=== PATIENT | male | born 1945 | race Caucasian/White ===

== ENCOUNTER 2023-06-13 19:51 | Inpatient (IN) | payer MEDICARE, MEDICAID, SELFPAY ==
[2023-06-13] VITALS (16 sets, daily range): BP systolic 100–150; BP diastolic 52–82; PULSE 95–118; RESP 20–30; TEMP 39.3–40.9; O2SAT 88–99; BMI 29.9
--- NOTE | ~2023-06-13 | XR_ITS ---
EXAMINATION: XR CHEST CLINICAL INFORMATION: SOB COMPARISON: Chest x-ray 06/13/2023 TECHNIQUE: Frontal view of the chest was obtained. FINDINGS: The lungs are somewhat expanded with patchy opacity seen in left lung base retrocardiac region. Heart size and pulmonary vascularity is normal. No gross bony abnormality seen. XR/XR chest 1V IMPRESSION: Patchy opacity left lung base retrocardiac region likely infiltrate.
--- NOTE | ~2023-06-13 | CT_ITS ---
EXAMINATION: CT head/brain wo IV con CLINICAL INFORMATION: Reason for Exam Fall, head injury, rule out fracture, bleed COMPARISON: None. TECHNIQUE: Contiguous axial imaging was performed from the skull base to vertex without intravenous contrast. Sagittal and coronal reformatted images were obtained. This CT examination was performed using dose optimization techniques as appropriate, variously including the following: * Automated exposure control * Adjustment of mA and/or kV according to patient size (this includes techniques or standardized protocols for targeted exams where dose is matched to indication/reason for exam; i.e. extremities or head) Use of iterative reconstruction technique DLP: 709 mGy-cm FINDINGS: Motion degraded examination somewhat compromising diagnostic assessment. Mild global cerebral volume loss. 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 No territorial loss of hardwick-white differentiation. No acute intracranial hemorrhage or extra-axial fluid collection. No mass lesion, significant mass effect, or herniation pattern. The orbits are grossly normal. Air-fluid level in the left sphenoid sinus, which is significantly opacified with some patchy hyperdense and partially mineralized contents, likely reflecting a combination of chronic inspissated secretions with possible fungal elements. Sclerotic wall thickening of the left sphenoid sinus gonzalez related to chronic sinusitis. Motion artifact limits assessment for subtle fractures, however no gross displaced fracture is seen. CT/CT head/brain wo IV con IMPRESSION: 1. No CT evidence of acute intracranial injury within limitations of motion artifact. 2. Significant opacification and air-fluid level in the left sphenoid sinus with sclerotic wall thickening that can be correlated clinically for acute on chronic sinusitis. Some patchy hyperdense and partially mineralized contents, likely reflecting a combination of chronic inspissated secretions with possible fungal elements.
--- NOTE | ~2023-06-13 | XR_ITS ---
EXAMINATION: XR CHEST CLINICAL INFORMATION: Fever. Cough. Rule out pneumonia. COMPARISON: None available. TECHNIQUE: Frontal view of the chest was obtained. FINDINGS: Multiple external artifacts overlie the thorax. Normal appearance of the cardiomediastinal structures. Left base airspace opacities are present with partial obscuration of the left hemidiaphragmatic and descending aortic margin's. Mild scattered reticular opacities are present in the right lung base. Low lung volumes are present with the fourth anterior rib segments terminating projection with the lung bases. No effusions or pneumothoraces identified. XR/XR chest 1V IMPRESSION: *Findings suspicious for mild left lower lobe consolidation and/or atelectasis. *Findings suspicious for minimal right base inflammatory changes.
--- NOTE | ~2023-06-13 | XR_ITS ---
EXAMINATION: XR CHEST 2 VIEWS CLINICAL INFORMATION: Dyspnea. COMPARISON: Prior chest radiographs, most recently 06/15/2023 and 06/13/2023. TECHNIQUE: Frontal and lateral views of the chest were obtained. FINDINGS: The heart size is least top normal. A left pericardial fat pad is unchanged. There is persistent patchy retrocardiac airspace disease. The right lung is relatively clear. No pleural effusion or pneumothorax is seen. There is no acute osseous abnormality. XR/XR chest 2V IMPRESSION: There is persistent retrocardiac airspace disease. The right lung presently appears clear. Recommend radiographic follow-up to full clearance.
--- NOTE | 2023-06-13 20:11 | ECG_ITS ---
Test Reason : SOB Blood Pressure : / mmHG Vent. Rate : 112 BPM Atrial Rate : 112 BPM P-R Int : 148 ms QRS Dur : 092 ms QT Int : 340 ms P-R-T Axes : 060 068 037 degrees QTc Int : 464 ms Sinus tachycardia with occasional Premature ventricular complexes Low voltage QRS Nonspecific ST abnormality Abnormal ECG No previous ECGs available Referred By: Generic ED Physician Electronically Signed By:SERENE PHAM MD
[2023-06-13] MEDS: Acetaminophen 325 MG TABLET 975 MG PO (20:27)
--- NOTE | 2023-06-13 20:31 | ED_ITS ---
HPI - Fall General Chief Complaint: Fever Stated Complaint: UNWIT FALL +HEADSTRIKE,?LOC Time Seen by Provider: 06/13/23 20:15 Source: patient Mode of arrival: EMS Limitations: no limitations History of Present Illness HPI Narrative: 77-year-old male resident of [facility] who presents emergency department for evaluation of multiple falls. Patient is not a reliable informant and told me that he fell out of bed. EMS report to nurses state that the patient fell 3 times at his facility. He felt earlier today but refused transport. After his 3rd fall which was unwitnessed, he was sent to emergency department by ambulance for evaluation. Patient is not on any blood thinners. According to EMS, multiple residents at the patient's rest home are positive for influenza. Patient states that he has had a cough which is productive of phlegm he does feel short of breath otherwise he has no complaints. He denied fever or chills despite having a temperature of 105.6 degrees rectally here in the emergency department. Related Data Allergies Allergy/AdvReac Type Severity Reaction Status Date / Time atorvastatin Allergy Unknown itching Verified 11/20/19 00:00 Review of Systems 2 Review of Systems: Yes Other (Patient is unreliable informant.) REPLACED BY [facility] Social History Social History Smoked in Last 30 Days: No Use of substances other than those prescribed or required for medical reasons: No Advance Directives: Yes Advance Directives Information Provided: No Advance Directives on File: No Physical Exam 2 Vital Signs: Vital Signs: Last Vital Signs Temp 103.1 F H 06/13/23 22:58 Pulse 104 H 06/13/23 22:58 Resp 28 H 06/13/23 22:58 BP 112/52 L 06/13/23 22:58 Pulse Ox 94 06/13/23 22:58 O2 Del Method Nasal Cannula 06/13/23 22:58 O2 Flow Rate 2 06/13/23 22:58 BMI result Body Mass Index 29.9 Vital signs did consistent with an high fever of 105.6 degrees F, elevated pulse of 102 elevated respiratory rate of 22. Exam: General: Awake, alert in no distress Head: Normocephalic, atraumatic EENT: PERRL, Lids normal, sclera normal, conjunctiva normal, nose normal , ears normal, throat without erythema or exudates, very dry mucous membranes Neck: Supple, no adenopathy Lung: Diffuse rhonchi with no wheezing or rales, breath sounds symmetric bilaterally Chest: symmetric movement, nontender Heart: regular rate and rhythm, normal S1, S2 no murmurs or rubs Abdomen: soft, non-tender, nondistended, normal bowel sounds Back: no vertebral tenderness, no CVAT Extremities: no deformities, moves all extremities symmetrically Neuro: Awake, alert, oriented to person lacks insight as to why he is here, normal speech, cranial nerves intact, moves all extremities symmetrically Psych: Pleasant, cooperative Medications Administered Discontinued Medications Generic Name Dose Route Start Last Admin Trade Name Татьяна PRN Reason Stop Dose Admin Acetaminophen 975 mg 06/13/23 20:22 06/13/23 20:27 Acetaminophen 325 Mg Tablet PO 06/13/23 20:23 975 mg ONCE ONE Administration Ceftriaxone Sodium 1 gm/ 50 mls @ 100 mls/hr 06/13/23 20:37 06/13/23 21:14 Sodium Chloride IV 06/13/23 21:06 Infused ONCE ONE Infusion Azithromycin 500 mg/ Sodium 250 mls @ 125 mls/hr 06/13/23 20:37 06/13/23 20:54 Chloride IV 06/13/23 22:36 125 mls/hr ONCE ONE Administration Sodium Chloride 2,601 mls @ 2,601 mls/hr 06/13/23 20:38 06/13/23 22:30 Ns 30 ml/kg infuse over 1 hr (2601 ml) 06/13/23 21:37 Infused IV Infusion .Q1H STA Medical Decision Making Medical Decision Making [facility] Narrative: 77-year-old male resident of [facility] who presents emergency department for evaluation 3 fall at his [facility] with the last fall being unwitnessed. Patient states that he has had a cough which is productive of phlegm he does feel short of breath otherwise he has no complaints. In the emergency department the patient had acute fever, elevated pulse and elevated respiratory rate. Following evaluation was ordered:CBC, CMP, troponin, lipase, BNP, lactic acid, magnesium, COVID-19, influenza blood cultures x2, chest x-ray, CT scan of the brain without IV contrast Patient was treated with the following: Acetaminophen 975 mg orally, Zithromax 500 mg IV ceftriaxone 1 g IV, normal saline 30 cc/kilogram bolus. 22:41 Differential diagnosis: Pneumonia, bronchitis, influenza, COVID-19, dehydration, volume depletion, electrolyte abnormalities, anemia My interpretation patient's laboratory evaluation is as follows: WBC was normal 5700. BUN elevated 53, creatinine elevated 2.06-this is most likely secondary to volume depletion and dehydration not caused by sepsis. Lactic acid was elevated 2.5 this is secondary to starvation ketosis. AST and ALT elevated 109 and 47 with a normal bilirubin of 0.6. Troponin was elevated at 42.6. 3 hour troponin is due at 23:30 hours. BNP was normal. Lipase was normal. COVID-19 was negative. Influenza was positive. Patient's was ordered to get Tamiflu 75 mg orally. Chest x-ray did reveal left lower lobe infiltrate, most consistent with viral pneumonia. Patient was treated with ceftriaxone and azithromycin for possible bacterial etiology Twelve EKG revealed no significant ST segment elevation or depression however baseline with significant artifact secondary to tremors. Admission/Observation Consideration of admission/observation: Escalation of care including admission/observation considered Consult Healthcare Provider Management of the patient was discussed with: Hospitalist Lab Data [facility] [place] Lab Attestation statement: I reviewed the patient's lab results. 06/13/23 20:26 06/13/23 20:26 Labs: Lab Results 06/13/23 06/13/23 Range/Units 20:26 22:40 WBC 5.7 (4.8-10.8) X10*3/uL RBC 4.72 (4.60-5.80) X10*6/uL Hgb 13.7 L (14.0-18.0) g/dl Hct 40.0 L (42.0-52.0) % MCV 84.7 (80.0-98.0) fL MCH 29.0 (27.0-33.0) pg MCHC 34.3 (31.0-36.0) g/dl RDW 14.5 (11.0-16.0) % Plt Count 169 (160-400) X10*3/uL MPV 9.7 (9.4-12.4) fL Immature Gran % (Auto) 0.4 (0.0-0.4) % Neut % (Auto) 82.9 H (45-73) % Lymph % (Auto) 7.2 L (20-40) % Hand % (Auto) 9.3 (2-11) % Eos % (Auto) 0.0 (0-4) % Baso % (Auto) 0.2 (0-2) % Lymph # (Auto) 0.4 L (1.2-4.9) X10*3/uL Hand # (Auto) 0.5 (0.1-1.2) X10*3/uL Eos # (Auto) 0.0 (0.0-0.4) X10*3/uL Baso # (Auto) 0.0 (0.0-0.2) X10*3/uL Abs Immat Gran (auto) 0.02 (0.00-0.03) X10*3/uL Absolute Neuts (auto) 4.7 (2.0-8.3) x10*3/uL Absolute Nucleated RBC 0.000 (0.0-0.012) X10*3/uL Nucleated RBC % (auto) 0.0 (0.0-0.2) /100WBC Hold Blue Top SEE NOTE Sodium 140 (135-145) mmol/L Potassium 3.9 (3.3-5.1) mmol/L Chloride 106 (96-108) mmol/L Carbon Dioxide 22 (22-29) mmol/L Anion Gap 16 (12-20) BUN 53 H (9-16) mg/dL Creatinine 2.06 H (0.5-1.4) mg/dL Estim Creat Clear Calc 31.5 Estimated GFR 31 Random Glucose 124 H (60-115) mg/dL Lactic Acid 2.5 H* (0.5-2.0) mmol/L Lactic Acid F/U @ 2Hr 1.2 (0.5-2.0) mmol/L Calcium 8.7 (8.4-10.2) mg/dL Magnesium 1.7 (1.6-2.6) mg/dL Total Bilirubin 0.6 (0.0-1.0) mg/dL AST 109 H (5-37) U/L ALT 47 H (0-40) U/L Alkaline Phosphatase 61 (39-117) U/L Troponin I High Sens 42.6 H (<3.5-35.0) ng/L B-Natriuretic Peptide 14 (<100) pg/mL Total Protein 8.0 (6.5-8.0) g/dL Albumin 4.4 (3.5-5.0) g/dL Lipase 32 (8-78) U/L COVID-19 (CAT) Negative (Negative) COVID-19 Clin Com See Note Influenza Type A (VALE) Positive A (Negative) Influenza Type B (VALE) Negative (Negative) Influenza A & B Note See Note Independent Interpretation I performed an independent interpretation of an: EKG and Plain X-Ray Interpretation: My independent interpretation patient's one-view chest x-ray is as follows: Left lower lobe infiltrate My independent interpretation done at 20:30 hours is as follows: Sinus tachycardia with a rate of 112, normal ND interval, QRS duration QTC interval, no ST segment elevation, no ST segment depression, baseline with significant artifact secondary to tremors but no obvious T-wave abnormalities. Radiology Impression Discussion of test interpretation with radiology: I have reviewed the radiologist's reading. Radiologist Impression: XR chest 1V IMPRESSION: *Findings suspicious for mild left lower lobe consolidation and/or atelectasis. *Findings suspicious for minimal right base inflammatory changes. Dictated By: Raphael Sargent MD CT head/brain wo IV con IMPRESSION: 1. No CT evidence of acute intracranial injury within limitations of motion artifact. 2. Significant opacification and air-fluid level in the left sphenoid sinus with sclerotic wall thickening that can be correlated clinically for acute on chronic sinusitis. Some patchy hyperdense and partially mineralized contents, likely reflecting a combination of chronic inspissated secretions with possible fungal elements. Dictated By: Shira Small Critical Care Time Critical Care Time Critical Care Time: Yes Total Critical Care Time: 45 Attestation: Critical Care: The patient was critically ill with a high probability of imminent or life threatening deterioration. I spent greater than 30 minutes of discontinuous time evaluating the patient,delivering critical care at the bedside, discussing and evaluating pertinent data with consultants. Critical care time does not include time spent performing separately billable procedures or teaching. Total time spent performing critical care was 45 minutes.
[2023-06-13 20:35] LABS: MANUAL DIFF FLAG NO
--- NOTE | 2023-06-13 20:35 | MHC.EDTECH ---
Patient came in by ambulance,changed into hospital attire,vitals taken and placed on the phototypesetting equipment monitor,Patient's initial temp rectally is 104.5, RN at bedside and was made aware. Rectal sensing probe was placed and temp is 105.3,BP 115/54 at this time.Blood Cultures,labs,covid,and flu obtained and sent to lab. EKG taken per order and signed by provider. Ice applied to underarms,and groin per request of provider. call castellanos in reach
[2023-06-13 20:37] LABS: Basophils Percent Auto 0.2 % (0-2); Hemoglobin 13.7 g/dl (14.0-18.0); Imm Gran Abs Auto 0.02 X10*3/uL (0.00-0.03); Imm Gran Pct Auto 0.4 % (0.0-0.4); Lymphocytes Absolute Auto 0.4 X10*3/uL (1.2-4.9); Lymphocytes Percent Auto 7.2 % (20-40); Mean Corpuscular HGB Conc 34.3 g/dl (31.0-36.0); Mean Corpuscular Volume 84.7 fL (80.0-98.0); Mean Platelet Volume 9.7 fL (9.4-12.4); Monocytes Absolute Auto 0.5 X10*3/uL (0.1-1.2); Monocytes Percent Auto 9.3 % (2-11); Neutrophils Absolute Auto 4.7 x10*3/uL (2.0-8.3); Neutrophils Percent Auto 82.9 % (45-73); Platelet Count 169 X10*3/uL (160-400); Red Blood Count 4.72 X10*6/uL (4.60-5.80); Red Cell Distribution Width 14.5 % (11.0-16.0); White Blood Count 5.7 X10*3/uL (4.8-10.8)
[2023-06-13] MEDS: cefTRIAXone sodium 1 GM in 0.9 % Sodium Chloride 50 ML IV (20:42)
[2023-06-13 20:50] LABS: Lactic Acid 2.5 mmol/L (0.5-2.0)
[2023-06-13 20:52] LABS: Alanine Aminotransferase 47 U/L (0-40); Albumin Level 4.4 g/dL (3.5-5.0); Alkaline Phosphatase 61 U/L (39-117); Anion Gap 16 (12-20); Aspartate Amino Transferase 109 U/L (5-37); Bilirubin Total 0.6 mg/dL (0.0-1.0); Blood Urea Nitrogen 53 mg/dL (9-16); Calcium 8.7 mg/dL (8.4-10.2); Carbon Dioxide 22 mmol/L (22-29); Chloride 106 mmol/L (96-108); Creatinine Clr Calc Pharmacy 31.5; Estimated Glomerular Filt Rate 31; Glucose Random 124 mg/dL (60-115); Magnesium 1.7 mg/dL (1.6-2.6); Potassium 3.9 mmol/L (3.3-5.1); Sodium 140 mmol/L (135-145)
[2023-06-13] MEDS: Azithromycin 500 MG in 0.9 % Sodium Chloride 250 ML 125 MG IV (20:54)
[2023-06-13 20:58] LABS: B Type Natriuretic Peptide 14 pg/mL (<100)
[2023-06-13 20:59] LABS: Troponin-I High Sensitivity 42.6 ng/L (<3.5-35.0)
[2023-06-13 21:01] LABS: IDNOW Serial# 08D9AD1C; IDNOW Serial# 152EDE1D; Influenza A Positive (Negative); Influenza B2 Negative (Negative)
[2023-06-13 21:02] LABS: COVID-19 Test Negative (Negative)
--- NOTE | 2023-06-13 21:06 | PC.NURSE ---
Patient admitted from [facility] S/P fall. Patient's intial rectal temp 104.5, ST on monitor, sepsis protocol initiated per Dr. Lamas. Patient presently getting IV fluid bolus per protocol, abx running, on tele with continual rectal temp monitoring.
[2023-06-13 21:11] LABS: Lipase 32 U/L (8-78)
--- NOTE | 2023-06-13 21:22 | MHC.EDTECH ---
Patient temp at this time is 104.5,BP is 138/52 RN ia aware,patient was incont of stool and placed on the bedpan at this time,
--- NOTE | 2023-06-13 21:28 | MHC.EDTECH ---
Patient was incot. of a small amount of liquid/soft brown stool,brayden-care giving and patient was respoitioned.
--- NOTE | 2023-06-13 21:36 | MHC.EDTECH ---
Placed a [place] Cath due to patient being incot. to keep patient clean and dry, patient tolerated well. RN aware, Vitals at this time 104.0, BP 112/54 RN aware
--- NOTE | 2023-06-13 22:03 | MHC.EDTECH ---
Patient just got back from CT-Scan,Temp is 103.1, BP 117/55 RN aware at bedside.
[2023-06-13 22:34] LABS: Reflex Lactate? Lactic Acid Added
--- NOTE | 2023-06-13 22:42 | PC.NURSE ---
IV Fluids infused, abx infused, patient resting quietly in bed, whifty at times responding well to redirection, Juani Greene presently in room drawing second lactic.
--- NOTE | 2023-06-13 22:46 | MHC.EDTECH ---
Repeat lactic obtained and sent to lab,vitals taken,temp is 102.9,BP is 111/59 RN aware
[2023-06-13 22:57] LABS: ~Lactic Acid-LAB USE ONLY 1.2 mmol/L (0.5-2.0)
--- NOTE | 2023-06-13 23:00 | PC.NURSE ---
This abstract writer assumed care of this Pt at 2300. Pt awake, denies any pain. Febrile via rectal probe. Pt has productive cough with audible wheezing, SpO2 94% on 2L via NC, RR 26. Plan of care on going.
--- NOTE | 2023-06-13 23:00 | MHC.EDTECH ---
Patient's temp is 103.1 BP 112/52 and RN were made aware.
[2023-06-13] MEDS: Ibuprofen 400 MG TABLET PO (23:39)
[2023-06-13] MEDS: Oseltamivir Phosphate 75 MG CAPSULE PO (23:39)
--- NOTE | 2023-06-13 23:40 | MHC.EDTECH ---
Hourly rounds and vitals completed,temp is 103.5 ,BP is 100/58 RN Roslyn made aware,Patient was repositioned to comfort,patient given a cup of ice water and drank all of it. Repeat trop obtained and sent to lab.Belonging list completed and copy placed in chart.
[2023-06-14] VITALS (25 sets, daily range): BP systolic 80–164; BP diastolic 43–88; PULSE 65–111; RESP 16–30; TEMP 35.8–40.2; O2SAT 93–98; BMI 30.4
[2023-06-14 00:11] LABS: Troponin-I High Sensitivity 55.5 ng/L (<3.5-35.0)
--- NOTE | 2023-06-14 00:19 | PC.NURSE ---
Pt has not voided, bladder scan [address] Juan Downs made aware.
[2023-06-14] MEDS: 0.9 % Sodium Chloride 1,000 ML 100 ML IVCONT (00:44)
[2023-06-14] MEDS: Albuterol/Iprat 2.5/0.5MG 3 ML AMPUL.NEB INHALE ×3 (00:45→19:06)
[2023-06-14] MEDS: methylPREDNISolone Sod Succ 125 MG/2 ML VIAL 80 MG IVPUSH (00:49)
[2023-06-14] MEDS: 0.9 % Sodium Chloride Flush 3 ML SYRINGE IVFLUSH ×2 (00:50→19:50)
--- NOTE | 2023-06-14 00:50 | MHC.EDTECH ---
This tech bladder scanned patient due to not voiding since patient arrived,amount 433,RN Roslyn made aware,temp sensing Perez is being placed by RN at this time.
--- NOTE | 2023-06-14 00:59 | MHC.EDTECH ---
Emptied 600MLS of yellow urine from Perez,urine sample obtained and sent to lab, patient's temp is 104.4.BP is 122/65 RN Roslyn made aware
--- NOTE | 2023-06-14 01:00 | PC.NURSE ---
Temp sensing 16F f/c placed, Pt tolerated well. 600 mL of clear yellow urine draining.
[2023-06-14 01:21] LABS: Appearance Urine Cloudy; Color Urine Yellow; Glucose Urine UA Negative (Negative); Leukocyte Esterase Urine Negative (Negative); Nitrite Urine Negative (Negative); PH 5.5 (5.0-9.0); UMIC TRIGGER UACC YES; Urine Blood Large (3+) (Negative); Urine Ketones Trace mg/dL (Negative); Urine Protein 100 (2+) mg/dL (Neg-Trace)
[2023-06-14 01:32] LABS: Bacteria Urine None Seen (None Seen); Granular Casts Urine Present; Hyaline Casts Urine 0-2 /LPF (0-2); RBC Urine 0-2 /HPF (0-2); Squamous Epithelial Cell Urine 0-2 /HPF (0-2); WBC Urine 0-5 /HPF (0-5)
--- NOTE | 2023-06-14 01:41 | PM.IMHP ---
History of Present Illness Date of Service: 06/13/23 Attending physician on admission: Luz Downs Chief Complaint: I have the flu Thierno Maki is a 77 years old man who was brought to the emergency department from nursing facility due to multiple falls. Patient is a vague historian and seems to be confused. He was only capable of telling me that he has the flu. He even denies having a cough while I was watching him coughing. In the ED, he was found to have fever, tachycardia tachypnea. Blood workup showed no leukocytosis or band. Lactic acid initially was 2.5 but normalized. Creatinine is 2.06. Troponin elevated x2. BNP is normal. Viral testing for influenza A. Urinalysis showed no evidence of urinary tract infection. Head CT scan showed no acute intracranial abnormalities, however it showed changes of acute on chronic sinusitis. CXR showed mid left lower lobe consolidated and/or atelectasis. ED tx: Ibuprofen 400 mg p.o., Tamiflu 75 mg p.o., azithromycin 500 mg IV, acetaminophen 972 mg p.o., ceftriaxone 1 g IV, NS 2 L bolus. Review of Systems Review of Systems: Yes Unobtainable due to mental status PMFSH Social History Smoked in Last 30 Days: No Use of substances other than those prescribed or required for medical reasons: No Advance Directives: Yes Advance Directives Information Provided: No Advance Directives on File: No Meds Allergies Allergy/AdvReac Type Severity Reaction Status Date / Time atorvastatin Allergy Unknown itching Verified 11/20/19 00:00 Active Medications: Current Medications Acetaminophen (Acetaminophen 325 Mg Tablet) 975 mg PO Q6H PRN PRN Reason: fever and pain Heparin Sodium (Porcine) (Heparin Sodium,Porcine 5,000 Unit/Ml Vial) 5,000 unit SUBCUT Q12H [facility] Ceftriaxone Sodium 1 gm/ (Sodium Chloride) 50 mls @ 100 mls/hr IV DAILY [facility] Azithromycin 500 mg/ Sodium (Chloride) 250 mls @ 125 mls/hr IV DAILY [facility] Sodium Chloride (Ns) 1,000 mls @ 100 mls/hr IVCONT .Q10H [facility] Last Admin: 06/14/23 00:44 Dose: 100 mls/hr Oseltamivir Phosphate (Oseltamivir Phosphate 30 Mg Capsule) 30 mg PO BID [facility] Pantoprazole Sodium (Pantoprazole Sodium 40 Mg/10 Ml Vial) 40 mg IVPUSH DAILY [facility] Sodium Chloride (0.9 % Sodium Chloride Flush 3 Ml Syringe) 3 ml IVFLUSH QSHIFT [facility] Last Admin: 06/14/23 00:50 Dose: 3 ml Physical Exam Vital Signs and Narrative: Vital Signs: Last Vital Signs Temp 104.4 F H 06/14/23 00:54 Pulse 109 H 06/14/23 00:54 Resp 24 H 06/14/23 00:54 BP 122/65 06/14/23 00:54 Pulse Ox 94 06/14/23 00:54 O2 Del Method Nasal Cannula 06/14/23 00:54 O2 Flow Rate 2 06/14/23 00:54 BMI result Body Mass Index 29.9 Constitutional - Awake and Alert. Febrile. Acutely ill. HEENT - dry oral mucosa. Heart - Tachycardia. Regular rate Lungs - Normal lung expansion, Normal respiratory effort, No respiratory distress, tachypnea, bilateral rhonchi, end expiratory wheezing. Abdomen - NT / ND; +BS; No rebound or guarding Extremities - no calf tenderness bilaterally, no swelling Musculoskeletal - Normal inspection, normal ROM Skin - Warm/Dry Neurological - Alert & oriented x1. No focal weakness grossly noted. Psychological - Depressed affect Results Labs 06/13/23 20:26 06/13/23 20:26 Labs: Laboratory Results - last 24 hr 06/13/23 06/13/23 06/13/23 20:26 22:40 23:39 MCV 84.7 MCH 29.0 MCHC 34.3 RDW 14.5 Plt Count 169 MPV 9.7 Immature Gran % (Auto) 0.4 Neut % (Auto) 82.9 H Lymph % (Auto) 7.2 L [place] % (Auto) 9.3 Eos % (Auto) 0.0 Baso % (Auto) 0.2 Lymph # (Auto) 0.4 L [place] # (Auto) 0.5 Eos # (Auto) 0.0 Baso # (Auto) 0.0 Abs Immat Gran (auto) 0.02 Absolute Neuts (auto) 4.7 Absolute Nucleated RBC 0.000 Nucleated RBC % (auto) 0.0 Hold Blue Top SEE NOTE Anion Gap 16 Estim Creat Clear Calc 31.5 Estimated GFR 31 Random Glucose 124 H Lactic Acid 2.5 H* Lactic Acid F/U @ 2Hr 1.2 Calcium 8.7 Magnesium 1.7 Total Bilirubin 0.6 AST 109 H ALT 47 H Alkaline Phosphatase 61 Troponin I High Sens 42.6 H 55.5 H B-Natriuretic Peptide 14 Total Protein 8.0 Albumin 4.4 Lipase 32 Urine Color Urine Appearance Urine pH Ur Specific [place] Urine Protein Urine Glucose (UA) Urine Ketones Urine Blood Urine Nitrite Ur Leukocyte Esterase Urine RBC Urine WBC Ur Squamous Epith Cells Urine Bacteria Hyaline Casts Granular Casts COVID-19 (CAT) Negative COVID-19 Clin Com See Note Influenza Type A (VALE) Positive A Influenza Type B (VALE) Negative Influenza A & B Note See Note 06/14/23 01:13 MCV MCH MCHC RDW Plt Count MPV Immature Gran % (Auto) Neut % (Auto) Lymph % (Auto) [place] % (Auto) Eos % (Auto) Baso % (Auto) Lymph # (Auto) [place] # (Auto) Eos # (Auto) Baso # (Auto) Abs Immat Gran (auto) Absolute Neuts (auto) Absolute Nucleated RBC Nucleated RBC % (auto) Hold Blue Top Anion Gap Estim Creat Clear Calc Estimated GFR Random Glucose Lactic Acid Lactic Acid F/U @ 2Hr Calcium Magnesium Total Bilirubin AST ALT Alkaline Phosphatase Troponin I High Sens B-Natriuretic Peptide Total Protein Albumin Lipase Urine Color Yellow Urine Appearance Cloudy Urine pH 5.5 Ur Specific [place] 1.020 Urine Protein 100 (2+) H Urine Glucose (UA) Negative Urine Ketones Trace Urine Blood Large (3+) H Urine Nitrite Negative Ur Leukocyte Esterase Negative Urine RBC 0-2 Urine WBC 0-5 Ur Squamous Epith Cells 0-2 Urine Bacteria None Seen Hyaline Casts 0-2 Granular Casts Present COVID-19 (CAT) COVID-19 Clin Com Influenza Type A (VALE) Influenza Type B (VALE) Influenza A & B Note Imaging Radiologist's Impressions: Impressions Chest X-Ray 06/13/23 21:05 IMPRESSION: *Findings suspicious for mild left lower lobe consolidation and/or atelectasis. *Findings suspicious for minimal right base inflammatory changes. Head CT 06/13/23 22:01 IMPRESSION: 1. No CT evidence of acute intracranial injury within limitations of motion artifact. 2. Significant opacification and air-fluid level in the left sphenoid sinus with sclerotic wall thickening that can be correlated clinically for acute on chronic sinusitis. Some patchy hyperdense and partially mineralized contents, likely reflecting a combination of chronic inspissated secretions with possible fungal elements. Assessment and Plan (1) Influenza A: Status: Acute (2) Pneumonia: Qualifiers: Laterality: left Lung location: lower lobe of lung Pneumonia type: due to unspecified organism Qualified Code(s): J18.9 - Pneumonia, unspecified organism Status: Acute (3) Acute hypoxic respiratory failure: Status: Acute (4) ENEDELIA (acute kidney injury): Status: Acute (5) Elevated troponin: Status: Acute Plan Thierno Maki is a 77 years old man admitted with: Acute hypoxic respiratory failure secondary to pneumonia due to influenza + likely superimposed bacterial infection. Admit to hospitalist service. Telemetry. Pulse oximetry. Continue supplemental oxygen to keep oxygen saturation > 90%. Continue empiric IV antibiotic therapy with azithromycin and ceftriaxone. Complete a course of Tamiflu X 5 days. Start treatment with bronchodilator therapy. Solu-Medrol 80 mg IV x1 (to help with bronchospasm and also in attempt to control his temp -most recent 104.4 as Tylenol and Motrin has not been helping to control his temperature. Severe sepsis secondary to above. Lactic acidosis resolved. Continue empiric IV antibiotic therapy and IV fluids. NS bolus given in ED. Blood cultures were obtained (will follow results). Renal failure (no previous history of renal failure or baseline creatinine found). Continue IV fluids. Avoid nephrotoxic agents. Continue to monitor renal function. Elevated troponin. Likely demand ischemia due to tachycardia. Continue to monitor troponin. DVT prophylaxis: Heparin subcut Code status: Full Patient will need hospitalization for at least 2 midnights for acute hypoxic respiratory failure therapy secondary to pneumonia (possible superimposed by bacterial) treatment with supplemental oxygen, IV antibiotics, IV fluids and bronchodilator therapy. Quality Stroke Does the patient have a stroke diagnosis?: No VTE Prior VTE?: No VTE Risk Level:: Medical - moderate - high VTE Device Contraindication: Treatment Not Indicated VTE Drug Contraindication: N/A - Med Ordered
--- NOTE | 2023-06-14 02:15 | MHC.EDTECH ---
Patient was incont. of a large amount of liquid brown stool, patient was cleaned and repositioned,rectal sensing probe removed, switched to the temp sensing Perez that RN placed. rounds and vitals completed and temp is 104.4,BP is 109/47 RN Roslyn made aware. Call castellanos in reach
[2023-06-14] MEDS: Acetaminophen 1,000 MG/100 ML PIGGYBACK 400 MG IV (02:36)
--- NOTE | 2023-06-14 02:39 | MHC.EDTECH ---
Vitals taken and BP is 101/57,Temp is 104.0 RN made aware,patient is resting at this time and call castellanos in reach
--- NOTE | 2023-06-14 02:58 | MHC.EDTECH ---
Vitals taken and BP is 92/53,temp 103.6 RN Roslyn aware and is at bedside
[2023-06-14] MEDS: 0.9 % Sodium Chloride 1,000 ML 999 ML IV (03:01)
--- NOTE | 2023-06-14 03:28 | MHC.EDTECH ---
Hourly rounds and vitals completed,BP is low 90/43 Temp is 101.7 RN Roslyn was made aware. Patient is resting comfortably at this time.
--- NOTE | 2023-06-14 03:29 | MHC.EDTECH ---
Report giving to the tech taking over at this time.
[2023-06-14] MEDS: vancomycin/NS 2,000 MG/500 ML PLAST..BAG 250 MG IV (03:48)
--- NOTE | 2023-06-14 03:54 | PC.NURSE ---
BP still hypotensive despite 1L NS bolus administration. Provider Vani Martinez made aware, new order given for additional bolus.
[2023-06-14] MEDS: 0.9 % Sodium Chloride 500 ML 999 ML IV (04:09)
[2023-06-14] MEDS: Albumin Human 25 % 100 ML IV ×2 (04:31→05:51)
--- NOTE | 2023-06-14 04:56 | MHC.EDTECH ---
Patients BP is 87/55,temp 97.5,RN is at bedside and is aware
[2023-06-14 05:19] LABS: Hemoglobin 10.6 g/dl (14.0-18.0); Mean Corpuscular HGB Conc 34.2 g/dl (31.0-36.0); Mean Corpuscular Hemoglobin 29.4 pg (27.0-33.0); Mean Corpuscular Volume 86.1 fL (80.0-98.0); Mean Platelet Volume 9.6 fL (9.4-12.4); Platelet Count 104 X10*3/uL (160-400); Red Cell Distribution Width 14.6 % (11.0-16.0)
[2023-06-14 05:23] LABS: White Blood Count 2.3 X10*3/uL (4.8-10.8)
[2023-06-14 05:42] LABS: Troponin-I High Sensitivity 63.8 ng/L (<3.5-35.0)
--- NOTE | 2023-06-14 05:43 | MHC.EDTECH ---
Hourly rounds and vitals completed,patient's temp is 96.8,BP is 93/58 RN Roslyn made aware
--- NOTE | 2023-06-14 05:53 | MHC.EDTECH ---
Perez emptied 450MLS of yellow urine.
[2023-06-14 05:57] LABS: Alanine Aminotransferase 43 U/L (0-40); Alkaline Phosphatase 40 U/L (39-117); Anion Gap 15 (12-20); Aspartate Amino Transferase 128 U/L (5-37); Bilirubin Total 0.4 mg/dL (0.0-1.0); Blood Urea Nitrogen 40 mg/dL (9-16); Calcium 6.6 mg/dL (8.4-10.2); Carbon Dioxide 15 mmol/L (22-29); Chloride 115 mmol/L (96-108); Creatinine Clr Calc Pharmacy 40.4; Estimated Glomerular Filt Rate 42; Glucose Random 110 mg/dL (60-115); Magnesium 1.5 mg/dL (1.6-2.6); Sodium 142 mmol/L (135-145); Total Protein 5.5 g/dL (6.5-8.0)
[2023-06-14 06:09] LABS: Band Neutrophils Percent 42 % (3-5); Lymphocytes Absolute Manual 0.4 X10*3/uL (1.2-4.9); Lymphocytes Percent Manual 16 % (20-40); Metamyelocytes Percent 2 %; Monocytes Absolute Manual 0.2 X10*3/uL (0.1-1.2); Monocytes Percent Manual 9 % (2-11); Neutrophils Absolute Manual 1.7 X10*3/uL (2.0-8.3); Neutrophils Percent Manual 31 % (45-73)
[2023-06-14 06:11] LABS: Acanthocytes 1+ (0-2) /OIF; Platelet Estimate DECREASED (NORMAL); Platelet Morphology Comment NORMAL; RBC Morphology NOTED; Toxic Vacuolation PRESENT
--- NOTE | 2023-06-14 06:46 | MHC.EDTECH ---
Patients's temp is 96.4 and BP is 118/75 RN is aware and at bedside.
--- NOTE | 2023-06-14 07:18 | PM.EVENT ---
Event Note Date of Service: 06/14/23 Event Note: Patient's blood pressure started to drop significantly. He received 1 L of normal saline (boluses). Vancomycin was added to current treatment. Discussed with ICU provider: Recommend treatment with albumin. After all these interventions patient blood pressure increased to 118/75 and tachycardia resolved. Temperature is 96.4 (will continue to monitor for now) Time Spent With Patient Time: Total time managing care of this patient today ____ minutes.
--- NOTE | 2023-06-14 07:24 | PC.NURSE ---
Temp 96.4 via temp sensing denisse. Provider Vani Downs made aware, no new orders at this time.
[2023-06-14] MEDS: Magnesium Sulfate/H2O 2 GM/50 ML PIGGYBACK IV (07:37)
[2023-06-14] MEDS: KCl 40 mEq in 0.9 % Sodium Chl 40 MEQ/1,000 ML IV.SOLN 100 MEQ IVCONT (07:38)
--- NOTE | 2023-06-14 07:46 | PHA.PROG ---
Admission Date/Time: June 13, 2023 23:49 Indication: Sepsis Weight in k.7 kg Adjusted body weight in K.34 Serum Creatinine - Last 168 Hours 06/13/23 06/14/23 20:26 04:23 Creatinine 2.06 H 1.61 H Estimated CrCl and GFR - Last 168 Hours 06/13/23 06/14/23 20:26 04:23 Estim Creat Clear Calc 31.5 40.4 Estimated GFR 31 42 Vancomycin Loading Dose: 2,000mg Current Vancomycin Dosing Regimen: 1,250mg Q24H Vancomycin Monitoring using AUC goal of 400 - 600 range with trough as surrogate marker: 583 Date and Time for next Vancomycin Level to be drawn: 06/17 at 05:00 Pharmacist Comments on Vancomycin Plan: Vancomycin dosing will take advantage of [employer] as a clinical decision support tool that uses Bayesian modeling to calculate individual patient's pharmacokinetic parameters and forecast the patient's drug concentration time course with the target goal AUC 24 range of 400 - 600 mg/L/hr.
[2023-06-14] MEDS: Albuterol Sulfate 2.5 MG, Albuterol/Iprat 2.5/0.5MG 3 ML 3 ML INHALE (08:07)
--- NOTE | 2023-06-14 08:21 | PC.NURSE ---
Okay to place Bronchodilator protocol per Dr Caceres, pt noted with audible wheezing. RT to bedside and treatment given with effect.
[2023-06-14] MEDS: Potassium Chloride ER 20 MEQ TAB.ER.PRT PO (09:18)
[2023-06-14] MEDS: Sodium Bicarbonate 650 MG TABLET PO ×2 (09:18→19:49)
[2023-06-14] MEDS: Pantoprazole Sodium 40 MG/10 ML VIAL IVPUSH (09:21)
[2023-06-14] MEDS: Heparin Sodium,Porcine 5,000 UNIT/ML VIAL 5000 UNIT SUBCUT ×2 (09:22→19:50)
[2023-06-14] MEDS: cefTRIAXone sodium 1 GM in 0.9 % Sodium Chloride 50 ML IV (09:24)
[2023-06-14] MEDS: Oseltamivir Phosphate 30 MG CAPSULE PO ×2 (09:25→19:49)
--- NOTE | 2023-06-14 09:25 | MHC.CM.PN ---
CM met with Patient in the ED, at bedside and addressed IMM with him, providing Patient with the original and a copy will be placed on the chart. Patient lives in a [facility] and returning there is the goal; CM has initiated and will follow for dc planning. Patient's Daughter/Taya is the HCP and the PCP is Dr. Odell Velasco.
--- NOTE | 2023-06-14 09:29 | PHA.MEDREC ---
Pharmacy Consult ? Medication Reconciliation Pharmacy has completed the medication reconciliation. Spoke to patient and confirmed medication list.
[2023-06-14] MEDS: Azithromycin 500 MG in 0.9 % Sodium Chloride 250 ML 125 MG IV (10:26)
--- NOTE | 2023-06-14 13:16 | PC.NURSE ---
pts daughter (HCP) called, asks for an update once he is admitted to floor. Taya- [phone]
--- NOTE | 2023-06-14 15:00 | PC.NURSE ---
pump malfunction, infusion restarted, 900 mL remaining.
--- NOTE | 2023-06-14 15:14 | P.PNIM_ITS ---
Subjective Subjective Date of Service: 06/14/23 Interval History: Acute hypoxic respiratory failure Review of Systems sob somewhat improving, has cough fevers overnight overnight events noted Physical Exam 2 Vital Signs: Vital Signs: Last Vital Signs Temp 96.8 F 06/14/23 12:45 Pulse 65 06/14/23 12:45 Resp 20 06/14/23 12:45 BP 100/70 06/14/23 12:45 Pulse Ox 97 06/14/23 12:45 O2 Del Method Nasal Cannula 06/14/23 12:45 O2 Flow Rate 2 06/14/23 12:45 BMI result Body Mass Index 29.9 Appearance: Alert.? Oriented .? cvs: rrr, [id number] , no murmur res: air entry diminshed ,few rhonchii b/l, no rales abd: no rebound or guarding ,nt, bs present. ext pulses present , no cyanosis . neuro: nonfocal. Objective Data Active Medications Acetaminophen (Acetaminophen 325 Mg Tablet) 975 mg PO Q6H PRN PRN Reason: fever and pain Guaifenesin (Guaifenesin 100 Mg/5 Ml Liquid) 5 ml PO Q4H PRN PRN Reason: Cough Heparin Sodium (Porcine) (Heparin Sodium,Porcine 5,000 Unit/Ml Vial) 5,000 unit SUBCUT Q12H [facility] Last Admin: 06/14/23 09:22 Dose: 5,000 unit Documented By: CAROLINE Ceftriaxone Sodium 1 gm/ (Sodium Chloride) 50 mls @ 100 mls/hr IV DAILY [facility] Last Infusion: 06/14/23 10:26 Dose: Infused Documented By: CAROLINE Azithromycin 500 mg/ Sodium (Chloride) 250 mls @ 125 mls/hr IV DAILY [facility] Last Infusion: 06/14/23 12:35 Dose: Infused Documented By: RY Potassium Chloride/Sodium Chloride (Kcl 40 Meq In 0.9 % Sodium Chl) 40 meq in 1,000 mls @ 100 mls/hr IVCONT .Q10H [facility] Last Admin: 06/14/23 07:38 Dose: 100 mls/hr Documented By: CAORLINE Vancomycin HCl 1,250 mg/ (Sodium Chloride) 250 mls @ 166.667 mls/hr IV Q24H [facility] Oseltamivir Phosphate (Oseltamivir Phosphate 30 Mg Capsule) 30 mg PO BID [facility] Last Admin: 06/14/23 09:25 Dose: 30 mg Documented By: CAROLINE Pantoprazole Sodium (Pantoprazole Sodium 40 Mg/10 Ml Vial) 40 mg IVPUSH DAILY [facility] Last Admin: 06/14/23 09:21 Dose: 40 mg Documented By: CAROLINE Pharmacy Consult (Consult Rx Vancomycin Dosing) 1 each MISCELLANE DAILY PRN PRN Reason: Consult order Sodium Bicarbonate (Sodium Bicarbonate 650 Mg Tablet) 650 mg PO BID [facility] Last Admin: 06/14/23 09:18 Dose: 650 mg Documented By: CAROLINE Sodium Chloride (0.9 % Sodium Chloride Flush 3 Ml Syringe) 3 ml IVFLUSH QSHIFT [facility] Last Admin: 06/14/23 15:02 Dose: Not Given Documented By: CAROLINE Non-Admin Reason: IV Running Labs 06/14/23 04:23 06/14/23 04:23 Labs: Laboratory Results - last 24 hr 06/13/23 06/13/23 06/13/23 20:26 22:40 23:39 MCV 84.7 MCH 29.0 MCHC 34.3 RDW 14.5 Plt Count 169 MPV 9.7 Immature Gran % (Auto) 0.4 Neut % (Auto) 82.9 H Lymph % (Auto) 7.2 L [place] % (Auto) 9.3 Eos % (Auto) 0.0 Baso % (Auto) 0.2 Lymph # (Auto) 0.4 L [place] # (Auto) 0.5 Eos # (Auto) 0.0 Baso # (Auto) 0.0 Abs Immat Gran (auto) 0.02 Absolute Neuts (auto) 4.7 Absolute Nucleated RBC 0.000 Nucleated RBC % (auto) 0.0 Neutrophils % (Manual) Band Neutrophils % Lymphocytes % (Manual) Monocytes % (Manual) Metamyelocytes % Abs Neuts (Manual) Lymphocytes # (Manual) Monocytes # (Manual) Toxic Vacuolation Platelet Estimate Plt Morphology Comment RBC Morphology Acanthocytes (Spur) Smear Path Review Hold Blue Top SEE NOTE Anion Gap 16 Estim Creat Clear Calc 31.5 Estimated GFR 31 Random Glucose 124 H Lactic Acid 2.5 H* Lactic Acid F/U @ 2Hr 1.2 Calcium 8.7 Magnesium 1.7 Total Bilirubin 0.6 AST 109 H ALT 47 H Alkaline Phosphatase 61 Troponin I High Sens 42.6 H 55.5 H B-Natriuretic Peptide 14 Total Protein 8.0 Albumin 4.4 Lipase 32 Urine Color Urine Appearance Urine pH Ur Specific [place] Urine Protein Urine Glucose (UA) Urine Ketones Urine Blood Urine Nitrite Ur Leukocyte Esterase Urine RBC Urine WBC Ur Squamous Epith Cells Urine Bacteria Hyaline Casts Granular Casts COVID-19 (CAT) Negative COVID-19 Clin Com See Note Influenza Type A (VALE) Positive A Influenza Type B (VALE) Negative Influenza A & B Note See Note 06/14/23 06/14/23 06/14/23 01:13 04:04 04:23 MCV 86.1 MCH 29.4 MCHC 34.2 RDW 14.6 Plt Count 104 L D MPV 9.6 Immature Gran % (Auto) Cancelled Neut % (Auto) Cancelled Lymph % (Auto) Cancelled [place] % (Auto) Cancelled Eos % (Auto) Cancelled Baso % (Auto) Cancelled Lymph # (Auto) Cancelled [place] # (Auto) Cancelled Eos # (Auto) Cancelled Baso # (Auto) Cancelled Abs Immat Gran (auto) Cancelled Absolute Neuts (auto) Cancelled Absolute Nucleated RBC 0.000 Nucleated RBC % (auto) 0.0 Neutrophils % (Manual) 31 L Band Neutrophils % 42 H Lymphocytes % (Manual) 16 L Monocytes % (Manual) 9 Metamyelocytes % 2 Abs Neuts (Manual) 1.7 L Lymphocytes # (Manual) 0.4 L Monocytes # (Manual) 0.2 Toxic Vacuolation PRESENT Platelet Estimate DECREASED Plt Morphology Comment NORMAL RBC Morphology NOTED Acanthocytes (Spur) 1+ (0-2) Smear Path Review SEE NOTE Hold Blue Top Anion Gap 15 Estim Creat Clear Calc 40.4 Estimated GFR 42 Random Glucose 110 Lactic Acid 1.0 Lactic Acid F/U @ 2Hr Calcium 6.6 L D Magnesium 1.5 L Total Bilirubin 0.4 AST 128 H ALT 43 H Alkaline Phosphatase 40 Troponin I High Sens 63.8 H B-Natriuretic Peptide Total Protein 5.5 L Albumin 3.0 L Lipase Urine Color Yellow Urine Appearance Cloudy Urine pH 5.5 Ur Specific [place] 1.020 Urine Protein 100 (2+) H Urine Glucose (UA) Negative Urine Ketones Trace Urine Blood Large (3+) H Urine Nitrite Negative Ur Leukocyte Esterase Negative Urine RBC 0-2 Urine WBC 0-5 Ur Squamous Epith Cells 0-2 Urine Bacteria None Seen Hyaline Casts 0-2 Granular Casts Present COVID-19 (CAT) COVID-19 Clin Com Influenza Type A (VALE) Influenza Type B (VALE) Influenza A & B Note Assessment and Plan (1) ENEDELIA (acute kidney injury): Status: Acute (2) Acute hypoxic respiratory failure: Status: Acute Assessment and Plan: 77 years old man admitted with: Acute hypoxic respiratory failure possible secondary to pneumonia due to influenza + likely superimposed bacterial infection. moniter Pulse oximetry. Continue supplemental oxygen to keep oxygen saturation > 90%. has intermittent fevers ,blood cultures pending continue IV antibiotic therapy with azithromycin and ceftriaxone and vanco intiated on 06/14,Tamiflu X 5 days, bronchodilator therapy,iv solumedrole. moniter vanco trough ,renal function/electrolytes Severe sepsis secondary to above. Lactic acidosis resolved recived ivf. Continue empiric IV antibiotic therapy ,Blood cultures pending. Renal failure (no previous history of renal failure or baseline creatinine found). renal function improving with IV fluids. Avoid nephrotoxic agents. Continue to monitor renal function. hypokalemia/hypomagnesemia /hypocalcemia : on ivf with potassium Hypomagnesemia repletions ordered, as well as hypocalcemia mild(around 7.4)when corrected for albumin: added calcium carbonate. added nephro eval. Elevated troponin. Likely demand ischemia due to tachycardia. Continue to monitor troponin. DVT prophylaxis: Heparin subcut acute hypoxic respiratory failure possible secondary to pneumonia , ENEDELIA, multiple electrolytic abnormalities: Patient need broad-spectrum IV antibiotics, renal function electrolyte monitoring as well as patient is currently oxygen dependent due to acute hypoxemic respiratory failure-in my opinion patient would benefit from 48-72 hours of hospital stay. Quality Stroke Does the patient have a stroke diagnosis?: No VTE Prior VTE?: No VTE Risk Level:: Medical - moderate - high VTE Device Contraindication: Treatment Not Indicated VTE Drug Contraindication: N/A - Med Ordered
[2023-06-14] MEDS: methylPREDNISolone Sod Succ 40 MG/ML VIAL IVPUSH (17:06)
[2023-06-14] MEDS: Atorvastatin Calcium 80 MG TABLET PO (19:49)
--- NOTE | 2023-06-14 20:38 | PM.CNNEP ---
History of Present Illness Reason for Consult Consult date: 06/14/23 Reason for consult: ENEDELIA Chief Complaint Chief complaint: Hypoxic Respiratory Failure History of Present Illness Narrative: Thierno Maki is a 77 years old man who was brought to the emergency department from nursing facility due to multiple falls.In the ED, he was found to have fever, tachycardia tachypnea. Blood workup showed no leukocytosis or band. Lactic acid initially was 2.5 but normalized. Creatinine was 2.06. Troponin elevated x2. BNP isViral testing for influenza A. Urinalysis showed no evidence of urinary tract infection. Head CT scan showed no acute intracranial abnormalities, however it showed changes of acute on chronic sinusitis. CXR showed mid left lower lobe consolidated and/or atelectasis. In the ED tx given included Ibuprofen 400 mg p.o., Tamiflu 75 mg p.o., azithromycin 500 mg IV, acetaminophen 972 mg p.o., ceftriaxone 1 g IV, NS 2 L bolus.Nephrology was consulted to assist in his clinical management of his ENEDELIA Review of Systems Review of Systems Yes Unobtainable due to mental condition [facility]LY [facility] Past Medical History Medical History (Updated 06/14/23 @ 17:44 by Lesley Mondragon RN) GERD (gastroesophageal reflux disease) Hypercholesteremia Hypertension Social History Social History Household Members: None Household Members Other:: Pt from [facility] Housing: Longterm Do you presently have visiting nurse or other home services: No Patient Tobacco Use Status: Never used Tobacco Advance Directives Date on File: 06/14/23 service: No Meds Allergies Allergy/AdvReac Type Severity Reaction Status Date / Time atorvastatin Allergy Unknown itching Verified 11/20/19 00:00 Active Medications: Current Medications Acetaminophen (Acetaminophen 325 Mg Tablet) 975 mg PO Q6H PRN PRN Reason: fever and pain Albuterol/Ipratropium (Albuterol/Iprat 2.5/0.5mg 3 Ml Ampul.Neb) 3 ml INHALE RQ4H WHILE AWAKE [facility] Last Admin: 06/14/23 19:06 Dose: 3 ml Albuterol/Ipratropium (Albuterol/Iprat 2.5/0.5mg 3 Ml Ampul.Neb) 3 ml INHALE Q3H PRN PRN Reason: sob Amlodipine Besylate (Amlodipine Besylate 5 Mg Tablet) 5 mg PO DAILY [facility]; Protocol Atorvastatin Calcium (Atorvastatin Calcium 80 Mg Tablet) 80 mg PO BEDTIME [facility] Last Admin: 06/14/23 19:49 Dose: 80 mg Calcium Carbonate (Calcium Carbonate 500 Mg Tablet) 500 mg PO DAILY [facility] Last Admin: 06/14/23 16:28 Dose: 500 mg Guaifenesin (Guaifenesin 100 Mg/5 Ml Liquid) 5 ml PO Q4H PRN PRN Reason: Cough Heparin Sodium (Porcine) (Heparin Sodium,Porcine 5,000 Unit/Ml Vial) 5,000 unit SUBCUT Q12H [facility] Last Admin: 06/14/23 19:50 Dose: 5,000 unit Ceftriaxone Sodium 1 gm/ (Sodium Chloride) 50 mls @ 100 mls/hr IV DAILY [facility] Last Infusion: 06/14/23 10:26 Dose: Infused Azithromycin 500 mg/ Sodium (Chloride) 250 mls @ 125 mls/hr IV DAILY [facility] Last Infusion: 06/14/23 12:35 Dose: Infused Vancomycin HCl 1,250 mg/ (Sodium Chloride) 250 mls @ 166.667 mls/hr IV Q24H [facility] Methylprednisolone Sodium Succinate (Methylprednisolone Sod Succ 40 Mg/Ml Vial) 40 mg IVPUSH Q12H [facility] Last Admin: 06/14/23 17:06 Dose: 40 mg Omeprazole (Omeprazole 20 Mg Capsule.Dr) 20 mg PO DAILY@0630 [facility] Oseltamivir Phosphate (Oseltamivir Phosphate 30 Mg Capsule) 30 mg PO BID [facility] Last Admin: 06/14/23 19:49 Dose: 30 mg Pantoprazole Sodium (Pantoprazole Sodium 40 Mg/10 Ml Vial) 40 mg IVPUSH DAILY [facility] Last Admin: 06/14/23 09:21 Dose: 40 mg Pharmacy Consult (Consult Rx Vancomycin Dosing) 1 each MISCELLANE DAILY PRN PRN Reason: Consult order Sodium Bicarbonate (Sodium Bicarbonate 650 Mg Tablet) 650 mg PO BID [facility] Last Admin: 06/14/23 19:49 Dose: 650 mg Sodium Chloride (0.9 % Sodium Chloride Flush 3 Ml Syringe) 3 ml IVFLUSH QSHIFT [facility] Last Admin: 06/14/23 19:50 Dose: 3 ml Home Medications Medication Instructions Recorded Confirmed Last Taken Type amlodipine 5 mg tablet 5 mg PO DAILY 06/14/23 06/14/23 06/12/23 History lisinopril 30 mg tablet 30 mg PO DAILY 0206/14/23 06/12/23 History pantoprazole 20 mg tablet,delayed 20 mg PO DAILY 06/14/23 06/14/23 06/12/23 History release rosuvastatin 20 mg tablet 20 mg PO BEDTIME 06/14/23 06/14/23 06/12/23 History tramadol 50 mg tablet 50 mg PO Q6H PRN Pain 06/14/23 06/14/23 Unknown History Physical Exam Vital Signs: Last Vital Signs Temp 99.5 F 06/14/23 19:27 Pulse 89 06/14/23 19:27 Resp 22 H 06/14/23 19:27 BP 156/86 H 06/14/23 19:27 Pulse Ox 96 06/14/23 19:27 O2 Del Method Nasal Cannula 06/14/23 19:27 O2 Flow Rate 2 06/14/23 19:27 BMI result Body Mass Index 30.4 Const General: comfortable and no acute distress HEENT Head: Yes normocephalic Mouth: Normal oral and palatal mucosa present Eyes EOM: EOMs intact bilaterally Neck Neck: Yes supple Resp Auscultation: rhonchi Cardio Jugular venous distension: no JVD Rate: regular rate GI Palpation (GI): Soft to palpation Auscultation: normal bowel sounds General: Yes no CVA tenderness Back/Spine/Pelvis Back: no CVA tenderness Skin General skin exam: no rashes or lesions noted Neuro General: moves all extremities Extrem General: Yes no pedal edema Results Lab Results 06/14/23 04:23 06/14/23 04:23 Lab results: Chemistry 06/13/23 06/14/23 20:26 04:23 Sodium 140 142 Potassium 3.9 3.0 L D Carbon Dioxide 22 15 L BUN 53 H 40 H Creatinine 2.06 H 1.61 H Calcium 8.7 6.6 L D Hematology 06/13/23 06/14/23 20:26 04:23 WBC 5.7 2.3 L Hgb 13.7 L 10.6 L D Plt Count 169 104 L D Urinalysis 06/14/23 01:13 Urine Color Yellow Urine Appearance Cloudy Urine pH 5.5 Ur Specific Marion 1.020 Urine Protein 100 (2+) H Urine Glucose (UA) Negative Urine Ketones Trace Urine Blood Large (3+) H Urine Nitrite Negative Ur Leukocyte Esterase Negative Urine RBC 0-2 Urine WBC 0-5 Ur Squamous Epith Cells 0-2 Hyaline Casts 0-2 Assessment and Plan (1) ENEDELIA (acute kidney injury): Status: Acute Plan ENEDELIA due to compromised renal perfusion with resultant tubular injury Had altered autoregulation of the kidney given he was on ACEI ACEI on hold; No NSAID's. UO good; No reason to suspect obstructive uropathy/GN/AIN C/W current supportive care for now. No indication for HD; Labs AM; Shall closely F/U Procedures Date of Service Date of Service: 06/14/23
[2023-06-15] VITALS (13 sets, daily range): BP systolic 116–179; BP diastolic 64–99; PULSE 74–140; RESP 19–28; TEMP 36.4–37.6; O2SAT 90–95
--- NOTE | 2023-06-15 03:50 | HO.SKINPHOTO ---
Location: Coccyx Category: MASD Stage: Length: Width: Depth: cm
[2023-06-15] MEDS: Omeprazole 20 MG CAPSULE.DR PO (04:29)
[2023-06-15] MEDS: guaiFENesin 100 MG/5 ML LIQUID PO (04:29)
[2023-06-15] MEDS: methylPREDNISolone Sod Succ 40 MG/ML VIAL IVPUSH ×2 (04:30→15:47)
[2023-06-15] MEDS: vancomycin HCL 1,250 MG in 0.9 % Sodium Chloride 250 ML 166.67 MG IV (06:09)
[2023-06-15 06:39] LABS: Creatinine Clr Calc Pharmacy 53.2; Estimated Glomerular Filt Rate 57
[2023-06-15 06:48] LABS: Parathyroid Hormone Intact 107.5 pg/mL (8.7-77.1)
--- NOTE | 2023-06-15 07:00 | CA_ITS ---
Transthoracic Echocardiogram Patient (Last, First, Middle): Thierno Maki J Gender: Male Date of : 1945 Age: 77 Procedure Date: 06/15/2023 Procedure Type: Transthoracic Echocardiogram [place] [facility] [place]: 170.18 cm Weight: 88. kg BSA: 2.00 m2 Heart Rate: bpm BP: 179 / 86 mmHg Dry Pan Feeder: KANDICE Referring MD: Pavel Caceres MD Flight Operations Coordinator: Sky Dennis MD Symptoms: eleavted trop/sob Study Quality: Technically Difficult ECG Rhythm: Sinus tachycardia with extra systoles Conclusions: - 1. Technically limited study despite use of contrast agent 2. Normal LV ejection fraction of 55-60% with impaired relaxation filling pattern 3. Mildly dilated left atrium 4. Poorly visualized cardiac valves with moderate mitral calcification with cardiac valvular Dopplers within normal limits 5. Normal RV systolic pressure Findings Left Ventricle The left ventricle was not well visualized. The visually estimated ejection fraction is between 55-60%. Spectral Doppler is indicative of an impaired relaxation filling pattern. E/E prime ratio is between 8 and 15 consistent with indeterminate filling pressures. Right Ventricle Normal right ventricular cavity size and systolic function. Atria The left atrium is mildly dilated. Interatrial shunt cannot be excluded. The right atrium was not well visualized. Aortic Valve The aortic valve was not well visualized. There is no aortic valve stenosis. There is no aortic valve regurgitation. Mitral Valve The mitral valve was not well visualized. There is moderate mitral annular calcification. There is trace mitral valve regurgitation. There is no mitral valve stenosis. Pulmonic Valve The pulmonic valve was not well visualized. Tricuspid Valve Likely normal tricuspid valve structure and function. There is trace tricuspid valve regurgitation. The right ventricular systolic pressure is normal. The right ventricular systolic pressure is 21 mmHg. Normal right atrial pressure. There is no evidence of pulmonary hypertension. Great Vessels The aorta was not well visualized. The pulmonary artery was not well visualized. Venous The inferior vena cava is mildly dilated and collapses greater than 50% with inspiration. Pericardium/Pleural The pericardium was not well visualized. Prior Study Comparison No prior study available for comparison. Measurements 2D Linear Measurements IVSd: 1.09 0.6-0.9/0.6-1.0 cm LVIDd: 5.23 3.9-5.3/4.2-5.9 cm LVIDd Index: 2.62 2.4-3.2/2.2-3.1 cm/m2 LVIDs: 4.05 2.0-3.6 cm LVPWd: 0.92 0.7-1.1 cm LA Diam: 4.20 2.7-3.8/3.0-4.0 cm LAIDs Index: 2.10 1.5-2.3 cm/m2 LV Mass: 245.58 67-162/88-224 g LV Mass Index: 122.79 43-95/49-115 g/m2 LVOT Diam: 2.10 3.0+(-)1.3 cm 2D Systolic Function EF 4C: 55.30 >55% EF 2C: 55.30 >55% EF BiP: 56.90 >55% Mitral Valve MV Pk E: 1.07 MV PK A: 1.19 MV Decel Time: 150.00 E/A: 0.90 E'Lateral: 10.20 E'Medial: 8.59 E/E' Med: 12.50 E/E' Lat: 10.50 PHT: 44.00 MVA PHT: 5.00 Decel Morrill: 7.16 Aortic Valve AoV Pk Nate: 1.64 AoV Mn Nate: 1.07 AoV VTI: 0.28 AoV Pk Grad: 11.00 Aov Mn Grad: 5.00 LUCIO Cont.VTI: 2.61 LVOT LVOT Pk Nate: 1.26 LVOT Mn Nate: 0.81 LVOT VTI: 0.21 LVOT Pk Grad: 6.00 LVOT Mn Grad: 3.00 LVOT Diam: 2.10 LVOT Area: 3.46 Diastolic Function MV Pk E: 1.07 MV Pk A: 1.19 E/A: 0.90 E'Medial: 8.59 E/E' Med: 12.50 E' Laterial: 10.20 E/E' Lat: 10.50 Right Ventricle TAPSE (mm): 27.50 TVS' Nate: 17.20 Tricuspid Valve TR Pk Nate: 1.83 TR Pk Grad: 13.00 RA Press: 8.00 RVSP: 21.00 Great Vessels Aorta Sinus of Valsalva: 3.59 2.0-3.[address] Ridge: 2.55 1.7-3.4 cm Ao Asc: 3.30 2.1-3.4 cm Updated in Other Vendor System with Status of Final Sky Dennis MD electronically signed on 06/16/2023 11:18:44 AM with status of Final
[2023-06-15] MEDS: Pantoprazole Sodium 40 MG/10 ML VIAL IVPUSH (08:11)
[2023-06-15] MEDS: Sodium Bicarbonate 650 MG TABLET PO ×2 (08:12→20:02)
[2023-06-15] MEDS: amLODIPine Besylate 5 MG TABLET PO (08:12)
[2023-06-15] MEDS: Heparin Sodium,Porcine 5,000 UNIT/ML VIAL 5000 UNIT SUBCUT ×2 (08:12→20:03)
[2023-06-15] MEDS: Oseltamivir Phosphate 30 MG CAPSULE PO ×2 (08:12→20:02)
[2023-06-15] MEDS: cefTRIAXone sodium 1 GM in 0.9 % Sodium Chloride 50 ML IV (08:17)
[2023-06-15] MEDS: 0.9 % Sodium Chloride Flush 3 ML SYRINGE IVFLUSH ×3 (08:23→20:03)
[2023-06-15] MEDS: Azithromycin 500 MG in 0.9 % Sodium Chloride 250 ML 250 MG IV (08:23)
[2023-06-15] MEDS: Albuterol/Iprat 2.5/0.5MG 3 ML AMPUL.NEB INHALE ×3 (08:28→16:04)
[2023-06-15 09:50] LABS: Hematocrit 34.4 % (42.0-52.0); Mean Corpuscular HGB Conc 34.9 g/dl (31.0-36.0); Mean Corpuscular Hemoglobin 29.4 pg (27.0-33.0); Mean Corpuscular Volume 84.3 fL (80.0-98.0); Mean Platelet Volume 10.2 fL (9.4-12.4); Platelet Count 115 X10*3/uL (160-400); Red Blood Count 4.08 X10*6/uL (4.60-5.80); Red Cell Distribution Width 15.2 % (11.0-16.0); White Blood Count 12.6 X10*3/uL (4.8-10.8)
[2023-06-15 10:09] LABS: Anion Gap 15 (12-20); Blood Urea Nitrogen 25 mg/dL (9-16); Calcium 7.7 mg/dL (8.4-10.2); Carbon Dioxide 15 mmol/L (22-29); Chloride 114 mmol/L (96-108); Creatinine Clr Calc Pharmacy 54.6; Estimated Glomerular Filt Rate 59; Glucose Random 174 mg/dL (60-115); Potassium 3.1 mmol/L (3.3-5.1); Sodium 141 mmol/L (135-145)
[2023-06-15] MEDS: Potassium Chloride Packet 20 MEQ PACKET 40 MEQ PO (11:46)
[2023-06-15 12:41] LABS: Anion Gap 15 (12-20)
[2023-06-15 12:45] LABS: Blood Urea Nitrogen 25 mg/dL (9-16); Calcium 7.6 mg/dL (8.4-10.2); Carbon Dioxide 16 mmol/L (22-29); Chloride 113 mmol/L (96-108); Glucose Random 150 mg/dL (60-115); Magnesium 2.1 mg/dL (1.6-2.6); Potassium 3.4 mmol/L (3.3-5.1); Sodium 141 mmol/L (135-145)
--- NOTE | 2023-06-15 14:13 | HO.PM.IMPN ---
Subjective Subjective Date of Service: 06/15/23 Interval History: hypoxia ,sob Review of Systems sob somewhat improving but sob with minimum excersion. has dry cough no fever Physical Exam Vital Signs: Vital Signs: Last Vital Signs Temp 97.8 F 06/15/23 11:13 Pulse 91 06/15/23 12:10 Resp 24 H 06/15/23 12:10 BP 140/72 H 06/15/23 11:13 Pulse Ox 93 06/15/23 11:13 O2 Del Method Nasal Cannula 06/15/23 11:13 O2 Flow Rate 2 06/15/23 11:13 BMI result Body Mass Index 30.4 Appearance: Alert.? Oriented .? cvs: rrr, [id number] . res: air entry diminshed ,few rhonchii b/l, no rales abd: no rebound or guarding ,nt, bs present. ext pulses present , no cyanosis . neuro: nonfocal. Objective Data Active Medications Acetaminophen (Acetaminophen 325 Mg Tablet) 975 mg PO Q6H PRN PRN Reason: fever and pain Albuterol/Ipratropium (Albuterol/Iprat 2.5/0.5mg 3 Ml Ampul.Neb) 3 ml INHALE RQ4H WHILE AWAKE [facility] Last Admin: 06/15/23 12:07 Dose: 3 ml Documented By: [facility] Albuterol/Ipratropium (Albuterol/Iprat 2.5/0.5mg 3 Ml Ampul.Neb) 3 ml INHALE Q3H PRN PRN Reason: sob Amlodipine Besylate (Amlodipine Besylate 5 Mg Tablet) 5 mg PO DAILY [facility]; Protocol Last Admin: 06/15/23 08:12 Dose: 5 mg Documented By: FERNY Atorvastatin Calcium (Atorvastatin Calcium 80 Mg Tablet) 80 mg PO BEDTIME [facility] Last Admin: 06/14/23 19:49 Dose: 80 mg Documented By: BLUE Calcium Carbonate (Calcium Carbonate 500 Mg Tablet) 500 mg PO DAILY [facility] Last Admin: 06/15/23 08:12 Dose: 500 mg Documented By: FERNY Guaifenesin (Guaifenesin 100 Mg/5 Ml Liquid) 5 ml PO Q4H PRN PRN Reason: Cough Last Admin: 06/15/23 04:29 Dose: 5 ml Documented By: BLUE Heparin Sodium (Porcine) (Heparin Sodium,Porcine 5,000 Unit/Ml Vial) 5,000 unit SUBCUT Q12H [facility] Last Admin: 06/15/23 08:12 Dose: 5,000 unit Documented By: FERNY Ceftriaxone Sodium 1 gm/ (Sodium Chloride) 50 mls @ 100 mls/hr IV DAILY [facility] Last Infusion: 06/15/23 09:00 Dose: Infused Documented By: FERNY Azithromycin 500 mg/ Sodium (Chloride) 250 mls @ 125 mls/hr IV DAILY [facility] Last Infusion: 06/15/23 09:30 Dose: Infused Documented By: FERNY Vancomycin HCl 1,250 mg/ (Sodium Chloride) 250 mls @ 166.667 mls/hr IV Q24H [facility] Last Infusion: 06/15/23 07:45 Dose: Infused Documented By: FERNY Methylprednisolone Sodium Succinate (Methylprednisolone Sod Succ 40 Mg/Ml Vial) 40 mg IVPUSH Q12H [facility] Last Admin: 06/15/23 04:30 Dose: 40 mg Documented By: BLUE Omeprazole (Omeprazole 20 Mg Capsule.) 20 mg PO DAILY@0630 [facility] Last Admin: 06/15/23 04:29 Dose: 20 mg Documented By: BLUE Oseltamivir Phosphate (Oseltamivir Phosphate 30 Mg Capsule) 30 mg PO BID [facility] Last Admin: 06/15/23 08:12 Dose: 30 mg Documented By: FERNY Pantoprazole Sodium (Pantoprazole Sodium 40 Mg/10 Ml Vial) 40 mg IVPUSH DAILY [facility] Last Admin: 06/15/23 08:11 Dose: 40 mg Documented By: FERNY Pharmacy Consult (Consult Rx Vancomycin Dosing) 1 each MISCELLANE DAILY PRN PRN Reason: Consult order Sodium Bicarbonate (Sodium Bicarbonate 650 Mg Tablet) 650 mg PO BID [facility] Last Admin: 06/15/23 08:12 Dose: 650 mg Documented By: FERNY Sodium Chloride (0.9 % Sodium Chloride Flush 3 Ml Syringe) 3 ml IVFLUSH QSHIFT [facility] Last Admin: 06/15/23 08:23 Dose: 3 ml Documented By: FERNY Labs 06/15/23 09:35 06/15/23 09:35 Labs: Laboratory Results - last 24 hr 06/15/23 06/15/23 05:41 09:35 MCV 84.3 MCH 29.4 MCHC 34.9 RDW 15.2 Plt Count 115 L MPV 10.2 Absolute Nucleated RBC 0.000 Nucleated RBC % (auto) 0.0 Hold Purple Top SEE NOTE Anion Gap 15 15 Estim Creat Clear Calc 53.2 54.6 Estimated GFR 57 59 Random Glucose 150 H 174 H Calcium 7.6 L D 7.7 L Magnesium 2.1 PTH Intact 107.5 H Microbiology Microbiology Results: Microbiology 06/13/23 20:26 Blood Culture - Preliminary Blood - Venous No growth after 24 hours. 06/13/23 20:26 Blood Culture - Preliminary Blood - Venous No growth after 24 hours. Assessment and Plan (1) ENEDELIA (acute kidney injury): Status: Acute (2) Acute hypoxic respiratory failure: Status: Acute Assessment and Plan: 77 years old man admitted with: Acute hypoxic respiratory failure possible secondary to pneumonia due to influenza + likely superimposed bacterial infection. moniter Pulse oximetry. Continue supplemental oxygen to keep oxygen saturation > 90%. has intermittent fevers ,blood cultures pending bnp normal. continue IV antibiotic therapy with azithromycin and ceftriaxone and vanco intiated on 06/14,Tamiflu X 5 days, bronchodilator therapy,iv solumedrole. moniter vanco trough ,renal function/electrolytes Severe sepsis secondary to above. acute Lactic acidosis resolved with ivf. Continue empiric IV antibiotic therapy ,Blood cultures pending. Renal failure (no previous history of renal failure or baseline creatinine found) and acute lactic acidosis. resolved with IV fluids. Avoid nephrotoxic agents. hypokalemia/hypomagnesemia /hypocalcemia : on ivf with potassium. Hypomagnesemia repletions ordered, as well as hypocalcemia mild(around 7.4)when corrected for albumin: seems improving with replacements ,calcium carbonate. Elevated troponin-flat,thought to be Likely demand ischemia due to tachycardia. added echo. DVT prophylaxis: Heparin subcut acute hypoxic respiratory failure possible secondary to pneumonia , ENEDELIA, multiple electrolytic abnormalities: Patient need broad-spectrum IV antibiotics, renal function electrolyte monitoring as well as patient is currently oxygen dependent due to acute hypoxemic respiratory failure-in my opinion patient would benefit from 48-72 hours of hospital stay. Quality Stroke Does the patient have a stroke diagnosis?: No VTE Prior VTE?: No VTE Risk Level:: Medical - moderate - high VTE Device Contraindication: Treatment Not Indicated VTE Drug Contraindication: N/A - Med Ordered
--- NOTE | 2023-06-15 14:39 | MHC.CM.PN ---
CM called [facility], spoke to nurse there, Tiff, . She would like to be called when pt. is ready for DC, and to have him sent home via ambulance. CM to follow and assist as needed with DC plan.
--- NOTE | 2023-06-15 15:33 | P.CDIM_ITS ---
PROVIDER RESPONSE TEXT: To clarify, the appropriate diagnosis supported by the clinical indicators: Acute QUERY TEXT: PHYSICIAN'S DOCUMENTATION REQUEST Date of Query: 06/15/2023 08:00 AM EST Patient Name: Thierno Maki Admit Date: 06/14/2023 Dear Pavel Caceres, A review of the medical record indicates additional documentation may be needed. Please review below and update the documentation accordingly. Clinical Indicators: H&P: Lactic acidosis resolved with IVF LA 2.5 Clarify which of the following accurately represents the acuity of the lactic acidosis: Possible options might include: Acute Acute on chronic Other (explain) Clinically unable to determine (explain) Thank you, Sheree Mohamud, CCS, CDIS Use of terms such as suspected, likely, concern for, or probable (associated with a specific diagnosi s that is being evaluated, monitored, or treated as if it exists) are acceptable and can be coded in the inpatient se tting, when documented at the time of discharge. Please use your independent medical judgment in providing your response. THIS QUERY IS PART OF THE PERMANENT MEDICAL RECORD
[2023-06-15] MEDS: guaiFEN/Codeine SF 200/20/10ML 10 ML LIQUID 5 ML PO ×2 (15:47→20:03)
[2023-06-15 16:07] LABS: Vitamin D 25-OH Total 20.2 ng/mL (>30)
[2023-06-15 17:11] LABS: VBG Base Excess -7.5 mmol/L; VBG HCO3 15 mmol/L (22-26); VBG pCO2 24 mmHg; VBG pH 7.39 (7.32-7.43); VBG pO2 81 mmHg
[2023-06-15 17:15] LABS: Potassium 3.5 mmol/L (3.3-5.1)
[2023-06-15 17:22] LABS: Venous Blood Gas Refer to POC result
[2023-06-15] MEDS: Albuterol Sulfate 7.5 MG, Albuterol Sulfate (0.083%) 2.5 MG 10 MG INHALE (18:07)
[2023-06-15] MEDS: Potassium Chloride Packet 20 MEQ PACKET PO (18:31)
[2023-06-15] MEDS: Magnesium Sulfate/D5W 1 GM/100 ML PIGGYBACK IV (18:37)
[2023-06-15] MEDS: amLODIPine Besylate 2.5 MG TABLET PO (18:47)
--- NOTE | 2023-06-15 18:50 | PC.NURSE ---
Pt with frequent episodes of PAC's and SVT in afternoon, Dr Morris elliott will continue to monitor. Increased work of breathing and cough remains on 2L oxygen satting mid 90's updrafts via RT. Chest xray completed, po potassium and IV magnesium given per order. Continues with episodes of incontinent watery green stool Dr Caceres aware. Will continue to monitor and report changes
[2023-06-15] MEDS: Atorvastatin Calcium 80 MG TABLET PO (20:02)
[2023-06-16] VITALS (23 sets, daily range): BP systolic 139–185; BP diastolic 78–97; PULSE 82–137; RESP 18–38; TEMP 35.9–37.1; O2SAT 89–97
--- NOTE | 2023-06-16 | ECG_ITS ---
Test Reason : tachycardia Blood Pressure : / mmHG Vent. Rate : 140 BPM Atrial Rate : 000 BPM P-R Int : 000 ms QRS Dur : 088 ms QT Int : 330 ms P-R-T Axes : 000 054 -12 degrees QTc Int : 503 ms Atrial fibrillation with rapid ventricular response with premature ventricular or aberrantly conducted complexes Abnormal QRS-T angle, consider primary T wave abnormality Abnormal ECG When compared with ECG of 13-JUN-2023 20:30, Atrial fibrillation has replaced Sinus rhythm Referred By: Luz Downs Electronically Signed By:SERENE PHAM MD
[2023-06-16] MEDS: Albuterol/Iprat 2.5/0.5MG 3 ML AMPUL.NEB INHALE ×7 (00:54→19:56)
[2023-06-16] MEDS: methylPREDNISolone Sod Succ 125 MG/2 ML VIAL IVPUSH (03:16)
[2023-06-16] MEDS: Morphine Sulfate 2 MG/ML CARTRIDGE IVPUSH (03:24)
[2023-06-16 03:46] LABS: ABG Base Excess -6.8 mmol/L; ABG HCO3 16 mmol/L (22-26); ABG pCO2 28 mmHg (32-45); ABG pH 7.37 (7.35-7.45); ABG pO2 72 mmHg (83-108)
--- NOTE | 2023-06-16 03:59 | P.PNCC_ITS ---
Critical Care Event Note Summary Date of Service: 06/16/23 Code activated: No Narrative: This case had a high probability of a clinically significant, sudden, or life threatening deterioration of this patient's condition which required my full and direct attention, intervention and personal management. Critical Care Time (minutes): 20 Comment: 0330 am I was kindly asked to see the patient for there was an RN concern about the patient Deteriorating quickly due to significant broncho spasticity and wheezing. Patient who was admitted with influenza a and a secondary viral pneumonia, has been receiving Tamiflu, small dose of steroids and nebulizers, who I saw yesterday in a brief manner during admission. Today he appears more perked up, unfortunately nursing did not know his base line, unlike yesterday, he appears much better. his vital signs are all stable with the exception of some tachypnea at 28-30 breaths per minute, he does have very minimal usage of his accessory muscles but otherwise has significant broncho spasticity and expiratory wheezing on exam. There is no crackles or rhonchi. He does not show any cyanosis and no significant signs of distress, if anything the patient ask why are you also worried about me, I feel much better , clinically the patient does look better. To avoid future respiratory distress as he may tire out eventually breathing so quickly, I had kindly asked to give him Dilaudid p.r.n. work of breathing, change his Solu-Medrol to q.6 hours, change his DuoNebs to schedule every 4 hours and albuterol every 2 hours p.r.n. wheezing. ABG was done and this shows some hypoxia but otherwise no respiratory acidosis. as above-mentioned to avoid tiredness and due to the hypoxia, tachypnea I will order high-flow O2. He does not have a history of COPD, emphysema, he has not a chronic asthmatic therefore this is more than adequate as he is satting 90-92% on 2 L nasal cannula and his gas does show some level of hypoxia. There is no hypercarbia. Clinically speaking, I do not believe the patient needs any further escalation of care, he does not need to come to the ICU, he seems stable, nursing personnel was reassured, all of the above was communicated to the internal medicine physician Dr. Martinez; we will be happy to follow along in an as-needed basis. 0435 am Patient was seen again after all the above was done, he looks co mfortable, his rhonchus spasticity has improved and he has not as wheezy anymore. There is no evidence of respiratory distress and no accessory muscle usage. Case discussed with Dr. Olson Critical care time used for critical evaluation of this patient, diagnosis, treatment and coordination of care, review her records and documentation TOTAL CRITICAL CARE TIME 20 MIN . discussion and coordination with consultants, completely separate from any procedures performed.
[2023-06-16] MEDS: HYDROmorphone HCl 0.5 MG/0.5 ML SYRINGE IVPUSH ×2 (04:08→16:48)
[2023-06-16 04:20] LABS: ABG Refer to POC result
[2023-06-16] MEDS: Acetaminophen 325 MG TABLET 975 MG PO (04:49)
[2023-06-16] MEDS: Omeprazole 20 MG CAPSULE.DR PO (05:55)
[2023-06-16] MEDS: methylPREDNISolone Sod Succ 40 MG/ML VIAL IVPUSH ×3 (05:55→16:43)
--- NOTE | 2023-06-16 06:26 | PC.NURSE ---
Assumed care of the patient at 19:00 in the evening. Patient seen on s4 med-tele for AHRF 2/2 pna and +Flu; continues on droplet precautions. Patient was on 2L nc on assuming care with some mild increased work of breathing as per received nursing report though no retractions or distress was noted on writer producer's evening assessment; breathing was even and unlabored, patient denied sob. Pt continued on 2L nc with continuous monitoring to maintain spo2 >90% per MD order. Early this morning however the pt developed further increased work of breathing as evidenced by abdominal breathing, new accessory muscle use and intercostal retractions with RR reaching upper 30's and worsened audible forced wheezing. This was despite pt having received a recent duoneb given by respiratory. Pt denied sob but was resistive to boosting and repositioning in the bed (pt was in a low, hunched position); education was provided, patient was eventually agreeable with assistance from nursing cost control supervisor at bedside for RN concerns. Mentation maintained. Full set of vitals was obtained and covering Dr. Juan Downs who was covering and familiar with the patient was notified of these assessment changes and requested and presented to bedside. Nursing cost control supervisor and respiratory already present at bedside. MD orders for solumedrol 125mg IVP and 2mg IVP morphine for work of breathing. ICU Dr. Vanessa De La O who this patient is also known to presented to pt's bedside. As pt remained tachypneic after morphine, 0.5mg IVP dilaudid with also given per Dr. De La O; cxr was deferred, ABG was obtained, solumedrol frequency was increased from q12h to q6h, and duoneb frequency both scheduled and prn were increased. In addition, patient was placed on HFNC to prevent tiring, per Dr. De La O. +Effect with these interventions, RR improved to low 20's, still with audible wheeze though reduction in retraction and abdominal breathing. Pt continues to deny sob. Please see shift assessments, vitals, and MAR for full details. Handoff report given 06:45.
[2023-06-16 07:27] LABS: Anion Gap 16 (12-20); Blood Urea Nitrogen 26 mg/dL (9-16); Carbon Dioxide 17 mmol/L (22-29); Chloride 113 mmol/L (96-108); Creatinine Clr Calc Pharmacy 55.5; Estimated Glomerular Filt Rate 60; Glucose Random 186 mg/dL (60-115); Magnesium 2.6 mg/dL (1.6-2.6); Potassium 3.7 mmol/L (3.3-5.1); Sodium 142 mmol/L (135-145)
[2023-06-16] MEDS: Sodium Bicarbonate 650 MG TABLET PO ×4 (08:09→21:31)
[2023-06-16] MEDS: amLODIPine Besylate 5 MG TABLET PO (08:09)
[2023-06-16] MEDS: Pantoprazole Sodium 40 MG/10 ML VIAL IVPUSH (08:09)
[2023-06-16] MEDS: Heparin Sodium,Porcine 5,000 UNIT/ML VIAL 5000 UNIT SUBCUT ×2 (08:09→21:32)
[2023-06-16] MEDS: Oseltamivir Phosphate 30 MG CAPSULE PO ×2 (08:09→21:31)
[2023-06-16] MEDS: 0.9 % Sodium Chloride Flush 3 ML SYRINGE IVFLUSH ×2 (08:10→16:44)
[2023-06-16] MEDS: cefTRIAXone sodium 1 GM in 0.9 % Sodium Chloride 50 ML IV (08:10)
[2023-06-16] MEDS: vancomycin HCL 1,250 MG in 0.9 % Sodium Chloride 250 ML 166 MG IV (08:10)
[2023-06-16] MEDS: Azithromycin 500 MG in 0.9 % Sodium Chloride 250 ML 250 MG IV (08:11)
--- NOTE | 2023-06-16 09:27 | P.CONPL_ITS ---
History of Present Illness History of Present Illness Consult date: 06/16/23 Chief complaint: Hypoxic Respiratory Failure Narrative: This is an inpatient pulmonary consultation. The patient is a 77 years old man who was brought to the emergency department from nursing facility due to multiple falls. He is a poor historian. In the ED, he was found to have fever, tachycardia tachypnea. Blood workup showed no leukocytosis or band. Lactic acid initially was 2.5 but normalized. Creatinine is 2.06. Troponin elevated x2. BNP is normal. Viral testing for influenza A+. His chest x-ray personally by me initially demonstrating a left lower lobe and mid pneumonia. He was started antibiotics in addition to Tamiflu. He was placed on oxygen. While in the hospital he developed significant shortness of breath hypoxia and required high-flow. He had a repeat chest x-ray which also reviewed demonstrating fluffy opacities bilaterally left more than right. Consistent with pneumonia and ARDS due to the flu. He is already on Solu-Medrol in addition to that he is on ceftriaxone and vancomycin. Patient has been on the high-flow. He is starting to feel little better. Review of Systems 2 Constitutional: Constitutional: Reports fatigue and Denies fever(s) Eyes: Eyes: Reports no additional eye complaints Cardiovascular: Cardiovascular: Denies chest pain and Reports dyspnea Respiratory: Respiratory: Reports cough, Reports dyspnea and Reports wheezing Gastrointestinal: Gastrointestinal: Reports no additional gastrointestinal complaints Musculoskeletal: Musculoskeletal: Reports abnormal gait and Reports myalgias Neurologic: Reports abnormal gait Endocrine: Endocrine: Reports fatigue Hematologic/Lymphatic: Hematologic/Lymphatic: Denies easy bleeding Allergic/Immunologic: Allergic/Immunologic: Reports wheezing [facility] Past Medical History Medical History (Updated 06/16/23 @ 09:31 by Amadeo Pedraza MD) GERD (gastroesophageal reflux disease) Hypercholesteremia Hypertension Social History Social History Household Members: None Household Members Other:: Pt from [facility] Housing: [facility] Do you presently have visiting nurse or other home services: No Patient Tobacco Use Status: Never used Tobacco Advance Directives Date on File: 06/14/23 service: No Meds Allergies Allergy/AdvReac Type Severity Reaction Status Date / Time atorvastatin Allergy Unknown itching Verified 11/20/19 00:00 Active Medications: Current Medications Acetaminophen (Acetaminophen 325 Mg Tablet) 975 mg PO Q6H PRN PRN Reason: fever and pain Last Admin: 06/16/23 04:49 Dose: 975 mg Albuterol/Ipratropium (Albuterol/Iprat 2.5/0.5mg 3 Ml Ampul.Neb) 3 ml INHALE Q4H [facility] Last Admin: 06/16/23 08:33 Dose: 3 ml Albuterol/Ipratropium (Albuterol/Iprat 2.5/0.5mg 3 Ml Ampul.Neb) 3 ml INHALE Q2H PRN PRN Reason: sob Amlodipine Besylate (Amlodipine Besylate 5 Mg Tablet) 5 mg PO DAILY [facility]; Protocol Last Admin: 06/16/23 08:09 Dose: 5 mg Atorvastatin Calcium (Atorvastatin Calcium 80 Mg Tablet) 80 mg PO BEDTIME [facility] Last Admin: 06/15/23 20:02 Dose: 80 mg Calcium Carbonate (Calcium Carbonate 500 Mg Tablet) 500 mg PO DAILY [facility] Last Admin: 06/16/23 08:09 Dose: 500 mg Guaifenesin/Codeine Phosphate (Guaifen/Codeine Sf 200/20/10ml 10 Ml Liquid) 5 ml PO Q4H PRN PRN Reason: Cough Last Admin: 06/15/23 20:03 Dose: 5 ml Heparin Sodium (Porcine) (Heparin Sodium,Porcine 5,000 Unit/Ml Vial) 5,000 unit SUBCUT Q12H [facility] Last Admin: 06/16/23 08:09 Dose: 5,000 unit Hydromorphone HCl (Hydromorphone Hcl 0.5 Mg/0.5 Ml Syringe) 0.5 mg IVPUSH Q4H PRN; Protocol PRN Reason: distress Last Admin: 06/16/23 04:08 Dose: 0.5 mg Ceftriaxone Sodium 1 gm/ (Sodium Chloride) 50 mls @ 100 mls/hr IV DAILY [facility] Last Infusion: 06/16/23 08:24 Dose: 0 mls/hr Azithromycin 500 mg/ Sodium (Chloride) 250 mls @ 125 mls/hr IV DAILY [facility] Last Infusion: 06/16/23 08:24 Dose: 0 mls/hr Vancomycin HCl 1,250 mg/ (Sodium Chloride) 250 mls @ 166.667 mls/hr IV Q24H [facility] Last Admin: 06/16/23 08:10 Dose: 166 mls/hr Methylprednisolone Sodium Succinate (Methylprednisolone Sod Succ 40 Mg/Ml Vial) 40 mg IVPUSH Q6H [facility] Last Admin: 06/16/23 05:55 Dose: 40 mg Omeprazole (Omeprazole 20 Mg Capsule.Dr) 20 mg PO DAILY@0630 [facility] Last Admin: 06/16/23 05:55 Dose: 20 mg Oseltamivir Phosphate (Oseltamivir Phosphate 30 Mg Capsule) 30 mg PO BID [facility] Last Admin: 06/16/23 08:09 Dose: 30 mg Pantoprazole Sodium (Pantoprazole Sodium 40 Mg/10 Ml Vial) 40 mg IVPUSH DAILY [facility] Last Admin: 06/16/23 08:09 Dose: 40 mg Pharmacy Consult (Consult Rx Vancomycin Dosing) 1 each MISCELLANE DAILY PRN PRN Reason: Consult order Sodium Bicarbonate (Sodium Bicarbonate 650 Mg Tablet) 650 mg PO QID [facility] Last Admin: 06/16/23 08:09 Dose: 650 mg Sodium Chloride (0.9 % Sodium Chloride Flush 3 Ml Syringe) 3 ml IVFLUSH QSHIFT [facility] Last Admin: 06/16/23 08:10 Dose: 3 ml Home Medications Medication Instructions Recorded Confirmed Last Taken Type amlodipine 5 mg tablet 5 mg PO DAILY 06/14/23 06/14/23 06/12/23 History lisinopril 30 mg tablet 30 mg PO DAILY 06/14/23 06/14/23 06/12/23 History pantoprazole 20 mg tablet,delayed 20 mg PO DAILY 06/14/23 06/14/23 06/12/23 History release rosuvastatin 20 mg tablet 20 mg PO BEDTIME 06/14/23 06/14/23 06/12/23 History tramadol 50 mg tablet 50 mg PO Q6H PRN Pain 06/14/23 06/14/23 Unknown History Physical Exam 2 Vital Signs: Vital Signs: Last Vital Signs Temp 96.8 F 06/16/23 07:53 Pulse 104 H 06/16/23 08:35 Resp 22 H 06/16/23 08:36 BP 169/89 H 06/16/23 07:53 Pulse Ox 97 06/16/23 07:53 O2 Del Method High Flow Nasal C annula 06/16/23 07:53 O2 Flow Rate 40 06/16/23 07:53 FiO2 30 06/16/23 07:53 BMI result Body Mass Index 30.4 Appearance: Alert.? Oriented .? cvs: [id number], [id number] . res: air entry diminshed ,few rhonchii b/l, no rales abd: no rebound or guarding ,nt, bs present. ext pulses present , no cyanosis . neuro: nonfocal. Results Laboratory Findings 06/15/23 09:35 06/16/23 06:20 Abnormal lab findings: Abnormal Labs 06/13/23 06/13/23 06/14/23 20:26 23:39 01:13 WBC RBC Hgb 13.7 L Hct 40.0 L Plt Count Neut % (Auto) 82.9 H Lymph % (Auto) 7.2 L Lymph # (Auto) 0.4 L Neutrophils % (Manual) Band Neutrophils % Lymphocytes % (Manual) Abs Neuts (Manual) Lymphocytes # (Manual) ABG pCO2 at Pt Temp ABG pO2 at Pt Temp ABG HCO3 VBG HCO3 Potassium Chloride Carbon Dioxide BUN 53 H Creatinine 2.06 H Random Glucose 124 H Lactic Acid 2.5 H* Calcium Magnesium AST 109 H ALT 47 H Troponin I High Sens 42.6 H 55.5 H Total Protein Albumin 25-OH Vitamin D Total PTH Intact Urine Protein 100 (2+) H Urine Blood Large (3+) H Influenza Type A (VALE) Positive A 06/14/23 06/15/23 06/15/23 04:23 05:41 09:35 WBC 2.3 L 12.6 H RBC 3.60 L D 4.08 L Hgb 10.6 L D 12.0 L Hct 31.0 L D 34.4 L Plt Count 104 L D 115 L Neut % (Auto) Lymph % (Auto) Lymph # (Auto) Neutrophils % (Manual) 31 L Band Neutrophils % 42 H Lymphocytes % (Manual) 16 L Abs Neuts (Manual) 1.7 L Lymphocytes # (Manual) 0.4 L ABG pCO2 at Pt Temp ABG pO2 at Pt Temp ABG HCO3 VBG HCO3 Potassium 3.0 L D 3.1 L Chloride 115 H 113 H 114 H Carbon Dioxide 15 L 16 L 15 L BUN 40 H 25 H 25 H Creatinine 1.61 H Random Glucose 150 H 174 H Lactic Acid Calcium 6.6 L D 7.6 L D 7.7 L Magnesium 1.5 L AST 128 H ALT 43 H Troponin I High Sens 63.8 H Total Protein 5.5 L Albumin 3.0 L 25-OH Vitamin D Total 20.2 L PTH Intact 107.5 H Urine Protein Urine Blood Influenza Type A (VALE) 06/15/23 06/16/23 06/16/23 17:02 03:38 06:20 WBC RBC Hgb Hct Plt Count Neut % (Auto) Lymph % (Auto) Lymph # (Auto) Neutrophils % (Manual) Band Neutrophils % Lymphocytes % (Manual) Abs Neuts (Manual) Lymphocytes # (Manual) ABG pCO2 at Pt Temp 28 L ABG pO2 at Pt Temp 72 L ABG HCO3 16 L VBG HCO3 15 L Potassium Chloride 113 H Carbon Dioxide 17 L BUN 26 H Creatinine Random Glucose 186 H Lactic Acid Calcium 8.0 L Magnesium AST ALT Troponin I High Sens Total Protein Albumin 25-OH Vitamin D Total PTH Intact Urine Protein Urine Blood Influenza Type A (VAEL) Microbiology: Microbiology 06/13/23 20:26 Blood - Venous Blood Culture - Preliminary No growth after 48 hours. 06/13/23 20:26 Blood - Venous Blood Culture - Preliminary No growth after 48 hours. Assessment and Plan (1) Acute hypoxic respiratory failure: Status: Acute (2) Influenza A: Status: Acute (3) Pneumonia: Qualifiers: Laterality: left Lung location: lower lobe of lung Pneumonia type: due to unspecified organism Qualified Code(s): J18.9 - Pneumonia, unspecified organism Status: Acute (4) ARDS (adult respiratory distress syndrome): Status: Acute Plan Continue Ceftriaxone/vancomycin continue Tamiflu continue solumedrol nebs continue HF Procedures Date of Service Date of Service: 06/16/23
[2023-06-16] MEDS: guaiFEN/Codeine SF 200/20/10ML 10 ML LIQUID 5 ML PO ×3 (12:11→23:06)
--- NOTE | 2023-06-16 12:15 | MHC.CM.PN ---
EMR reviewed and per MD rounds, pt is not medically cleared for D/C due to management of COPD exacerbation with pt requiring hi-flow O2. CM will continue to follow.
--- NOTE | 2023-06-16 15:31 | HO.PM.IMPN ---
Subjective Subjective Date of Service: 06/16/23 Interval History: copd excerebation Review of Systems overnight events noted , now on high flow says sob seems somewhat improving, has cough Physical Exam Vital Signs: Vital Signs: Last Vital Signs Temp 97.1 F 06/16/23 11:06 Pulse 102 H 06/16/23 11:31 Resp 24 H 06/16/23 11:32 BP 146/90 H 06/16/23 11:19 Pulse Ox 95 06/16/23 11:06 O2 Del Method High Flow Nasal C annula 06/16/23 11:06 O2 Flow Rate 40 06/16/23 11:06 FiO2 30 06/16/23 11:06 BMI result Body Mass Index 30.4 Appearance: Alert.? Oriented .? cvs: rrr, [id number] . res: air entry diminshed ,wheezing b/l, no rales abd: no rebound or guarding ,nt, bs present. ext pulses present , no cyanosis . neuro: nonfocal. Objective Data Active Medications Acetaminophen (Acetaminophen 325 Mg Tablet) 975 mg PO Q6H PRN PRN Reason: fever and pain Last Admin: 06/16/23 04:49 Dose: 975 mg Documented By: TERESA Albuterol/Ipratropium (Albuterol/Iprat 2.5/0.5mg 3 Ml Ampul.Neb) 3 ml INHALE Q4H [facility] Last Admin: 06/16/23 15:29 Dose: 3 ml Documented By: JUAN Albuterol/Ipratropium (Albuterol/Iprat 2.5/0.5mg 3 Ml Ampul.Neb) 3 ml INHALE Q2H PRN PRN Reason: sob Amlodipine Besylate (Amlodipine Besylate 5 Mg Tablet) 5 mg PO DAILY [facility]; Protocol Last Admin: 06/16/23 08:09 Dose: 5 mg Documented By: MARIA DE JESUS Atorvastatin Calcium (Atorvastatin Calcium 80 Mg Tablet) 80 mg PO BEDTIME [facility] Last Admin: 06/15/23 20:02 Dose: 80 mg Documented By: TERESA Calcium Carbonate (Calcium Carbonate 500 Mg Tablet) 500 mg PO DAILY [facility] Last Admin: 06/16/23 08:09 Dose: 500 mg Documented By: MARIA DE JESUS Guaifenesin/Codeine Phosphate (Guaifen/Codeine Sf 200/20/10ml 10 Ml Liquid) 5 ml PO Q4H PRN PRN Reason: Cough Last Admin: 06/16/23 12:11 Dose: 5 ml Documented By: MARIA DE JESUS Heparin Sodium (Porcine) (Heparin Sodium,Porcine 5,000 Unit/Ml Vial) 5,000 unit SUBCUT Q12H [facility] Last Admin: 06/16/23 08:09 Dose: 5,000 unit Documented By: MARIA DE JESUS Hydromorphone HCl (Hydromorphone Hcl 0.5 Mg/0.5 Ml Syringe) 0.5 mg IVPUSH Q4H PRN; Protocol PRN Reason: distress Last Admin: 06/16/23 04:08 Dose: 0.5 mg Documented By: TERESA Ceftriaxone Sodium 1 gm/ (Sodium Chloride) 50 mls @ 100 mls/hr IV DAILY [facility] Last Infusion: 06/16/23 12:40 Dose: Infused Documented By: MARIA DE JESUS Azithromycin 500 mg/ Sodium (Chloride) 250 mls @ 125 mls/hr IV DAILY [facility] Last Infusion: 06/16/23 12:18 Dose: Infused Documented By: MARIA DE JESUS Vancomycin HCl 1,250 mg/ (Sodium Chloride) 250 mls @ 166.667 mls/hr IV Q24H [facility] Last Infusion: 06/16/23 09:58 Dose: Infused Documented By: MARIA DE JESUS Methylprednisolone Sodium Succinate (Methylprednisolone Sod Succ 40 Mg/Ml Vial) 40 mg IVPUSH Q6H [facility] Last Admin: 06/16/23 12:08 Dose: 40 mg Documented By: MARIA DE JESUS Omeprazole (Omeprazole 20 Mg Capsule.) 20 mg PO DAILY@0630 [facility] Last Admin: 06/16/23 05:55 Dose: 20 mg Documented By: TERESA Oseltamivir Phosphate (Oseltamivir Phosphate 30 Mg Capsule) 30 mg PO BID [facility] Last Admin: 06/16/23 08:09 Dose: 30 mg Documented By: MARIA DE JESUS Pantoprazole Sodium (Pantoprazole Sodium 40 Mg/10 Ml Vial) 40 mg IVPUSH DAILY [facility] Last Admin: 06/16/23 08:09 Dose: 40 mg Documented By: MARIA DE JESUS Pharmacy Consult (Consult Rx Vancomycin Dosing) 1 each MISCELLANE DAILY PRN PRN Reason: Consult order Sodium Bicarbonate (Sodium Bicarbonate 650 Mg Tablet) 650 mg PO QID [facility] Last Admin: 06/16/23 12:08 Dose: 650 mg Documented By: MARIA DE JESUS Sodium Chloride (0.9 % Sodium Chloride Flush 3 Ml Syringe) 3 ml IVFLUSH QSHIFT [facility] Last Admin: 06/16/23 08:10 Dose: 3 ml Documented By: MARIA DE JESUS Labs 06/15/23 09:35 06/16/23 06:20 Labs: Laboratory Results - last 24 hr 06/15/23 06/15/23 06/16/23 09:35 17:02 03:38 Hold Purple Top O2 Saturation 95.0 ABG pH at Pt Temp 7.37 ABG pCO2 at Pt Temp 28 L ABG pO2 at Pt Temp 72 L ABG HCO3 16 L ABG Base Excess (Actual) -6.8 VBG pH 7.39 VBG pCO2 24 VBG pO2 81 VBG HCO3 15 L VBG O2 Saturation 97.0 VBG Base Excess -7.5 Anion Gap Estim Creat Clear Calc Estimated GFR Random Glucose Calcium Magnesium 25-OH Vitamin D Total 20.2 L 06/16/23 06:20 Hold Purple Top SEE NOTE O2 Saturation ABG pH at Pt Temp ABG pCO2 at Pt Temp ABG pO2 at Pt Temp ABG HCO3 ABG Base Excess (Actual) VBG pH VBG pCO2 VBG pO2 VBG HCO3 VBG O2 Saturation VBG Base Excess Anion Gap 16 Estim Creat Clear Calc 55.5 Estimated GFR 60 Random Glucose 186 H Calcium 8.0 L Magnesium 2.6 25-OH Vitamin D Total Microbiology Microbiology Results: Microbiology 06/13/23 20:26 Blood Culture - Preliminary Blood - Venous No growth after 48 hours. 06/13/23 20:26 Blood Culture - Preliminary Blood - Venous No growth after 48 hours. Assessment and Plan (1) ENEDELIA (acute kidney injury): Status: Acute (2) Acute hypoxic respiratory failure: Status: Acute Assessment and Plan: 77 years old man admitted with: Acute hypoxic respiratory failure possible secondary to pneumonia due to influenza + likely superimposed bacterial infection. moniter Pulse oximetry. Continue supplemental oxygen to keep oxygen saturation > 90%. has intermittent fevers ,blood cultures pending bnp normal. continue IV antibiotic therapy with azithromycin and ceftriaxone and vanco intiated on 06/14,Tamiflu X 5 days, bronchodilator therapy,iv solumedrole.moniter vanco trough ,renal function/electrolytes Severe sepsis secondary to above. acute Lactic acidosis resolved with ivf. Continue empiric IV antibiotic therapy ,Blood cultures pending. Renal failure (no previous history of renal failure or baseline creatinine found) and acute lactic acidosis. resolved with IV fluids. Avoid nephrotoxic agents. hypokalemia/hypomagnesemia /hypocalcemia : Hypokalemia and hypomagnesemia repleted and resolved(possible related diarrhea). The bicarb is also possibly related to diarrhea, bicarb replacement added. boderline calcium ,elevated pth ,low vitamin d in seetting of possible ckd 3: will add vitamin d. nephrology followup. Elevated troponin-flat,thought to be Likely demand ischemia due to tachycardia. echo:. Technically limited study despite use of contrast agent 2. Normal LV ejection fraction of 55-60% with impaired relaxation filling pattern 3. Mildly dilated left atrium 4. Poorly visualized cardiac valves with moderate mitral calcification with cardiac valvular Dopplers within normal limits 5. Normal RV systolic pressure DVT prophylaxis: Heparin subcut acute hypoxic respiratory failure possible secondary to pneumonia , ENEDELIA, multiple electrolytic abnormalities: Patient need broad-spectrum IV antibiotics, renal function electrolyte monitoring as well as patient is currently oxygen dependent due to acute hypoxemic respiratory failure-in my opinion patient would benefit from 48-72 hours of hospital stay. Quality Stroke Does the patient have a stroke diagnosis?: No VTE Prior VTE?: No VTE Risk Level:: Medical - moderate - high VTE Device Contraindication: Treatment Not Indicated VTE Drug Contraindication: N/A - Med Ordered
[2023-06-16] MEDS: Cholecalciferol (Vitamin D3) 25 MCG TABLET PO (16:43)
[2023-06-16] MEDS: Atorvastatin Calcium 80 MG TABLET PO (21:31)
[2023-06-16] MEDS: dilTIAZem HCL 50 MG/10 ML VIAL 10 MG IVPUSH (22:38)
[2023-06-16 22:58] LABS: Basophils Percent Auto 0.1 % (0-2); Hematocrit 34.2 % (42.0-52.0); Hemoglobin 12.3 g/dl (14.0-18.0); Imm Gran Abs Auto 0.07 X10*3/uL (0.00-0.03); Imm Gran Pct Auto 0.6 % (0.0-0.4); Lymphocytes Absolute Auto 0.4 X10*3/uL (1.2-4.9); Lymphocytes Percent Auto 3.2 % (20-40); MANUAL DIFF FLAG SCAN; Mean Corpuscular Hemoglobin 29.3 pg (27.0-33.0); Mean Corpuscular Volume 81.4 fL (80.0-98.0); Mean Platelet Volume 10.3 fL (9.4-12.4); Monocytes Absolute Auto 0.3 X10*3/uL (0.1-1.2); Neutrophils Absolute Auto 10.5 x10*3/uL (2.0-8.3); Neutrophils Percent Auto 93.1 % (45-73); Platelet Count 144 X10*3/uL (160-400); Red Cell Distribution Width 15.1 % (11.0-16.0); SCAN SMEAR FLAG 1; White Blood Count 11.2 X10*3/uL (4.8-10.8)
[2023-06-16 23:13] LABS: Alanine Aminotransferase 65 U/L (0-40); Albumin Level 3.6 g/dL (3.5-5.0); Alkaline Phosphatase 58 U/L (39-117); Anion Gap 17 (12-20); Aspartate Amino Transferase 73 U/L (5-37); Bilirubin Total 0.8 mg/dL (0.0-1.0); Blood Urea Nitrogen 31 mg/dL (9-16); Calcium 8.3 mg/dL (8.4-10.2); Carbon Dioxide 17 mmol/L (22-29); Chloride 113 mmol/L (96-108); Estimated Glomerular Filt Rate 59; Glucose Random 228 mg/dL (60-115); Magnesium 2.4 mg/dL (1.6-2.6); Potassium 3.4 mmol/L (3.3-5.1); Sodium 144 mmol/L (135-145); Total Protein 7.1 g/dL (6.5-8.0)
[2023-06-16 23:18] LABS: SLIDE REVIEW VERIFIED
[2023-06-16 23:30] LABS: Troponin-I High Sensitivity 244.5 ng/L (<3.5-35.0)
[2023-06-16] MEDS: dilTIAZem HCL 125 MG in 0.9 % Sodium Chloride 100 ML 10 MG IVCONT (23:50)
[2023-06-16] MEDS: dilTIAZem HCL 50 MG/10 ML VIAL 15 MG IVPUSH (23:50)
[2023-06-17] VITALS (12 sets, daily range): BP systolic 136–168; BP diastolic 72–93; PULSE 97–121; RESP 18–22; TEMP 36.2–36.6; O2SAT 92–96
[2023-06-17] MEDS: methylPREDNISolone Sod Succ 40 MG/ML VIAL IVPUSH ×4 (00:30→16:55)
[2023-06-17 00:43] LABS: INTERNATIONAL NORM RATIO 0.9 (0.9-1.1); Prothrombin Time 11.5 SEC (11.1-13.3)
[2023-06-17 00:46] LABS: PTT Heparin Drip 27.9 SEC (53-77.9)
[2023-06-17] MEDS: Heparin Sodium,Porcine/1/2NS 25,000 UNIT/250 ML IV.SOLN 8.81 UNIT IVCONT (01:16)
[2023-06-17] MEDS: Heparin Sodium,Porcine 5,000 UNIT/ML VIAL 7000 UNIT IVPUSH (02:15)
--- NOTE | 2023-06-17 02:30 | PC.NURSE ---
pt started on heparin drip at 01:16 per order. started at 10 units/kg/hr. PTT was low @ 27.9. Instructed by overnight pharmacy to administer heparin 7,000 units bolus with no rate change.
[2023-06-17] MEDS: Omeprazole 20 MG CAPSULE.DR PO (05:22)
[2023-06-17] MEDS: guaiFEN/Codeine SF 200/20/10ML 10 ML LIQUID 5 ML PO ×3 (06:37→20:13)
[2023-06-17 07:04] LABS: Creatinine Clr Calc Pharmacy 52.8; Estimated Glomerular Filt Rate 57
[2023-06-17 07:08] LABS: Prothrombin Time 12.3 SEC (11.1-13.3)
--- NOTE | 2023-06-17 07:18 | PM.EVENT ---
Event Note Date of Service: 06/17/23 Event Note: Patient developed rapid a-fib, new onset. Patient received tx with Cardizem IV push then infusion. Troponin >200. Heparin IV infusion initiated. Time Spent With Patient Time: Total time managing care of this patient today ____ minutes.
[2023-06-17 07:56] LABS: Vancomycin Random 9.2 mcg/mL (15-20)
[2023-06-17] MEDS: cefTRIAXone sodium 1 GM in 0.9 % Sodium Chloride 50 ML IV (09:35)
[2023-06-17] MEDS: vancomycin HCL 750 MG in 0.9 % Sodium Chloride 250 ML 265 MG IV ×2 (09:35→20:52)
[2023-06-17] MEDS: Oseltamivir Phosphate 30 MG CAPSULE PO ×2 (09:36→20:13)
[2023-06-17] MEDS: amLODIPine Besylate 5 MG TABLET PO (09:36)
[2023-06-17] MEDS: 0.9 % Sodium Chloride Flush 3 ML SYRINGE IVFLUSH ×2 (09:36→16:56)
[2023-06-17] MEDS: Sodium Bicarbonate 650 MG TABLET PO ×4 (09:36→20:13)
[2023-06-17] MEDS: Cholecalciferol (Vitamin D3) 25 MCG TABLET PO (09:36)
--- NOTE | 2023-06-17 10:09 | HE.PHANOTE ---
RE: Vanco Dose changed to 750mg Q12H: predicted AUC 439, predicted trough 14.1. Next trough 06/18 @0700.
[2023-06-17] MEDS: Azithromycin 500 MG in 0.9 % Sodium Chloride 250 ML 125 MG IV (11:21)
[2023-06-17] MEDS: Apixaban 5 MG TABLET PO ×2 (11:22→20:13)
[2023-06-17] MEDS: Albuterol/Iprat 2.5/0.5MG 3 ML AMPUL.NEB INHALE ×4 (11:36→23:43)
--- NOTE | 2023-06-17 11:37 | P.CONCA_ITS ---
History of Present Illness History of Present Illness Date of Service: 06/17/23 Requesting physician: Pavel Caceres Consult reason: atrial fibrillation and troponin elevation Chief complaint: Hypoxic Respiratory Failure Narrative: I was consulted to see Thierno in cardiology consultation today for new onset atrial fibrillation. He has a 77-year-old male who currently lives in assisted living facility with prior history of hypertension, hyperlipidemia no prior cardiac history as per him. Patient came to the hospital because he developed flu and weakness and fell out and was noted to be in acute hypoxemic respiratory failure and suspected ARDS. Subsequently had rising troponins which are managed medically. Currently getting high-flow oxygen and oxygen is within normal limits. Last night developed atrial fibrillation with rapid ventricular response. Patient denies any cardiovascular symptoms. Denies any chest pain or palpitations. Also denies shortness of breath although clinically appears to be mildly short of breath. Review of Systems 2 Constitutional: Constitutional: Reports weakness Eyes: Eyes: Reports no additional eye complaints ENT: Reports system reviewed and no additional complaints, except as documented Cardiovascular: Cardiovascular: Reports no additional cardiovascular complaints and Reports dyspnea Respiratory: Respiratory: Reports dyspnea and Reports wheezing Gastrointestinal: Gastrointestinal: Reports no additional gastrointestinal complaints Genitourinary: Genitourinary: Reports no additional male genitourinary complaints Musculoskeletal: Musculoskeletal: Reports no additional musculoskeletal complaints Integumentary/Breasts: Skin/Breast: Reports system reviewed and no additional complaints, except as docu Neurologic: Reports system reviewed and no additional complaints, except as documented and Reports weakness Allergic/Immunologic: Allergic/Immunologic: Reports wheezing PMFSH Past Medical History Medical History GERD (gastroesophageal reflux disease) Hypercholesteremia Hypertension Social History Social History Household Members: None Household Members Other:: Pt from [facility] Housing: [facility] Do you presently have visiting nurse or other home services: No Patient Tobacco Use Status: Never used Tobacco Advance Directives Date on File: 06/14/23 service: No Meds Allergies Allergy/AdvReac Type Severity Reaction Status Date / Time atorvastatin Allergy Unknown itching Verified 11/20/19 00:00 Active Medications: Current Medications Acetaminophen (Acetaminophen 325 Mg Tablet) 975 mg PO Q6H PRN PRN Reason: fever and pain Last Admin: 06/16/23 04:49 Dose: 975 mg Albuterol/Ipratropium (Albuterol/Iprat 2.5/0.5mg 3 Ml Ampul.Neb) 3 ml INHALE Q4H [facility] Last Admin: 06/17/23 11:36 Dose: 3 ml Albuterol/Ipratropium (Albuterol/Iprat 2.5/0.5mg 3 Ml Ampul.Neb) 3 ml INHALE Q2H PRN PRN Reason: sob Amlodipine Besylate (Amlodipine Besylate 5 Mg Tablet) 5 mg PO DAILY [facility]; Protocol Last Admin: 06/17/23 09:36 Dose: 5 mg Apixaban (Apixaban 5 Mg Tablet) 5 mg PO BID [facility] Atorvastatin Calcium (Atorvastatin Calcium 80 Mg Tablet) 80 mg PO BEDTIME [facility] Last Admin: 06/16/23 21:31 Dose: 80 mg Calcium Carbonate (Calcium Carbonate 500 Mg Tablet) 500 mg PO DAILY [facility] Last Admin: 06/17/23 09:36 Dose: 500 mg Guaifenesin/Codeine Phosphate (Guaifen/Codeine Sf 200/20/10ml 10 Ml Liquid) 5 ml PO Q4H PRN PRN Reason: Cough Last Admin: 06/17/23 11:29 Dose: 5 ml Heparin Sodium (Porcine) (Heparin Sodium,Porcine 5,000 Unit/Ml Vial) 3,500 unit 40 unit/kg (3500 unit) IVPUSH PROTOCOL BOLUS PRN; Protocol PRN Reason: 40 unit/kg - Heparin Protocol Heparin Sodium (Porcine) (Heparin Sodium,Porcine 5,000 Unit/Ml Vial) 7,000 unit 80 unit/kg (7000 unit) IVPUSH PROTOCOL BOLUS PRN; Protocol PRN Reason: 80 unit/kg - Heparin Protocol Last Admin: 06/17/23 02:15 Dose: 7,000 unit Hydromorphone HCl (Hydromorphone Hcl 0.5 Mg/0.5 Ml Syringe) 0.5 mg IVPUSH Q4H PRN; Protocol PRN Reason: distress Last Admin: 06/16/23 16:48 Dose: 0.5 mg Ceftriaxone Sodium 1 gm/ (Sodium Chloride) 50 mls @ 100 mls/hr IV DAILY [facility] Last Infusion: 06/17/23 10:05 Dose: Infused Azithromycin 500 mg/ Sodium (Chloride) 250 mls @ 125 mls/hr IV DAILY [facility] Last Admin: 06/17/23 11:21 Dose: 125 mls/hr Vancomycin HCl 750 mg/ Sodium (Chloride) 265 mls @ 265 mls/hr IV Q12H [facility] Last Admin: 06/17/23 09:35 Dose: 265 mls/hr Amiodarone HCl 900 mg/ Sodium (Chloride) 518 mls @ 34.533 mls/hr IVCONT .Q15H1M [facility]; Protocol Methylprednisolone Sodium Succinate (Methylprednisolone Sod Succ 40 Mg/Ml Vial) 40 mg IVPUSH Q6H [facility] Last Admin: 06/17/23 11:22 Dose: 40 mg Omeprazole (Omeprazole 20 Mg Capsule.Dr) 20 mg PO DAILY@0630 [facility] Last Admin: 06/17/23 05:22 Dose: 20 mg Oseltamivir Phosphate (Oseltamivir Phosphate 30 Mg Capsule) 30 mg PO BID [facility] Last Admin: 06/17/23 09:36 Dose: 30 mg Pharmacy Consult (Consult Rx Vancomycin Dosing) 1 each MISCELLANE DAILY PRN PRN Reason: Consult order Sodium Bicarbonate (Sodium Bicarbonate 650 Mg Tablet) 650 mg PO QID [facility] Last Admin: 06/17/23 09:36 Dose: 650 mg Sodium Chloride (0.9 % Sodium Chloride Flush 3 Ml Syringe) 3 ml IVFLUSH QSHIFT [facility] Last Admin: 06/17/23 09:36 Dose: 3 ml Vitamin D (Cholecalciferol (Vitamin D3) 25 Mcg Tablet) 25 mcg PO DAILY [facility] Last Admin: 06/17/23 09:36 Dose: 25 mcg Home Medications Medication Instructions Recorded Confirmed Last Taken Type amlodipine 5 mg tablet 5 mg PO DAILY 06/14/23 06/14/23 06/12/23 History lisinopril 30 mg tablet 30 mg PO DAILY 06/14/23 06/14/23 06/12/23 History pantoprazole 20 mg tablet,delayed 20 mg PO DAILY 06/14/23 06/14/23 06/12/23 History release rosuvastatin 20 mg tablet 20 mg PO BEDTIME 06/14/23 06/14/23 06/12/23 History tramadol 50 mg tablet 50 mg PO Q6H PRN Pain 06/14/23 06/14/23 Unknown History Physical Exam 2 Vital Signs: Vital Signs: Last Vital Signs Temp 97.5 F 06/17/23 11:08 Pulse 99 06/17/23 11:08 Resp 20 06/17/23 11:08 BP 156/87 H 06/17/23 11:08 Pulse Ox 94 06/17/23 11:08 O2 Del Method High Flow Nasal C annula 06/17/23 11:08 O2 Flow Rate 40 06/17/23 11:08 FiO2 30 06/17/23 11:08 BMI result Body Mass Index 30.4 Const: General: cooperative, alert, awake, in distress mild and respiratory and tired appearing Nutritional Appearance: overweight O rientation/consciousness: patient oriented x3 HEENT: Head: Yes normocephalic and Yes atraumatic Neck: Neck: Yes trachea midline, Yes supple and Yes no JVD Resp: Effort & Inspection: decreased respiratory effort Auscultation: w heezes scattered wheezes Cardio: Jugular venous distension: no JVD Rate: tachycardic Rhythm: a bnormal rhythm irregularly irregular Heart sounds: S1 normal heart sound present, S2 normal heart sound present, no click, no gallops, no murmurs and no rubs GI: Auscultation: normal bowel sounds Skin: General skin exam: no rashes or lesions noted Neuro: General: patient oriented x3 and no focal motor deficits Extrem: General: Yes no clubbing, cyanosis or edema Objective Labs and Meds 06/16/23 22:51 06/17/23 06:10 Lab results: Laboratory Results - last 24 hr 06/16/23 06/16/23 06/17/23 22:50 22:51 00:13 WBC 11.2 H RBC 4.20 L Hgb 12.3 L Hct 34.2 L MCV 81.4 MCH 29.3 MCHC 36.0 RDW 15.1 Plt Count 144 L D MPV 10.3 Immature Gran % (Auto) 0.6 H Neut % (Auto) 93.1 H Lymph % (Auto) 3.2 L [place] % (Auto) 3.0 Eos % (Auto) 0.0 Baso % (Auto) 0.1 Lymph # (Auto) 0.4 L [place] # (Auto) 0.3 Eos # (Auto) 0.0 Baso # (Auto) 0.0 Abs Immat Gran (auto) 0.07 H Absolute Neuts (auto) 10.5 H Absolute Nucleated RBC 0.000 Nucleated RBC % (auto) 0.0 Smear Tech's Comments VERIFIED PT 11.5 INR 0.9 aPTT Heparin Protocol 27.9 L Sodium 144 Potassium 3.4 Chloride 113 H Carbon Dioxide 17 L Anion Gap 17 BUN 31 H Creatinine 1.19 Estim Creat Clear Calc 55.0 Estimated GFR 59 Random Glucose 228 H Lactic Acid 2.0 Calcium 8.3 L Magnesium 2.4 Total Bilirubin 0.8 AST 73 H ALT 65 H Alkaline Phosphatase 58 Troponin I High Sens 244.5 H* D Total Protein 7.1 Albumin 3.6 Random Vancomycin 06/17/23 06/17/23 06:10 07:22 WBC RBC Hgb Hct MCV MCH MCHC RDW Plt Count MPV Immature Gran % (Auto) Neut % (Auto) Lymph % (Auto) [place] % (Auto) Eos % (Auto) Baso % (Auto) Lymph # (Auto) [place] # (Auto) Eos # (Auto) Baso # (Auto) Abs Immat Gran (auto) Absolute Neuts (auto) Absolute Nucleated RBC Nucleated RBC % (auto) Smear Tech's Comments PT 12.3 INR 1.0 aPTT Heparin Protocol 75.0 D Sodium Potassium Chloride Carbon Dioxide Anion Gap BUN Creatinine 1.24 Estim Creat Clear Calc 52.8 Estimated GFR 57 Random Glucose Lactic Acid Calcium Magnesium Total Bilirubin AST ALT Alkaline Phosphatase Troponin I High Sens 163.0 H* Total Protein Albumin Random Vancomycin 9.2 L EKG shows atrial fibrillation with ST T wave changes related to rate Assessment and Plan (1) Atrial fibrillation with rapid ventricular response: Status: Acute Atrial fibrillation rapid ventricular response, new onset with less than 24 hours of duration. With no prior history. Patient does have risk factors including hypertension and age. However most likely triggered by his acute medical issue and acute hypoxemic respiratory failure. Given that his atrial fibrillation of new onset will try to pursue rhythm control approach and start on IV amiodarone with the purpose of both rate control and rhythm control. Troponin elevation related to AFib as well as hypoxemic respiratory failure. Can switch to oral anticoagulation with Eliquis. CHADSVASc score of 3. Echocardiogram to be requested. (2) Elevated troponin: Status: Acute Elevated troponin multifactorial but secondary to hypoxemic respiratory failure as well as atrial fibrillation rapid ventricular response with ENEDELIA. Can switch to oral anticoagulation with Eliquis. Eventually require ischemic workup once stable from pulmonary perspective. Will continue to follow with you Procedures Date of Service Date of Service: 06/17/23
[2023-06-17] MEDS: Amiodarone HCL 900 MG in 0.9 % Sodium Chloride 500 ML 34.53 MG IVCONT ×2 (12:00→16:55)
--- NOTE | 2023-06-17 14:11 | P.PNIM_ITS ---
Subjective Subjective Date of Service: 06/17/23 Interval History: copd excerebation overnight events noted Review of Systems says sob seems somewhat improving, has cough Physical Exam 2 Vital Signs: Vital Signs: Last Vital Signs Temp 97.5 F 06/17/23 11:08 Pulse 106 H 06/17/23 12:18 Resp 19 06/17/23 12:18 BP 138/74 06/17/23 12:18 Pulse Ox 96 06/17/23 12:18 O2 Del Method High Flow Nasal C annula 06/17/23 12:18 O2 Flow Rate 40 06/17/23 12:18 FiO2 30 06/17/23 12:18 BMI result Body Mass Index 30.4 Appearance: Alert.? Oriented .? cvs: rrr, [id number] . res: air entry diminshed ,wheezing b/l, no rales abd: no rebound or guarding ,nt, bs present. ext pulses present , no cyanosis . neuro: nonfocal. Objective Data Active Medications Acetaminophen (Acetaminophen 325 Mg Tablet) 975 mg PO Q6H PRN PRN Reason: fever and pain Last Admin: 06/16/23 04:49 Dose: 975 mg Documented By: TERESA Albuterol/Ipratropium (Albuterol/Iprat 2.5/0.5mg 3 Ml Ampul.Neb) 3 ml INHALE Q4H [facility] Last Admin: 06/17/23 11:36 Dose: 3 ml Documented By: ROSARIO Albuterol/Ipratropium (Albuterol/Iprat 2.5/0.5mg 3 Ml Ampul.Neb) 3 ml INHALE Q2H PRN PRN Reason: sob Amlodipine Besylate (Amlodipine Besylate 5 Mg Tablet) 5 mg PO DAILY [facility]; Protocol Last Admin: 06/17/23 09:36 Dose: 5 mg Documented By: EDWAR Apixaban (Apixaban 5 Mg Tablet) 5 mg PO BID [facility] Atorvastatin Calcium (Atorvastatin Calcium 80 Mg Tablet) 80 mg PO BEDTIME [facility] Last Admin: 06/16/23 21:31 Dose: 80 mg Documented By: YVES Calcium Carbonate (Calcium Carbonate 500 Mg Tablet) 500 mg PO DAILY [facility] Last Admin: 06/17/23 09:36 Dose: 500 mg Documented By: EDWAR Guaifenesin/Codeine Phosphate (Guaifen/Codeine Sf 200/20/10ml 10 Ml Liquid) 5 ml PO Q4H PRN PRN Reason: Cough Last Admin: 06/17/23 11:29 Dose: 5 ml Documented By: EDWAR Heparin Sodium (Porcine) (Heparin Sodium,Porcine 5,000 Unit/Ml Vial) 3,500 unit 40 unit/kg (3500 unit) IVPUSH PROTOCOL BOLUS PRN; Protocol PRN Reason: 40 unit/kg - Heparin Protocol Heparin Sodium (Porcine) (Heparin Sodium,Porcine 5,000 Unit/Ml Vial) 7,000 unit 80 unit/kg (7000 unit) IVPUSH PROTOCOL BOLUS PRN; Protocol PRN Reason: 80 unit/kg - Heparin Protocol Last Admin: 06/17/23 02:15 Dose: 7,000 unit Documented By: YVES Hydromorphone HCl (Hydromorphone Hcl 0.5 Mg/0.5 Ml Syringe) 0.5 mg IVPUSH Q4H PRN; Protocol PRN Reason: distress Last Admin: 06/16/23 16:48 Dose: 0.5 mg Documented By: MARIA DE JESUS Ceftriaxone Sodium 1 gm/ (Sodium Chloride) 50 mls @ 100 mls/hr IV DAILY [facility] Last Infusion: 06/17/23 10:05 Dose: Infused Documented By: EDWAR Azithromycin 500 mg/ Sodium (Chloride) 250 mls @ 125 mls/hr IV DAILY [facility] Last Infusion: 06/17/23 13:21 Dose: Infused Documented By: EDWAR Vancomycin HCl 750 mg/ Sodium (Chloride) 265 mls @ 265 mls/hr IV Q12H [facility] Last Infusion: 06/17/23 10:35 Dose: Infused Documented By: EDWAR Amiodarone HCl 900 mg/ Sodium (Chloride) 518 mls @ 34.533 mls/hr IVCONT .Q15H1M [facility]; Protocol Last Admin: 06/17/23 12:00 Dose: 1 mg/min, 34.53 mls/hr Documented By: EDWAR Methylprednisolone Sodium Succinate (Methylprednisolone Sod Succ 40 Mg/Ml Vial) 40 mg IVPUSH Q6H [facility] Last Admin: 06/17/23 11:22 Dose: 40 mg Documented By: EDWAR Omeprazole (Omeprazole 20 Mg Capsule.Dr) 20 mg PO DAILY@0630 [facility] Last Admin: 06/17/23 05:22 Dose: 20 mg Documented By: YVES Oseltamivir Phosphate (Oseltamivir Phosphate 30 Mg Capsule) 30 mg PO BID [facility] Last Admin: 06/17/23 09:36 Dose: 30 mg Documented By: EDWAR Pharmacy Consult (Consult Rx Vancomycin Dosing) 1 each MISCELLANE DAILY PRN PRN Reason: Consult order Sodium Bicarbonate (Sodium Bicarbonate 650 Mg Tablet) 650 mg PO QID [facility] Last Admin: 06/17/23 11:44 Dose: 650 mg Documented By: EDWAR Sodium Chloride (0.9 % Sodium Chloride Flush 3 Ml Syringe) 3 ml IVFLUSH QSHIFT [facility] Last Admin: 06/17/23 09:36 Dose: 3 ml Documented By: EDWAR Vitamin D (Cholecalciferol (Vitamin D3) 25 Mcg Tablet) 25 mcg PO DAILY [facility] Last Admin: 06/17/23 09:36 Dose: 25 mcg Documented By: EDWAR Labs 06/16/23 22:51 06/17/23 06:10 Labs: Laboratory Results - last 24 hr 06/16/23 06/16/23 06/17/23 22:50 22:51 00:13 MCV 81.4 MCH 29.3 MCHC 36.0 RDW 15.1 Plt Count 144 L D MPV 10.3 Immature Gran % (Auto) 0.6 H Neut % (Auto) 93.1 H Lymph % (Auto) 3.2 L [place] % (Auto) 3.0 Eos % (Auto) 0.0 Baso % (Auto) 0.1 Lymph # (Auto) 0.4 L [place] # (Auto) 0.3 Eos # (Auto) 0.0 Baso # (Auto) 0.0 Abs Immat Gran (auto) 0.07 H Absolute Neuts (auto) 10.5 H Absolute Nucleated RBC 0.000 Nucleated RBC % (auto) 0.0 Smear Tech's Comments VERIFIED PT 11.5 INR 0.9 aPTT Heparin Protocol 27.9 L Anion Gap 17 Estim Creat Clear Calc 55.0 Estimated GFR 59 Random Glucose 228 H Lactic Acid 2.0 Calcium 8.3 L Magnesium 2.4 Total Bilirubin 0.8 AST 73 H ALT 65 H Alkaline Phosphatase 58 Troponin I High Sens 244.5 H* D Total Protein 7.1 Albumin 3.6 Random Vancomycin 06/17/23 06/17/23 06:10 07:22 MCV MCH MCHC RDW Plt Count MPV Immature Gran % (Auto) Neut % (Auto) Lymph % (Auto) [place] % (Auto) Eos % (Auto) Baso % (Auto) Lymph # (Auto) [place] # (Auto) Eos # (Auto) Baso # (Auto) Abs Immat Gran (auto) Absolute Neuts (auto) Absolute Nucleated RBC Nucleated RBC % (auto) Smear Tech's Comments PT 12.3 INR 1.0 aPTT Heparin Protocol 75.0 D Anion Gap Estim Creat Clear Calc 52.8 Estimated GFR 57 Random Glucose Lactic Acid Calcium Magnesium Total Bilirubin AST ALT Alkaline Phosphatase Troponin I High Sens 163.0 H* Total Protein Albumin Random Vancomycin 9.2 L Assessment and Plan (1) Atrial fibrillation with rapid ventricular response: Status: Acute (2) ARDS (adult respiratory distress syndrome): Status: Acute (3) Elevated troponin: Status: Acute Assessment and Plan: 77 years old man admitted with: Acute hypoxic respiratory failure possible secondary to pneumonia due to influenza + likely superimposed bacterial infection. on high flow (HF) oxygen has intermittent fevers ,blood cultures pending bnp normal. continue IV antibiotic therapy with azithromycin and ceftriaxone and vanco intiated on 06/14,Tamiflu X 5 days, bronchodilator therapy,iv solumedrole.moniter vanco trough ,renal function/electrolytes,moniter Pulse oximetry, supplemental oxygen with HF to keep oxygen saturation > 90%. new onset afib: trops flat due to demand afib/repiratory failure need amiodarone drip echo cardiology eval. Severe sepsis secondary to above. acute Lactic acidosis resolved with ivf. Continue empiric IV antibiotic therapy ,Blood cultures pending. Renal failure (no previous history of renal failure or baseline creatinine found) and acute lactic acidosis. resolved with IV fluids. Avoid nephrotoxic agents. hypokalemia/hypomagnesemia /hypocalcemia : Hypokalemia and hypomagnesemia repleted and resolved(possible related diarrhea). The bicarb is also possibly related to diarrhea, bicarb replacement added. boderline calcium ,elevated pth ,low vitamin d in seetting of possible ckd 3: will add vitamin d. nephrology followup. Elevated troponin-flat,thought to be Likely demand ischemia due to tachycardia. echo:. Technically limited study despite use of contrast agent 2. Normal LV ejection fraction of 55-60% with impaired relaxation filling pattern 3. Mildly dilated left atrium 4. Poorly visualized cardiac valves with moderate mitral calcification with cardiac valvular Dopplers within normal limits 5. Normal RV systolic pressure DVT prophylaxis: Heparin subcut acute hypoxic respiratory failure possible secondary to pneumonia , Afib , multiple electrolytic abnormalities:need continuous high flow oxygen, Patient need broad-spectrum IV antibiotics, renal function electrolyte monitoring as well as patient is currently oxygen dependent due to acute hypoxemic respiratory failure,also need cardiac workup for afib and amiodarone drip and tele monitering Quality Stroke Does the patient have a stroke diagnosis?: No VTE Prior VTE?: No VTE Risk Level:: Medical - moderate - high VTE Device Contraindication: Treatment Not Indicated VTE Drug Contraindication: N/A - Med Ordered
[2023-06-17] MEDS: Atorvastatin Calcium 80 MG TABLET PO (20:13)
[2023-06-18] VITALS (13 sets, daily range): BP systolic 145–157; BP diastolic 71–96; PULSE 75–135; RESP 17–20; TEMP 36.1–36.8; O2SAT 92–97
[2023-06-18] MEDS: guaiFEN/Codeine SF 200/20/10ML 10 ML LIQUID 5 ML PO ×4 (01:17→16:40)
[2023-06-18] MEDS: 0.9 % Sodium Chloride Flush 3 ML SYRINGE IVFLUSH ×3 (01:17→23:58)
[2023-06-18] MEDS: methylPREDNISolone Sod Succ 40 MG/ML VIAL IVPUSH ×5 (01:17→23:58)
[2023-06-18] MEDS: Albuterol/Iprat 2.5/0.5MG 3 ML AMPUL.NEB INHALE ×5 (04:40→19:44)
[2023-06-18] MEDS: Omeprazole 20 MG CAPSULE.DR PO (05:58)
[2023-06-18 08:10] LABS: Estimated Glomerular Filt Rate 55; Magnesium 2.6 mg/dL (1.6-2.6); Potassium 3.5 mmol/L (3.3-5.1)
--- NOTE | 2023-06-18 08:30 | HE.PHANOTE ---
RE: CHLOE Patient's renal function stable, giving 1000mg one time dose to bump up and get theraprutic, 750 Q12H to resume 06/18 @2100, trough ordered for 06/19 @0700.
[2023-06-18] MEDS: amLODIPine Besylate 5 MG TABLET PO (08:47)
[2023-06-18] MEDS: Sodium Bicarbonate 650 MG TABLET PO ×4 (08:47→21:00)
[2023-06-18] MEDS: Cholecalciferol (Vitamin D3) 25 MCG TABLET PO (08:47)
[2023-06-18] MEDS: Apixaban 5 MG TABLET PO ×2 (08:47→21:00)
[2023-06-18] MEDS: Oseltamivir Phosphate 30 MG CAPSULE PO ×2 (08:47→21:00)
[2023-06-18] MEDS: cefTRIAXone sodium 1 GM in 0.9 % Sodium Chloride 50 ML IV (08:47)
[2023-06-18] MEDS: Azithromycin 500 MG in 0.9 % Sodium Chloride 250 ML 125 MG IV (08:48)
[2023-06-18] MEDS: vancomycin HCL 1,000 MG in 0.9 % Sodium Chloride 250 ML 270 MG IV (09:09)
[2023-06-18] MEDS: dilTIAZem HCL 50 MG/10 ML VIAL IVPUSH (09:32)
--- NOTE | 2023-06-18 11:04 | PM.PNCARD ---
Subjective Subjective Date of Service: 06/18/23 Principal diagnosis: Hypoxia, atrial fibrillation. Interval history: Patient remains in atrial fibrillation with rapid ventricular response despite amiodarone start. Patient denies any cardiac symptoms. Also denies shortness of breath but visibly appears to be short of breath. Still requiring high levels of oxygen. Review of Systems Review of Systems Yes all other systems are reviewed and are negative Physical Exam Vital Signs: Last Vital Signs Temp 97.9 F 06/18/23 11:00 Pulse 111 H 06/18/23 11:00 Resp 20 06/18/23 11:00 BP 149/74 H 06/18/23 11:00 Pulse Ox 97 06/18/23 11:00 O2 Del Method High Flow Nasal Cannula 06/18/23 11:00 O2 Flow Rate 40 06/18/23 11:00 FiO2 30 06/18/23 11:00 BMI result Body Mass Index 30.4 Const General: cooperative, alert, awake, in distress mild and respiratory and tired appearing Nutritional Appearance: overweight Orientation/consciousness: patient oriented x3 HEENT Head: Yes normocephalic and Yes atraumatic Neck Neck: Yes trachea midline, Yes supple and Yes no JVD Resp Effort & Inspection: decreased respiratory effort Auscultation: wheezes scattered wheezes Cardio Jugular venous distension: no JVD Rate: tachycardic Rhythm: abnormal rhythm irregularly irregular Heart sounds: S1 normal heart sound present, S2 normal heart sound present, no click, no gallops, no murmurs and no rubs GI Auscultation: normal bowel sounds Skin General skin exam: no rashes or lesions noted Neuro General: patient oriented x3 and no focal motor deficits Extrem General: Yes no clubbing, cyanosis or edema Objective Labs and Meds 06/16/23 22:51 06/18/23 07:06 Lab results: Laboratory Results - last 24 hr 06/18/23 07:06 Potassium 3.5 Creatinine 1.26 Estim Creat Clear Calc 52.0 Estimated GFR 55 Magnesium 2.6 Random Vancomycin 13.0 L Progress Note: A&P Assessment and plan (1) Atrial fibrillation with rapid ventricular response: Status: Acute Assessment and Plan: Atrial fibrillation with rapid ventricular response, difficult control rate due to underlying acute medical issues with acute hypoxemic respiratory failure. Patient denies any symptoms. Amiodarone is not effective. Will switch to Cardizem therapy for just rate control at this point in time. Switch to Cardizem 30 mg q.6 with intermittent Cardizem boluses IV if need be. Continue amiodarone IV for 1 more day. If remains in AFib by tomorrow amiodarone can be discontinued and patient to be switched to just p.o. rate control with Cardizem if possible. Continue supportive care. Continue full oral anticoagulation. Echocardiogram to be requested. (2) Acute hypoxic respiratory failure: Status: Acute Assessment and Plan: Acute hypoxemic respiratory failure related to flu/ARDS. Patient is currently still requiring high levels of oxygen. If remains significant hypoxemic may repeat chest radiograph. Check echocardiogram. Clinically does appear to be in overt heart failure at this point time but appears to be related to underlying pulmonary infiltrate parenchymal disease related to to flu and possible ARDS. Continue monitor clinically. Will follow with you Time Spent With Patient Time: Total time managing care of this patient today ____ minutes. Progress Note: Quality Stroke Does the patient have a stroke diagnosis?: No Procedures Date of Service Date of Service: 06/18/23
--- NOTE | 2023-06-18 11:22 | P.PNIM_ITS ---
Subjective Subjective Date of Service: 06/18/23 Interval History: acute hypoxemic respiratory failure AFib with RVR Review of Systems Patient still short of breath with minimal exertion. Has cough intermittent. No fever, Elevated heart rate in on 130s to 140 range this morning especially with exertion. Physical Exam 2 Vital Signs: Vital Signs: Last Vital Signs Temp 97.9 F 06/18/23 11:00 Pulse 111 H 06/18/23 11:00 Resp 20 06/18/23 11:00 BP 149/74 H 06/18/23 11:00 Pulse Ox 97 06/18/23 11:00 O2 Del Method High Flow Nasal C annula 06/18/23 11:00 O2 Flow Rate 40 06/18/23 11:00 FiO2 30 06/18/23 11:00 BMI result Body Mass Index 30.4 Appearance: Alert.? Oriented X3. cvs: rrr, [id number] , no murmur res: air entry fair ,few rhonchii b/l ,no rales abd: no rebound or guarding ,nt, bs present. ext pulses present , no cyanosis neuro: axo3 , nonfocal. Objective Data Active Medications Acetaminophen (Acetaminophen 325 Mg Tablet) 975 mg PO Q6H PRN PRN Reason: fever and pain Last Admin: 06/16/23 04:49 Dose: 975 mg Documented By: TERESA Albuterol/Ipratropium (Albuterol/Iprat 2.5/0.5mg 3 Ml Ampul.Neb) 3 ml INHALE Q4H [facility] Last Admin: 06/18/23 07:57 Dose: 3 ml Documented By: ROSARIO Albuterol/Ipratropium (Albuterol/Iprat 2.5/0.5mg 3 Ml Ampul.Neb) 3 ml INHALE Q2H PRN PRN Reason: sob Amlodipine Besylate (Amlodipine Besylate 5 Mg Tablet) 5 mg PO DAILY [facility]; Protocol Last Admin: 06/18/23 08:47 Dose: 5 mg Documented By: EDWAR Apixaban (Apixaban 5 Mg Tablet) 5 mg PO BID [facility] Last Admin: 06/18/23 08:47 Dose: 5 mg Documented By: EDWAR Atorvastatin Calcium (Atorvastatin Calcium 80 Mg Tablet) 80 mg PO BEDTIME [facility] Last Admin: 06/17/23 20:13 Dose: 80 mg Documented By: TIMBO Calcium Carbonate (Calcium Carbonate 500 Mg Tablet) 500 mg PO DAILY [facility] Last Admin: 06/18/23 08:47 Dose: 500 mg Documented By: EDWAR Guaifenesin/Codeine Phosphate (Guaifen/Codeine Sf 200/20/10ml 10 Ml Liquid) 5 ml PO Q4H PRN PRN Reason: Cough Last Admin: 06/18/23 08:47 Dose: 5 ml Documented By: EDWAR Hydromorphone HCl (Hydromorphone Hcl 0.5 Mg/0.5 Ml Syringe) 0.5 mg IVPUSH Q4H PRN; Protocol PRN Reason: distress Last Admin: 06/16/23 16:48 Dose: 0.5 mg Documented By: MARIA DE JESUS Ceftriaxone Sodium 1 gm/ (Sodium Chloride) 50 mls @ 100 mls/hr IV DAILY [facility] Last Infusion: 06/18/23 09:17 Dose: Infused Documented By: EDWAR Azithromycin 500 mg/ Sodium (Chloride) 250 mls @ 125 mls/hr IV DAILY [facility] Last Admin: 06/18/23 08:48 Dose: 125 mls/hr Documented By: EDWAR Vancomycin HCl 750 mg/ Sodium (Chloride) 265 mls @ 265 mls/hr IV Q12H [facility] Last Infusion: 06/17/23 22:37 Dose: Infused Documented By: TIMBO Amiodarone HCl 900 mg/ Sodium (Chloride) 518 mls @ 34.533 mls/hr IVCONT .Q15H1M [facility]; Protocol Last Infusion: 06/17/23 18:15 Dose: 0.5 mg/min, 17.27 mls/hr Documented By: EDWAR Methylprednisolone Sodium Succinate (Methylprednisolone Sod Succ 40 Mg/Ml Vial) 40 mg IVPUSH Q6H [facility] Last Admin: 06/18/23 05:58 Dose: 40 mg Documented By: LENARD Omeprazole (Omeprazole 20 Mg Capsule.) 20 mg PO DAILY@0630 [facility] Last Admin: 06/18/23 05:58 Dose: 20 mg Documented By: LENARD Oseltamivir Phosphate (Oseltamivir Phosphate 30 Mg Capsule) 30 mg PO BID [facility] Last Admin: 06/18/23 08:47 Dose: 30 mg Documented By: EDWAR Pharmacy Consult (Consult Rx Vancomycin Dosing) 1 each MISCELLANE DAILY PRN PRN Reason: Consult order Sodium Bicarbonate (Sodium Bicarbonate 650 Mg Tablet) 650 mg PO QID [facility] Last Admin: 06/18/23 08:47 Dose: 650 mg Documented By: EDWAR Sodium Chloride (0.9 % Sodium Chloride Flush 3 Ml Syringe) 3 ml IVFLUSH QSHIFT [facility] Last Admin: 06/18/23 08:48 Dose: 3 ml Documented By: EDWAR Vitamin D (Cholecalciferol (Vitamin D3) 25 Mcg Tablet) 25 mcg PO DAILY [facility] Last Admin: 06/18/23 08:47 Dose: 25 mcg Documented By: EDWAR Labs 06/16/23 22:51 06/18/23 07:06 Labs: Laboratory Results - last 24 hr 06/18/23 07:06 Estim Creat Clear Calc 52.0 Estimated GFR 55 Magnesium 2.6 Random Vancomycin 13.0 L Assessment and Plan (1) Atrial fibrillation with rapid ventricular response: Status: Acute (2) Acute hypoxic respiratory failure: Status: Acute (3) Influenza A: Status: Acute (4) ARDS (adult respiratory distress syndrome): Status: Acute (5) Elevated troponin: Status: Acute Assessment and Plan: 77 years old man admitted with: Acute hypoxic respiratory failure possible secondary to pneumonia due to influenza + likely superimposed bacterial infection. on high flow (HF) oxygen,fever resolved ,blood cultures neg@48hrs ,bnp normal. plan: continue IV antibiotic therapy with azithromycin and ceftriaxone and vanco intiated on 06/14, Tamiflu X 5 days, bronchodilator therapy,iv solumedrole. moniter vanco trough ,renal function/electrolytes,moniter Pulse oximetry, supplemental oxygen with HF to keep oxygen saturation > 90%. pulmonary followup new onset afib: hr still elevated trops flat due to demand afib/repiratory failure need amiodarone drip,will give 5 mg iv cardizem ,also po cardizem 30 mg qid. echo: Normal LV ejection fraction of 55-60% with impaired relaxation filling pattern cardiology followup noted -continue amiodarone drip ,also will adjust cardizem as per afib rate. Severe sepsis secondary to above. acute Lactic acidosis resolved with ivf. sepsis seems resolved. Renal failure (no previous history of renal failure or baseline creatinine found) and acute lactic acidosis. resolved with IV fluids. Avoid nephrotoxic agents. hypokalemia/hypomagnesemia /hypocalcemia : Hypokalemia and hypomagnesemia repleted and resolved(possible related diarrhea). The bicarb is also possibly related to diarrhea, bicarb replacement added. boderline calcium ,elevated pth ,low vitamin d in seetting of possible ckd 3: will add vitamin d. nephrology followup. Elevated troponin-flat,thought to be Likely demand ischemia due to tachycardia. echo:. Technically limited study despite use of contrast agent 2. Normal LV ejection fraction of 55-60% with impaired relaxation filling pattern 3. Mildly dilated left atrium 4. Poorly visualized cardiac valves with moderate mitral calcification with cardiac valvular Dopplers within normal limits 5. Normal RV systolic pressure DVT prophylaxis: Heparin subcut acute hypoxic respiratory failure possible secondary to pneumonia , Afib , multiple electrolytic abnormalities:need continuous high flow oxygen, Patient need broad-spectrum IV antibiotics, renal function electrolyte monitoring as well as patient is currently oxygen dependent due to acute hypoxemic respiratory failure,also need cardiac workup for afib and amiodarone drip and tele monitering Quality Stroke Does the patient have a stroke diagnosis?: No VTE Prior VTE?: No VTE Risk Level:: Medical - moderate - high VTE Device Contraindication: Treatment Not Indicated VTE Drug Contraindication: N/A - Med Ordered
[2023-06-18] MEDS: Potassium Chloride Packet 20 MEQ PACKET PO (12:55)
[2023-06-18] MEDS: dilTIAZem HCL 30 MG TABLET PO ×3 (12:55→21:00)
--- NOTE | 2023-06-18 12:59 | HE.PHANOTE ---
RE AMIODARONE CARDIOLOGY NOTE STATES AMIODARONE TO CONTINUE X1 MORE DAY. AMIODARONE CONTINUED AT MAINTENANCE RATE OF 1 MG/MIN PER DR MCQUEEN AND RN SHAINA HAMMOND NOTIFIED VIA TIGER TEXT.
[2023-06-18] MEDS: Amiodarone HCL 900 MG in 0.9 % Sodium Chloride 500 ML 17.27 MG IVCONT (15:21)
[2023-06-18] MEDS: guaiFENesin 200 MG/10 ML 10 ML LIQUID PO ×2 (18:54→23:58)
[2023-06-18] MEDS: Atorvastatin Calcium 80 MG TABLET PO (21:00)
[2023-06-18] MEDS: vancomycin HCL 750 MG in 0.9 % Sodium Chloride 250 ML 265 MG IV (21:46)
[2023-06-19] VITALS (9 sets, daily range): BP systolic 136–157; BP diastolic 80–88; PULSE 53–107; RESP 18–22; TEMP 36–36.6; O2SAT 93–96
[2023-06-19] MEDS: methylPREDNISolone Sod Succ 40 MG/ML VIAL IVPUSH ×3 (06:26→17:13)
[2023-06-19] MEDS: guaiFENesin 200 MG/10 ML 10 ML LIQUID PO ×4 (06:26→22:05)
[2023-06-19] MEDS: Omeprazole 20 MG CAPSULE.DR PO (06:26)
[2023-06-19 07:07] LABS: Creatinine Clr Calc Pharmacy 54.6; Estimated Glomerular Filt Rate 59
[2023-06-19] MEDS: Albuterol/Iprat 2.5/0.5MG 3 ML AMPUL.NEB INHALE ×3 (07:48→20:29)
[2023-06-19 08:17] LABS: Vancomycin Random 15.4 mcg/mL (15-20)
--- NOTE | 2023-06-19 08:52 | HE.PHANOTE ---
RE: VANCO DOSING Based on trough coming back as 15.4 (predicted to be 14.4) and sCr being 1.2, dose is being continued as 750 mg q12h. Another random is schedule for 06/20/23 @0700.
[2023-06-19] MEDS: Sodium Bicarbonate 650 MG TABLET PO ×4 (09:02→21:55)
[2023-06-19] MEDS: Oseltamivir Phosphate 30 MG CAPSULE PO ×2 (09:02→21:55)
[2023-06-19] MEDS: dilTIAZem HCL 30 MG TABLET PO ×2 (09:02→10:04)
[2023-06-19] MEDS: Apixaban 5 MG TABLET PO ×2 (09:02→21:54)
[2023-06-19] MEDS: Cholecalciferol (Vitamin D3) 25 MCG TABLET PO (09:02)
[2023-06-19] MEDS: amLODIPine Besylate 5 MG TABLET PO (09:03)
[2023-06-19] MEDS: vancomycin HCL 750 MG in 0.9 % Sodium Chloride 250 ML 265 MG IV ×2 (09:03→21:56)
[2023-06-19] MEDS: cefTRIAXone sodium 1 GM in 0.9 % Sodium Chloride 50 ML IV (09:03)
[2023-06-19] MEDS: 0.9 % Sodium Chloride Flush 3 ML SYRINGE IVFLUSH ×3 (09:04→22:05)
[2023-06-19 09:32] LABS: Potassium 3.9 mmol/L (3.3-5.1)
[2023-06-19] MEDS: levalbuterol HCL 1.25 MG/3 ML VIAL.NEB INHALE (09:53)
[2023-06-19] MEDS: Azithromycin 500 MG in 0.9 % Sodium Chloride 250 ML 125 MG IV (10:04)
--- NOTE | 2023-06-19 10:07 | PM.PNCARD ---
Subjective Subjective Date of Service: 06/19/23 Principal diagnosis: Hypoxia, atrial fibrillation. Interval history: Patient states he is feeling okay. No specific cardiac complaints. He is asking to get discharged. Review of Systems Review of Systems Yes all other systems are reviewed and are negative Constitutional: Reports as per HPI and Reports no additional constitutional complaints Eyes: Reports as per HPI and Denies no additional eye complaints Denies system reviewed and no additional complaints, except as documented and Reports as per HPI Cardiovascular: Reports as per HPI, Reports no additional cardiovascular complaints, Denies acrocyanosis, Denies cool extremities, Denies chest pain, Denies leg edema, Denies lightheadedness, Denies palpitations and Denies dyspnea Respiratory: Reports as per HPI, Denies no additional respiratory complaints and Denies dyspnea Gastrointestinal: Reports as per HPI and Denies no additional gastrointestinal complaints Genitourinary: Reports no additional male genitourinary complaints and Reports as per HPI Musculoskeletal: Reports no additional musculoskeletal complaints and Reports as per HPI Skin/Breast: Reports system reviewed and no additional complaints, except as docu Reports system reviewed and no additional complaints, except as documented and Reports as per HPI Psychiatric: Reports no additional psychiatric complaints and Reports as per HPI Endocrine: Reports no additional endocrine complaints, Reports as per HPI and Denies palpitations Hematologic/Lymphatic: Reports no additional hematologic/lymphatic complaints and Reports as per HPI Allergic/Immunologic: Reports no additional allergic/immunologic complaints and Reports as per HPI Physical Exam Vital Signs: Last Vital Signs Temp 97.9 F 06/19/23 07:31 Pulse 107 H 06/19/23 07:49 Resp 18 06/19/23 07:49 BP 154/86 H 06/19/23 07:31 Pulse Ox 93 06/19/23 07:31 O2 Del Method Nasal Cannula 06/19/23 07:31 O2 Flow Rate 7 06/19/23 07:31 FiO2 30 06/19/23 03:42 BMI result Body Mass Index 30.4 Const General: comfortable and no acute distress Orientation/consciousness: patient oriented x3 HEENT Other: Unremarkable Head: Yes normal to inspection Neck Neck: Yes normal visual inspection Chest Chest palpation & inspection: normal inspection of the chest Resp Auscultation: wheezes and diminished lung sounds Cardio Palpation: normal PMI Heart sounds: S1 normal heart sound present, S2 normal heart sound present, no gallops, no murmurs and no rubs GI Palpation (GI): Soft to palpation Back/Spine/Pelvis Other: unremarkable Skin General skin exam: no rashes or lesions noted Neuro General: patient oriented x3 Extrem General: Yes normal to inspection Psych Mental Status: mental status grossly normal Objective Labs and Meds 06/16/23 22:51 06/19/23 06:25 Lab results: Laboratory Results - last 24 hr 06/19/23 06/19/23 06/19/23 06:25 06:42 07:53 Hold Purple Top SEE NOTE Potassium 3.9 Creatinine 1.20 Estim Creat Clear Calc 54.6 Estimated GFR 59 Random Vancomycin 15.4 Progress Note: A&P Assessment and plan (1) Atrial fibrillation with rapid ventricular response: Status: Acute (2) Acute hypoxic respiratory failure: Status: Acute (3) Influenza A: Status: Acute Plan On telemetry, atrial fibrillation at a rate of around 115/Min. Atrial fibrillation is likely due to the acute respiratory issues including influenza. Stop amiodarone drip. We can go up on the diltiazem to 60 mg 4 times a day or even higher. Hold off on the home medications including lisinopril/amlodipine so we can titrate the diltiazem. Anticoagulation. Echocardiogram with LVEF of 55-60%. Moderate mitral annular calcification. Discussed with Dr. Caceres. Time Spent With Patient Time: Total time managing care of this patient today ____ minutes. Progress Note: Quality Stroke Does the patient have a stroke diagnosis?: No Procedures Date of Service Date of Service: 06/19/23
--- NOTE | 2023-06-19 10:36 | MHC.CM.PN ---
Pt. still requiring acute care, he is using supplemental O2, and being treated and monitored for cardiac conditions. DC plan is for him to return to [facility], and [facility] if recommended. CM to follow and assist with DC plan.
[2023-06-19] MEDS: dilTIAZem HCL 60 MG TABLET PO ×3 (12:18→21:55)
--- NOTE | 2023-06-19 14:12 | HO.PM.IMPN ---
Subjective Subjective Date of Service: 06/19/23 Interval History: acute hypoxemic respiratory failure,AFib with RVR Review of Systems sob with minimum excersion, tachycardia Physical Exam Vital Signs: Vital Signs: Last Vital Signs Temp 97.8 F 06/19/23 11:22 Pulse 92 06/19/23 11:22 Resp 22 H 06/19/23 11:22 BP 141/82 H 06/19/23 11:22 Pulse Ox 94 06/19/23 11:22 O2 Del Method Nasal Cannula 06/19/23 11:22 O2 Flow Rate 3 06/19/23 11:22 FiO2 30 06/19/23 03:42 BMI result Body Mass Index 30.4 Appearance: Alert.? Oriented X3. cvs: irregular rythem, [id number] . res: air entry fair ,few rhonchii b/l ,no rales abd: no rebound or guarding ,nt, bs present. ext pulses present , no cyanosis neuro: axo3 , nonfocal. Objective Data Active Medications Acetaminophen (Acetaminophen 325 Mg Tablet) 975 mg PO Q6H PRN PRN Reason: fever and pain Last Admin: 06/16/23 04:49 Dose: 975 mg Documented By: TERESA Albuterol/Ipratropium (Albuterol/Iprat 2.5/0.5mg 3 Ml Ampul.Neb) 3 ml INHALE Q4H [facility] Last Admin: 06/19/23 11:12 Dose: 3 ml Documented By: MONIQUE Albuterol/Ipratropium (Albuterol/Iprat 2.5/0.5mg 3 Ml Ampul.Neb) 3 ml INHALE Q2H PRN PRN Reason: sob Apixaban (Apixaban 5 Mg Tablet) 5 mg PO BID [facility] Last Admin: 06/19/23 09:02 Dose: 5 mg Documented By: ANYA Atorvastatin Calcium (Atorvastatin Calcium 80 Mg Tablet) 80 mg PO BEDTIME [facility] Last Admin: 06/18/23 21:00 Dose: 80 mg Documented By: CHRISTELLE Calcium Carbonate (Calcium Carbonate 500 Mg Tablet) 500 mg PO DAILY [facility] Last Admin: 06/19/23 09:02 Dose: 500 mg Documented By: ANYA Diltiazem HCl (Diltiazem Hcl 60 Mg Tablet) 60 mg PO QID [facility]; Protocol Last Admin: 06/19/23 12:18 Dose: 60 mg Documented By: ANYA Guaifenesin (Guaifenesin 200 Mg/10 Ml 10 Ml Liquid) 10 ml PO Q6H [facility] Last Admin: 06/19/23 10:04 Dose: 10 ml Documented By: GRAYSON Guaifenesin/Codeine Phosphate (Guaifen/Codeine Sf 200/20/10ml 10 Ml Liquid) 5 ml PO Q4H PRN PRN Reason: Cough Last Admin: 06/18/23 16:40 Dose: 5 ml Documented By: ILIANA Hydromorphone HCl (Hydromorphone Hcl 0.5 Mg/0.5 Ml Syringe) 0.5 mg IVPUSH Q4H PRN; Protocol PRN Reason: distress Last Admin: 06/16/23 16:48 Dose: 0.5 mg Documented By: MARIA DE JESUS Ceftriaxone Sodium 1 gm/ (Sodium Chloride) 50 mls @ 100 mls/hr IV DAILY [facility] Last Infusion: 06/19/23 09:49 Dose: Infused Documented By: ANYA Azithromycin 500 mg/ Sodium (Chloride) 250 mls @ 125 mls/hr IV DAILY [facility] Last Infusion: 06/19/23 12:20 Dose: Infused Documented By: ANYA Vancomycin HCl 750 mg/ Sodium (Chloride) 265 mls @ 265 mls/hr IV Q12H [facility] Last Infusion: 06/19/23 10:13 Dose: Infused Documented By: ANYA Methylprednisolone Sodium Succinate (Methylprednisolone Sod Succ 40 Mg/Ml Vial) 40 mg IVPUSH Q6H [facility] Last Admin: 06/19/23 12:18 Dose: 40 mg Documented By: ANYA Omeprazole (Omeprazole 20 Mg Capsule.Dr) 20 mg PO DAILY@0630 [facility] Last Admin: 06/19/23 06:26 Dose: 20 mg Documented By: CHRISTELLE Oseltamivir Phosphate (Oseltamivir Phosphate 30 Mg Capsule) 30 mg PO BID [facility] Last Admin: 06/19/23 09:02 Dose: 30 mg Documented By: ANYA Pharmacy Consult (Consult Rx Vancomycin Dosing) 1 each MISCELLANE DAILY PRN PRN Reason: Consult order Sodium Bicarbonate (Sodium Bicarbonate 650 Mg Tablet) 650 mg PO QID [facility] Last Admin: 06/19/23 12:18 Dose: 650 mg Documented By: ANYA Sodium Chloride (0.9 % Sodium Chloride Flush 3 Ml Syringe) 3 ml IVFLUSH QSHIFT [facility] Last Admin: 06/19/23 09:04 Dose: 3 ml Documented By: ANYA Vitamin D (Cholecalciferol (Vitamin D3) 25 Mcg Tablet) 25 mcg PO DAILY [facility] Last Admin: 06/19/23 09:02 Dose: 25 mcg Documented By: ANYA Labs 06/16/23 22:51 06/19/23 06:25 Labs: Laboratory Results - last 24 hr 06/19/23 06/19/23 06/19/23 06:25 06:42 07:53 Hold Purple Top SEE NOTE Estim Creat Clear Calc 54.6 Estimated GFR 59 Random Vancomycin 15.4 Microbiology Microbiology Results: Microbiology 06/13/23 20:26 Blood Culture - Final Blood - Venous No growth after 5 days. 06/13/23 20:26 Blood Culture - Final Blood - Venous No growth after 5 days. Assessment and Plan (1) Atrial fibrillation with rapid ventricular response: Status: Acute (2) ARDS (adult respiratory distress syndrome): Status: Acute (3) Elevated troponin: Status: Acute (4) ENEDELIA (acute kidney injury): Status: Acute (5) Acute hypoxic respiratory failure: Status: Acute Assessment and Plan: Day-5: 77 years old man admitted with: Acute hypoxic respiratory failure possible secondary to pneumonia due to influenza + likely superimposed bacterial infection. fever resolved ,blood cultures neg@48hrs ,bnp normal. vanco trough 15.4 nasal mrsa screen plan: continue IV antibiotic therapy with azithromycin and ceftriaxone and vanco intiated on 06/14, Tamiflu X 5 days, bronchodilator therapy,iv solumedrole. moniter vanco trough ,renal function/electrolytes,moniter Pulse oximetry, supplemental oxygen with HF to keep oxygen saturation > 90%,tapered from high flow to 3 liter. pulmonary followup new onset afib: hr still elevated trops flat due to demand afib/repiratory failure needed amiodarone drip,started on po cardizem. echo: Normal LV ejection fraction of 55-60% with impaired relaxation filling pattern cardiology followup noted -not responded to amiodarone ,adjusted cardizem to 60 mg q6hr,if hr does not get controlled -will consider adding digoxin. Severe sepsis secondary to above. acute Lactic acidosis resolved with ivf. sepsis seems resolved. Renal failure (no previous history of renal failure or baseline creatinine found) and acute lactic acidosis. resolved with IV fluids. Avoid nephrotoxic agents. hypokalemia/hypomagnesemia /hypocalcemia : Hypokalemia and hypomagnesemia repleted and resolved(possible related diarrhea). The bicarb is also possibly related to diarrhea,on bicarb replacement . boderline calcium ,elevated pth ,low vitamin d in seetting of possible ckd 3: added vitamin d. nephrology followup. Elevated troponin-flat,thought to be Likely demand ischemia due to tachycardia. echo:. Technically limited study despite use of contrast agent 2. Normal LV ejection fraction of 55-60% with impaired relaxation filling pattern 3. Mildly dilated left atrium 4. Poorly visualized cardiac valves with moderate mitral calcification with cardiac valvular Dopplers within normal limits 5. Normal RV systolic pressure DVT prophylaxis: Heparin subcut acute hypoxic respiratory failure possible secondary to pneumonia , Afib , multiple electrolytic abnormalities:need continuous high flow oxygen, Patient need broad-spectrum IV antibiotics, renal function electrolyte monitoring as well as patient is currently oxygen dependent due to acute hypoxemic respiratory failure,also need cardiac workup for afib -ruthann hr rate control med adjustment and tele monitering Quality Stroke Does the patient have a stroke diagnosis?: No VTE Prior VTE?: No VTE Risk Level:: Medical - moderate - high VTE Device Contraindication: Treatment Not Indicated VTE Drug Contraindication: N/A - Med Ordered
[2023-06-19 15:47] LABS: Vitamin D 25-OH, D2 <4 ng/mL; Vitamin D 25-OH, D3 20 ng/mL; Vitamin D 25-OH, Total 20 ng/mL (30-100)
--- NOTE | 2023-06-19 16:19 | P.PNPL_ITS ---
Subjective Subjective Date of Service: 06/19/23 Principal diagnosis: Hypoxia, atrial fibrillation. Interval history: Respiratory status is significantly improving. Now on 2 L of supplemental oxygen. Objective Data Labs 06/16/23 22:51 06/19/23 06:25 Labs: Laboratory Results - last 24 hr 06/15/23 06/19/23 06/19/23 16:59 06:25 06:42 Hold Purple Top SEE NOTE Potassium 3.9 Creatinine 1.20 Estim Creat Clear Calc 54.6 Estimated GFR 59 25-OH Vitamin D Total 20 L 25-Hydroxy Vitamin D2 <4 25-Hydroxy Vitamin D3 20 Random Vancomycin 06/19/23 07:53 Hold Purple Top Potassium Creatinine Estim Creat Clear Calc Estimated GFR 25-OH Vitamin D Total 25-Hydroxy Vitamin D2 25-Hydroxy Vitamin D3 Random Vancomycin 15.4 Microbiology Microbiology Results: Microbiology 06/13/23 20:26 Blood - Venous Blood Culture - Final No growth after 5 days. 06/13/23 20:26 Blood - Venous Blood Culture - Final No growth after 5 days. Physical Exam 2 Vital Signs: Vital Signs: Last Vital Signs Temp 97.8 F 06/19/23 11:22 Pulse 92 06/19/23 11:22 Resp 22 H 06/19/23 11:22 BP 141/82 H 06/19/23 11:22 Pulse Ox 94 06/19/23 11:22 O2 Del Method Nasal Cannula 06/19/23 11:22 O2 Flow Rate 3 06/19/23 11:22 FiO2 30 06/19/23 03:42 BMI result Body Mass Index 30.4 Const: General: no acute distress, alert and awake Eyes: Sclerae: sclerae normal EOM: EOMs intact bilaterally Neck: Neck: Yes no lymphadenopathy, Yes trachea midline and Yes supple Resp: Effort & Inspection: normal respiratory effort and no respiratory distress Auscultation: clear to auscultation bilaterally Cardio: Rate: regular rate Rhythm: regular rhythm Heart sounds: no gallops, no murmurs and no rubs GI: Palpation (GI): Soft to palpation and Other GI palpation findings present ( Nontender) Auscultation: normal bowel sounds Extrem: General: No clubbing, No cyanosis and Yes edema (1+ bilateral) Procedures Date of Service Date of Service: 06/19/23 Assessment and Plan Assessment and plan (1) Influenza A: Status: Acute (2) Acute hypoxic respiratory failure: Status: Acute Plan Impression: 77-year-old gentleman hospitalized with influenza and possible superimposed bacterial infection, now improving slowly. Also underlying AFib with diastolic dysfunction resulting in fluid retention. Recommendations: At this time no concern for MRSA pneumonia, consider discontinuation of vancomycin. Agree with empiric ceftriaxone and azithromycin for community-acquired pneumonia superimposed on underlying influenza. Consider a dose of diuretic. Time Spent With Patient Time: Total time managing care of this patient today ____ minutes. Progress Note: Quality Stroke Does the patient have a stroke diagnosis?: No
--- NOTE | 2023-06-19 16:44 | P.CNID_ITS ---
History of Present Illness Data of Consult Service Date: 06/19/23 Requesting physician: Pavel Caceres Primary Care Provider: Odell Velasco MD HPI Reason for consult: pneumonia/COPD He presents with shortness of breath few days. He has COPD listed and no home oxygen. He is off high flow. Review of Systems 2 Review of Systems: Yes all other systems are reviewed and are negative [facility] Past Medical History Medical History GERD (gastroesophageal reflux disease) Hypercholesteremia Hypertension Family History Family history: reviewed and not pertinent Social History Social History Household Members: None Household Members Other:: Pt from [facility] Housing: Alf Do you presently have visiting nurse or other home services: No Patient Tobacco Use Status: Never used Tobacco Advance Directives Date on File: 06/14/23 service: No Meds Allergies Allergy/AdvReac Type Severity Reaction Status Date / Time atorvastatin Allergy Unknown itching Verified 11/20/19 00:00 Active Medications: Current Medications Acetaminophen (Acetaminophen 325 Mg Tablet) 975 mg PO Q6H PRN PRN Reason: fever and pain Last Admin: 06/16/23 04:49 Dose: 975 mg Albuterol/Ipratropium (Albuterol/Iprat 2.5/0.5mg 3 Ml Ampul.Neb) 3 ml INHALE Q4H [facility] Last Admin: 06/19/23 15:15 Dose: Not Given Albuterol/Ipratropium (Albuterol/Iprat 2.5/0.5mg 3 Ml Ampul.Neb) 3 ml INHALE Q2H PRN PRN Reason: sob Apixaban (Apixaban 5 Mg Tablet) 5 mg PO BID [facility] Last Admin: 06/19/23 09:02 Dose: 5 mg Atorvastatin Calcium (Atorvastatin Calcium 80 Mg Tablet) 80 mg PO BEDTIME [facility] Last Admin: 06/18/23 21:00 Dose: 80 mg Calcium Carbonate (Calcium Carbonate 500 Mg Tablet) 500 mg PO DAILY [facility] Last Admin: 06/19/23 09:02 Dose: 500 mg Diltiazem HCl (Diltiazem Hcl 60 Mg Tablet) 60 mg PO QID [facility]; Protocol Last Admin: 06/19/23 12:18 Dose: 60 mg Guaifenesin (Guaifenesin 200 Mg/10 Ml 10 Ml Liquid) 10 ml PO Q6H [facility] Last Admin: 06/19/23 10:04 Dose: 10 ml Guaifenesin/Codeine Phosphate (Guaifen/Codeine Sf 200/20/10ml 10 Ml Liquid) 5 ml PO Q4H PRN PRN Reason: Cough Last Admin: 06/18/23 16:40 Dose: 5 ml Hydromorphone HCl (Hydromorphone Hcl 0.5 Mg/0.5 Ml Syringe) 0.5 mg IVPUSH Q4H PRN; Protocol PRN Reason: distress Last Admin: 06/16/23 16:48 Dose: 0.5 mg Ceftriaxone Sodium 1 gm/ (Sodium Chloride) 50 mls @ 100 mls/hr IV DAILY [facility] Last Infusion: 06/19/23 09:49 Dose: Infused Azithromycin 500 mg/ Sodium (Chloride) 250 mls @ 125 mls/hr IV DAILY [facility] Last Infusion: 06/19/23 12:20 Dose: Infused Vancomycin HCl 750 mg/ Sodium (Chloride) 265 mls @ 265 mls/hr IV Q12H [facility] Last Infusion: 06/19/23 10:13 Dose: Infused Methylprednisolone Sodium Succinate (Methylprednisolone Sod Succ 40 Mg/Ml Vial) 40 mg IVPUSH Q6H [facility] Last Admin: 06/19/23 12:18 Dose: 40 mg Omeprazole (Omeprazole 20 Mg Capsule.Dr) 20 mg PO DAILY@0630 [facility] Last Admin: 06/19/23 06:26 Dose: 20 mg Oseltamivir Phosphate (Oseltamivir Phosphate 30 Mg Capsule) 30 mg PO BID [facility] Last Admin: 06/19/23 09:02 Dose: 30 mg Pharmacy Consult (Consult Rx Vancomycin Dosing) 1 each MISCELLANE DAILY PRN PRN Reason: Consult order Sodium Bicarbonate (Sodium Bicarbonate 650 Mg Tablet) 650 mg PO QID [facility] Last Admin: 06/19/23 12:18 Dose: 650 mg Sodium Chloride (0.9 % Sodium Chloride Flush 3 Ml Syringe) 3 ml IVFLUSH QSHIFT [facility] Last Admin: 06/19/23 09:04 Dose: 3 ml Vitamin D (Cholecalciferol (Vitamin D3) 25 Mcg Tablet) 25 mcg PO DAILY [facility] Last Admin: 06/19/23 09:02 Dose: 25 mcg Home Medications Medication Instructions Recorded Confirmed Last Taken Type amlodipine 5 mg tablet 5 mg PO DAILY 06/14/23 06/14/23 06/12/23 History lisinopril 30 mg tablet 30 mg PO DAILY 06/14/23 06/14/23 06/12/23 History pantoprazole 20 mg tablet,delayed 20 mg PO DAILY 06/14/23 06/14/23 06/12/23 History release rosuvastatin 20 mg tablet 20 mg PO BEDTIME 06/14/23 06/14/23 06/12/23 History tramadol 50 mg tablet 50 mg PO Q6H PRN Pain 06/14/23 06/14/23 Unknown History Physical Exam 2 Vital Signs: Vital Signs: Last Vital Signs Temp 97.8 F 06/19/23 11:22 Pulse 92 06/19/23 11:22 Resp 22 H 06/19/23 11:22 BP 141/82 H 06/19/23 11:22 Pulse Ox 94 06/19/23 11:22 O2 Del Method Nasal Cannula 06/19/23 11:22 O2 Flow Rate 3 06/19/23 11:22 FiO2 30 06/19/23 03:42 BMI result Body Mass Index 30.4 Const: General: cooperative HEENT: Head: Yes normal to inspection Face and sinus: Yes normal facial exam Mouth: Normal oral and palatal mucosa present Teeth and gingiva: d entition normal Eyes: General: appearance normal, both eyes and all related structures P upils: Equal, round and reactive pupils present Resp: Other: constant coughing Effort & Inspection: normal respiratory effort Cardio: Rate: regular rate Rhythm: regular rhythm GI: Palpation (GI): Soft to palpation and nontender : General: Yes no CVA tenderness Back/Spine/Pelvis: Back: no CVA tenderness Skin: General skin exam: no rashes or lesions noted Neuro: General: moves all extremities Cranial nerves: Yes Equal, round and reactive pupils present Extrem: General: Yes normal to inspection Psych: Appearance: grossly normal Results Labs 06/16/23 22:51 06/19/23 06:25 Labs: BMP 06/19/23 06:25 Potassium 3.9 Creatinine 1.20 Microbiology Microbiology Results: Microbiology 06/13/23 20:26 Blood - Venous Blood Culture - Final No growth after 5 days. 06/13/23 20:26 Blood - Venous Blood Culture - Final No growth after 5 days. Assessment and Plan (1) ARDS (adult respiratory distress syndrome): Status: Acute (2) ENEDELIA (acute kidney injury): Status: Acute (3) Influenza A: Status: Acute (4) Pneumonia: Qualifiers: Laterality: left Lung location: lower lobe of lung Pneumonia type: due to unspecified organism Qualified Code(s): J18.9 - Pneumonia, unspecified organism Status: Acute Plan Stop Vancomycin if MRSA swab negative. Likely po Doxycycline for 7- 10 days when feels better.
[2023-06-19 16:51] LABS: MRSA Nasal PCR NEGATIVE (Negative); SA Nasal PCR NEGATIVE (Negative)
[2023-06-19] MEDS: Atorvastatin Calcium 80 MG TABLET PO (21:54)
[2023-06-20] MEDS: methylPREDNISolone Sod Succ 40 MG/ML VIAL IVPUSH ×4 (00:06→19:55)
[2023-06-20 03:19] VITALS: BP 160/82; PULSE 99; RESP 20; TEMP 36.6; O2SAT 93
[2023-06-20] MEDS: Omeprazole 20 MG CAPSULE.DR PO (06:01)
[2023-06-20] MEDS: guaiFENesin 200 MG/10 ML 10 ML LIQUID PO ×3 (06:01→15:24)
[2023-06-20 07:44] VITALS: BP 139/96; PULSE 107; RESP 18; TEMP 37.1; O2SAT 92
[2023-06-20 07:50] LABS: Vancomycin Random 14.5 mcg/mL (15-20)
[2023-06-20 07:51] LABS: Creatinine Clr Calc Pharmacy 54.6; Estimated Glomerular Filt Rate 59
--- NOTE | 2023-06-20 08:03 | HE.PHANOTE ---
VANCOMYCIN DOSING BASED ON SCR OF 1.2 AND TROUGH OF 14.5 DOSE CONTINUED AT 750 Q 12H. NEXT TROUGH 06/21@1900
[2023-06-20] MEDS: 0.9 % Sodium Chloride Flush 3 ML SYRINGE IVFLUSH ×3 (08:10→19:56)
[2023-06-20] MEDS: cefTRIAXone sodium 1 GM in 0.9 % Sodium Chloride 50 ML IV (08:12)
[2023-06-20] MEDS: vancomycin HCL 750 MG in 0.9 % Sodium Chloride 250 ML 265 MG IV (08:12)
[2023-06-20] MEDS: Sodium Bicarbonate 650 MG TABLET PO ×4 (08:13→19:55)
[2023-06-20] MEDS: dilTIAZem HCL 60 MG TABLET PO ×2 (08:13→12:00)
[2023-06-20] MEDS: Oseltamivir Phosphate 30 MG CAPSULE PO (08:13)
[2023-06-20] MEDS: Apixaban 5 MG TABLET PO ×2 (08:13→19:55)
[2023-06-20] MEDS: Azithromycin 500 MG in 0.9 % Sodium Chloride 250 ML 125 MG IV (08:13)
[2023-06-20] MEDS: Cholecalciferol (Vitamin D3) 25 MCG TABLET PO (08:13)
[2023-06-20] MEDS: Doxycycline Hyclate 100 MG in 0.9 % Sodium Chloride 250 ML 166.67 MG IV (08:50)
--- NOTE | 2023-06-20 11:13 | HO.WOUND ---
Wound Consult: Initial 77yr old?[place] [facility] [place] See progress notes and H&P for detailed history.? Wound consult placed for Coccyx Wound POA.? Patient agreeable to assessment and photo documentation.?Of note direct care team patient has been reluctant to care and repositions. Educated patient on importance of off loading coccyx and sacrum and keeping skin dry -patient reports understanding but refused off loading position. Recommend discontinuing foam dressing to sacrum at this time as patients incontinence level saturated the foam dressing and trapped against patient skin. Recommend Triad use alone at this time in addition to YASMEEN mattress, turning and repositioning to off load sacrum and coccyx and use of waffle cushion when up to chair. Limit sit time to 2 hours increments to prevent further tissue breakdown. Sacrum / Coccyx Etiology: ??MASD-IAD (Moisture Associated Skin Damage - Incontinence Associated Dermatitis) Present on Admission as intergluteal breakdown a base of fold Wound Bed: scattered areas of partial thickness tissue loss - thin yellow slough noted Drainage / Odor: none noted at this time Edges: ? macerated and defined [place] wound: ?MASD - red blanchable erythema - with mirrored hyperpigmentation noted No Induration, Fluctuance or Warmth noted Pain: pt denies Goals of Treatment: ? Triad to protect from moisture and friction and allow for moist wound healing - off load pressure to prevent further breakdown Recommendations: 1. Turn and Reposition every 2 hours and as needed for patient comfort.? Use pillows or wedges to support off loading positions. Use waffle cushion when up to chair limit sit time to 2 hour increments. 2. Off Load all bony prominences with use of pillows and heel boots if needed.? Apply Preventative foams where needed. ? 3. Monitor for incontinence and moisture control, use barrier creams when needed for prevention and treatment. 4. Provide adequate and supplemental nutrition.? 5. Order low air loss mattress. 6. Sacrum and Coccyx - Off Load Pressure - Cleanse with PH balance spray or wipes, pat dry. ?Apply thin layer of Triad to wound bed - only pat and dab no scrub and rub when soiling occurs. Reapply thin layer PRN after each episode of incontinence. Re-consult wound care Nurse for wound deterioration or wound changes.
[2023-06-20 12:00] VITALS: BP 137/89; PULSE 95; RESP 16; TEMP 36.3; O2SAT 92
--- NOTE | 2023-06-20 12:39 | MHC.CM.PN ---
Second IMM given on 06/20/23 in anticipation of DC 06/21/23, pending provider's order. CM met with pt. to discuss PT rec for [facility]. He adamantly refused to go to [facility] and insists on going home to [facility]. Will put in referral for VNA. Message left for nurse at to ask if they can pick him up and bring clothing for him. Message left with Dtr to request copy of HCP. CM to follow and continue to assist with DC plan.
--- NOTE | 2023-06-20 14:38 | HO.PM.IMPN ---
Subjective Subjective Date of Service: 06/20/23 Interval History: HR improved mostly off O2 except with ambulation dyspnea improved Review of Systems Review of Systems: Yes all other systems are reviewed and are negative Physical Exam Vital Signs: Vital Signs: Last Vital Signs Temp 97.3 F 06/20/23 12:00 Pulse 95 06/20/23 12:00 Resp 16 06/20/23 12:00 BP 137/89 06/20/23 12:00 Pulse Ox 92 06/20/23 12:00 O2 Del Method Nasal Cannula 06/20/23 12:00 O2 Flow Rate 2 06/20/23 12:00 FiO2 30 06/19/23 03:42 BMI result Body Mass Index 30.4 Gen: in no acute distress HEENT: sclera anicteric, moist mucus membranes Neck: supple Lungs: diminished Heart: irregular, no murmurs Abd: soft, non-tender, non-distended Ext: no edema Skin: warm/well-perfused Neuro: alert and oriented x3, no focal findings Psych: appropriate affect Objective Data Active Medications Acetaminophen (Acetaminophen 325 Mg Tablet) 975 mg PO Q6H PRN PRN Reason: fever and pain Last Admin: 06/16/23 04:49 Dose: 975 mg Documented By: TERESA Albuterol/Ipratropium (Albuterol/Iprat 2.5/0.5mg 3 Ml Ampul.Neb) 3 ml INHALE Q2H PRN PRN Reason: sob Apixaban (Apixaban 5 Mg Tablet) 5 mg PO BID [facility] Last Admin: 06/20/23 08:13 Dose: 5 mg Documented By: HANK Atorvastatin Calcium (Atorvastatin Calcium 80 Mg Tablet) 80 mg PO BEDTIME [facility] Last Admin: 06/19/23 21:54 Dose: 80 mg Documented By: CHRISTELLE Calcium Carbonate (Calcium Carbonate 500 Mg Tablet) 500 mg PO DAILY [facility] Last Admin: 06/20/23 08:13 Dose: 500 mg Documented By: HANK Diltiazem HCl (Diltiazem Hcl Cd 240 Mg Cap.Er.Deg) 240 mg PO DAILY [facility]; Protocol Guaifenesin (Guaifenesin 200 Mg/10 Ml 10 Ml Liquid) 10 ml PO Q6H [facility] Last Admin: 06/20/23 10:26 Dose: 10 ml Documented By: HANK Guaifenesin/Codeine Phosphate (Guaifen/Codeine Sf 200/20/10ml 10 Ml Liquid) 5 ml PO Q4H PRN PRN Reason: Cough Last Admin: 06/18/23 16:40 Dose: 5 ml Documented By: ILIANA Hydromorphone HCl (Hydromorphone Hcl 0.5 Mg/0.5 Ml Syringe) 0.5 mg IVPUSH Q4H PRN; Protocol PRN Reason: distress Last Admin: 06/16/23 16:48 Dose: 0.5 mg Documented By: MARIA DE JESUS Ceftriaxone Sodium 1 gm/ (Sodium Chloride) 50 mls @ 100 mls/hr IV DAILY [facility] Last Infusion: 06/20/23 08:46 Dose: Infused Documented By: HANK Doxycycline Hyclate 100 mg/ (Sodium Chloride) 250 mls @ 166.67 mls/hr IV Q12H [facility] Last Infusion: 06/20/23 10:27 Dose: Infused Documented By: HANK Methylprednisolone Sodium Succinate (Methylprednisolone Sod Succ 40 Mg/Ml Vial) 40 mg IVPUSH Q12H [facility] Last Admin: 06/20/23 08:50 Dose: 40 mg Documented By: HANK Omeprazole (Omeprazole 20 Mg Capsule.) 20 mg PO DAILY@0630 [facility] Last Admin: 06/20/23 06:01 Dose: 20 mg Documented By: CHRISTELLE Oseltamivir Phosphate (Oseltamivir Phosphate 30 Mg Capsule) 30 mg PO BID [facility] Last Admin: 06/20/23 08:13 Dose: 30 mg Documented By: HANK Sodium Bicarbonate (Sodium Bicarbonate 650 Mg Tablet) 650 mg PO QID [facility] Last Admin: 06/20/23 12:00 Dose: 650 mg Documented By: HANK Sodium Chloride (0.9 % Sodium Chloride Flush 3 Ml Syringe) 3 ml IVFLUSH QSHIFT [facility] Last Admin: 06/20/23 08:10 Dose: 3 ml Documented By: HANK Vitamin D (Cholecalciferol (Vitamin D3) 25 Mcg Tablet) 25 mcg PO DAILY [facility] Last Admin: 06/20/23 08:13 Dose: 25 mcg Documented By: HANK Labs 06/16/23 22:51 06/20/23 07:17 Labs: Laboratory Results - last 24 hr 02/06/19/23 06/20/23 16:59 14:05 07:17 Hold Purple Top SEE NOTE Estim Creat Clear Calc 54.6 Estimated GFR 59 25-OH Vitamin D Total 20 L 25-Hydroxy Vitamin D2 <4 25-Hydroxy Vitamin D3 20 Nasal Screen MRSA (PCR) NEGATIVE Nasal S. aureus Screen NEGATIVE Nasal MRSA/S.aureus Interp SEE NOTE Random Vancomycin 14.5 L Assessment and Plan (1) Atrial fibrillation with rapid ventricular response: Status: Acute (2) ARDS (adult respiratory distress syndrome): Status: Acute (3) Elevated troponin: Status: Acute (4) ENEDELIA (acute kidney injury): Status: Acute (5) Acute hypoxic respiratory failure: Status: Acute Assessment and Plan: d8 77yo M sent in from [facility] due to multiple falls and confusion presented with fever, tachycardia, tachypnea, lactic acidosis, ENEDELIA admitted for hypoxia due to influenza A + pneumonia acute hypoxic rep failure + severe sepsis due to influenza + pneumonia - ceftriaxone 06/14- - azithromycin 06/14-06/20, doxycycline - - vancomycin 06/14-06/20, MRSA negative so vancomycin discontinued - completed >5d of oseltamivir, will discontinue - wean steroids, was on 40 mg of IV methylprednisolone q6h, will change to q12h starting today - lactic acidosis resolved new-onset AF/RVR - amiodarone gtt -> PO diltiazem; change 60 mg q6h to 240 mg q24h - apixaban - TTE 06/15/23: 1. Technically limited study despite use of contrast agent 2. Normal LV ejection fraction of 55-60% with impaired relaxation filling pattern 3. Mildly dilated left atrium 4. Poorly visualized cardiac valves with moderate mitral calcification with cardiac valvular Dopplers within normal limits 5. Normal RV systolic pressure prerenal ENEDELIA - resolved with IV fluid hydration hypoK hypoMg - repleted, resolved possible secondary hyperPTH - Nephrology outpt follow-up VTE ppx - apixaban dispo - [facility] recommended In my clinical judgment, the patient requires continued inpatient hospitalization for the following reasons: hypoxia Total time managing care of this patient today: 45 minutes. Quality Stroke Does the patient have a stroke diagnosis?: No VTE Prior VTE?: No VTE Risk Level:: Medical - moderate - high VTE Device Contraindication: Treatment Not Indicated VTE Drug Contraindication: N/A - Med Ordered
[2023-06-20] MEDS: dilTIAZem HCL CD 240 MG CAP.ER.DEG PO (15:24)
[2023-06-20 16:00] VITALS: BP 178/80; PULSE 108; RESP 18; TEMP 36.3; O2SAT 90
--- NOTE | 2023-06-20 16:19 | P.PNPL_ITS ---
Subjective Subjective Date of Service: 06/20/23 Principal diagnosis: Hypoxia, atrial fibrillation. Interval history: Titrated off supplemental oxygen. Objective Data Labs 06/16/23 22:51 06/20/23 07:17 Labs: Laboratory Results - last 24 hr 06/19/23 06/20/23 14:05 07:17 Hold Purple Top SEE NOTE Creatinine 1.20 Estim Creat Clear Calc 54.6 Estimated GFR 59 Nasal Screen MRSA (PCR) NEGATIVE Nasal S. aureus Screen NEGATIVE Nasal MRSA/S.aureus Interp SEE NOTE Random Vancomycin 14.5 L Microbiology Microbiology Results: Microbiology 06/13/23 20:26 Blood - Venous Blood Culture - Final No growth after 5 days. 06/13/23 20:26 Blood - Venous Blood Culture - Final No growth after 5 days. Physical Exam 2 Vital Signs: Vital Signs: Last Vital Signs Temp 97.3 F 06/20/23 16:00 Pulse 108 H 06/20/23 16:00 Resp 18 06/20/23 16:00 BP 178/80 H 06/20/23 16:00 Pulse Ox 90 L 06/20/23 16:00 O2 Del Method Nasal Cannula 06/20/23 16:00 O2 Flow Rate 2 06/20/23 16:00 FiO2 30 06/19/23 03:42 BMI result Body Mass Index 30.4 Const: General: no acute distress, alert and awake Eyes: Sclerae: sclerae normal EOM: EOMs intact bilaterally Neck: Neck: Yes no lymphadenopathy, Yes trachea midline and Yes supple Resp: Effort & Inspection: normal respiratory effort and no respiratory distress Auscultation: clear to auscultation bilaterally Cardio: Rate: tachycardic Rhythm: regular rhythm Heart sounds: no gallops, no murmurs and no rubs GI: Palpation (GI): Soft to palpation and Other GI palpation findings present ( Nontender) Auscultation: normal bowel sounds Extrem: General: Yes no pedal edema, No clubbing and No cyanosis Procedures Date of Service Date of Service: 06/20/23 Assessment and Plan Assessment and plan (1) Influenza A: Status: Acute (2) Pneumonia: Status: Acute Plan Impression: 77-year-old gentleman hospitalized with influenza and possible superimposed bacterial infection, now improving slowly. Also underlying AFib with diastolic dysfunction resulting in fluid retention. Recommendations: At this time no concern for MRSA pneumonia. Suggest additional p.o. CAP coverage for next 7 days. Consider a dose of diuretic. Taper off prednisone. Time Spent With Patient Time: Total time managing care of this patient today ____ minutes. Progress Note: Quality Stroke Does the patient have a stroke diagnosis?: No
[2023-06-20] MEDS: Atorvastatin Calcium 80 MG TABLET PO (19:55)
[2023-06-20] MEDS: Doxycycline Monohydrate 100 MG CAPSULE PO (19:55)
[2023-06-20] MEDS: guaiFEN/Codeine SF 200/20/10ML 10 ML LIQUID 5 ML PO (19:55)
[2023-06-20 20:00] VITALS: BP 153/81; PULSE 86; RESP 16; TEMP 36.2; O2SAT 94
[2023-06-20 23:52] VITALS: BP 162/97; PULSE 100; RESP 20; TEMP 36.2; O2SAT 94
[2023-06-21 03:50] VITALS: BP 140/85; PULSE 102; RESP 20; TEMP 36.1; O2SAT 93
[2023-06-21 07:30] VITALS: BP 153/96; PULSE 115; RESP 20; TEMP 37.1; O2SAT 92
[2023-06-21] MEDS: Sodium Bicarbonate 650 MG TABLET PO ×4 (07:47→20:48)
[2023-06-21] MEDS: dilTIAZem HCL CD 240 MG CAP.ER.DEG PO (07:47)
[2023-06-21] MEDS: guaiFEN/Codeine SF 200/20/10ML 10 ML LIQUID 5 ML PO (07:47)
[2023-06-21] MEDS: Cholecalciferol (Vitamin D3) 25 MCG TABLET PO (07:47)
[2023-06-21] MEDS: Doxycycline Monohydrate 100 MG CAPSULE PO ×2 (07:47→20:48)
[2023-06-21] MEDS: 0.9 % Sodium Chloride Flush 3 ML SYRINGE IVFLUSH ×3 (07:51→20:48)
[2023-06-21] MEDS: methylPREDNISolone Sod Succ 40 MG/ML VIAL IVPUSH (07:51)
[2023-06-21] MEDS: Apixaban 5 MG TABLET PO ×2 (08:03→20:48)
[2023-06-21] MEDS: cefTRIAXone sodium 1 GM in 0.9 % Sodium Chloride 50 ML IV (08:03)
[2023-06-21 08:53] LABS: Anion Gap 14 (12-20); Blood Urea Nitrogen 40 mg/dL (9-16); Calcium 7.7 mg/dL (8.4-10.2); Carbon Dioxide 24 mmol/L (22-29); Chloride 107 mmol/L (96-108); Creatinine Clr Calc Pharmacy 57.9; Estimated Glomerular Filt Rate > 60; Glucose Random 199 mg/dL (60-115); Potassium 3.3 mmol/L (3.3-5.1); Sodium 142 mmol/L (135-145)
--- NOTE | 2023-06-21 09:41 | P.PNIM_ITS ---
Subjective Subjective Date of Service: 06/21/23 Interval History: denies chest pain, palpitations, or dyspnea but in AF with ventricular rate 110s-120s Review of Systems Review of Systems: Yes all other systems are reviewed and are negative Physical Exam 2 Vital Signs: Vital Signs: Last Vital Signs Temp 98.7 F 06/21/23 07:30 Pulse 115 H 06/21/23 07:30 Resp 20 06/21/23 07:30 BP 153/96 H 06/21/23 07:30 Pulse Ox 92 06/21/23 07:30 O2 Del Method Room Air 06/21/23 07:30 O2 Flow Rate 2 06/20/23 16:00 FiO2 30 06/19/23 03:42 BMI result Body Mass Index 30.4 Gen: in no acute distress HEENT: sclera anicteric, moist mucus membranes Neck: supple Lungs: diminished Heart: rapid, irregular, no murmurs Abd: soft, non-tender, non-distended Ext: no edema Skin: warm/well-perfused Neuro: alert and oriented x3, no focal findings Psych: appropriate affect Objective Data Active Medications Acetaminophen (Acetaminophen 325 Mg Tablet) 975 mg PO Q6H PRN PRN Reason: fever and pain Last Admin: 06/16/23 04:49 Dose: 975 mg Documented By: TERESA Albuterol/Ipratropium (Albuterol/Iprat 2.5/0.5mg 3 Ml Ampul.Neb) 3 ml INHALE Q2H PRN PRN Reason: sob Apixaban (Apixaban 5 Mg Tablet) 5 mg PO BID [facility] Last Admin: 06/21/23 08:03 Dose: 5 mg Documented By: SYBIL Atorvastatin Calcium (Atorvastatin Calcium 80 Mg Tablet) 80 mg PO BEDTIME [facility] Last Admin: 06/20/23 19:55 Dose: 80 mg Documented By: TERESA Calcium Carbonate (Calcium Carbonate 500 Mg Tablet) 500 mg PO DAILY [facility] Last Admin: 06/21/23 07:47 Dose: 500 mg Documented By: SYBIL Diltiazem HCl (Diltiazem Hcl 60 Mg Tablet) 60 mg PO Q6H [facility]; Protocol Stop: 06/21/23 15:01 Diltiazem HCl (Diltiazem Hcl Cd 180 Mg Cap.Er.24h) 360 mg PO DAILY [facility]; Protocol Doxycycline Monohydrate (Doxycycline Monohydrate 100 Mg Capsule) 100 mg PO Q12H [facility] Last Admin: 06/21/23 07:47 Dose: 100 mg Documented By: SYBIL Guaifenesin (Guaifenesin 200 Mg/10 Ml 10 Ml Liquid) 10 ml PO Q6H [facility] Last Admin: 06/21/23 05:32 Dose: Not Given Documented By: TERESA Non-Admin Reason: Patient Refused Guaifenesin/Codeine Phosphate (Guaifen/Codeine Sf 200/20/10ml 10 Ml Liquid) 5 ml PO Q4H PRN PRN Reason: Cough Last Admin: 06/21/23 07:47 Dose: 5 ml Documented By: SYBIL Hydromorphone HCl (Hydromorphone Hcl 0.5 Mg/0.5 Ml Syringe) 0.5 mg IVPUSH Q4H PRN; Protocol PRN Reason: distress Last Admin: 06/16/23 16:48 Dose: 0.5 mg Documented By: MARIA DE JESUS Ceftriaxone Sodium 1 gm/ (Sodium Chloride) 50 mls @ 100 mls/hr IV DAILY [facility] Last Admin: 06/21/23 08:03 Dose: 100 mls/hr Documented By: SYBIL Omeprazole (Omeprazole 20 Mg Capsule.) 20 mg PO DAILY@0630 [facility] Last Admin: 06/21/23 05:32 Dose: Not Given Documented By: TERESA Non-Admin Reason: Patient Refused Comments: PT STATED Not now. Leave me alone Prednisone (Prednisone 20 Mg Tablet) 40 mg PO DAILY [facility]; Taper Stop: 06/30/23 08:59 Sodium Bicarbonate (Sodium Bicarbonate 650 Mg Tablet) 650 mg PO QID [facility] Last Admin: 06/21/23 07:47 Dose: 650 mg Documented By: SYBIL Sodium Chloride (0.9 % Sodium Chloride Flush 3 Ml Syringe) 3 ml IVFLUSH QSHIFT [facility] Last Admin: 06/21/23 07:51 Dose: 3 ml Documented By: SYBIL Vitamin D (Cholecalciferol (Vitamin D3) 25 Mcg Tablet) 25 mcg PO DAILY [facility] Last Admin: 06/21/23 07:47 Dose: 25 mcg Documented By: SYBIL Labs 06/16/23 22:51 06/21/23 08:30 Labs: Laboratory Results - last 24 hr 06/21/23 08:30 Anion Gap 14 Estim Creat Clear Calc 57.9 Estimated GFR > 60 Random Glucose 199 H Calcium 7.7 L D Magnesium 2.0 Assessment and Plan (1) Atrial fibrillation with rapid ventricular response: Status: Acute (2) ARDS (adult respiratory distress syndrome): Status: Acute (3) Elevated troponin: Status: Acute (4) ENEDELIA (acute kidney injury): Status: Acute (5) Acute hypoxic respiratory failure: Status: Acute Assessment and Plan: d9 77[facility] presented with fever, tachycardia, tachypnea, lactic acidosis, ENEDELIA admitted for hypoxia due to influenza A + pneumonia acute hypoxic rep failure + severe sepsis due to influenza + pneumonia - ceftriaxone 06/14-06/22 - azithromycin 06/14-06/20, doxycycline 06/20-06/22 - vancomycin 06/14-06/20, MRSA negative so vancomycin discontinued - completed >5d of oseltamivir - wean steroids, was on 40 mg of IV methylprednisolone q6h, changed to q12h yesterday and will switch to prednisone taper over 8 days starting tomorrow - hypoxia resolved - lactic acidosis resolved new-onset AF/RVR - amiodarone gtt -> PO diltiazem. Currently 240 CD mg/d. Will give extra 60 mg IR q6h x2 and increase CD to 360 mg/d. - apixaban for CVA prevention - TTE 06/15/23: 1. Technically limited study despite use of contrast agent 2. Normal LV ejection fraction of 55-60% with impaired relaxation filling pattern 3. Mildly dilated left atrium 4. Poorly visualized cardiac valves with moderate mitral calcification with cardiac valvular Dopplers within normal limits 5. Normal RV systolic pressure prerenal ENEDELIA/CKD3 - ENEDELIA resolved with IV fluid hydration possible secondary hyperPTH - will need Nephrology outpt follow-up hypoK hypoMg - repleted, resolved VTE ppx - apixaban dispo - [facility] recommended In my clinical judgment, the patient requires continued inpatient hospitalization for the following reasons: rate control Total time managing care of this patient today: 40 minutes. Quality Stroke Does the patient have a stroke diagnosis?: No VTE Prior VTE?: No VTE Risk Level:: Medical - moderate - high VTE Device Contraindication: Treatment Not Indicated VTE Drug Contraindication: N/A - Med Ordered
[2023-06-21] MEDS: dilTIAZem HCL 60 MG TABLET PO ×2 (10:02→16:16)
[2023-06-21] MEDS: Potassium Chloride Packet 20 MEQ PACKET 40 MEQ PO (10:02)
[2023-06-21 10:31] LABS: B Type Natriuretic Peptide 188 pg/mL (<100)
[2023-06-21 11:21] VITALS: BP 135/92; PULSE 102; RESP 20; TEMP 37.2; O2SAT 92
[2023-06-21] MEDS: guaiFENesin 200 MG/10 ML 10 ML LIQUID PO ×3 (12:02→22:53)
--- NOTE | 2023-06-21 14:25 | MHC.CM.PN ---
EMR reviewed and per MD rounds, pt is not medically cleared for D/C due to rate control. This CM called [facility] for pts HCP, copy faxed here, now on file.
[2023-06-21 15:13] VITALS: BP 163/79; PULSE 84; RESP 20; TEMP 36.1; O2SAT 95
[2023-06-21 20:00] VITALS: BP 164/89; PULSE 91; RESP 20; TEMP 36.6; O2SAT 92
[2023-06-21] MEDS: Atorvastatin Calcium 80 MG TABLET PO (20:48)
[2023-06-21 23:39] VITALS: BP 166/83; PULSE 99; RESP 20; TEMP 36.1; O2SAT 100
[2023-06-22 03:31] VITALS: BP 177/80; PULSE 98; RESP 20; TEMP 36; O2SAT 92
[2023-06-22] MEDS: Omeprazole 20 MG CAPSULE.DR PO (05:33)
[2023-06-22] MEDS: guaiFENesin 200 MG/10 ML 10 ML LIQUID PO ×3 (05:33→17:16)
[2023-06-22 07:17] VITALS: BP 170/100; PULSE 102; RESP 20; TEMP 36.2; O2SAT 92
[2023-06-22] MEDS: dilTIAZem HCL CD 240 MG CAP.ER.DEG 480 MG PO (07:55)
[2023-06-22] MEDS: guaiFEN/Codeine SF 200/20/10ML 10 ML LIQUID 5 ML PO (08:01)
[2023-06-22] MEDS: predniSONE 20 MG TABLET 30 MG PO (08:02)
[2023-06-22] MEDS: Apixaban 5 MG TABLET PO ×2 (08:02→19:51)
[2023-06-22] MEDS: Doxycycline Monohydrate 100 MG CAPSULE PO ×2 (08:02→19:51)
[2023-06-22] MEDS: Cholecalciferol (Vitamin D3) 25 MCG TABLET PO (08:02)
[2023-06-22] MEDS: Sodium Bicarbonate 650 MG TABLET PO ×4 (08:03→19:52)
[2023-06-22] MEDS: 0.9 % Sodium Chloride Flush 3 ML SYRINGE IVFLUSH (08:09)
[2023-06-22] MEDS: cefTRIAXone sodium 1 GM in 0.9 % Sodium Chloride 50 ML IV (08:09)
--- NOTE | 2023-06-22 09:36 | P.PNIM_ITS ---
Subjective Subjective Date of Service: 06/22/23 Interval History: ventricular rate was 90s overnight but now 110s; BP 170/100 wants to go home but appears dyspneic Review of Systems Review of Systems: Yes all other systems are reviewed and are negative Physical Exam 2 Vital Signs: Vital Signs: Last Vital Signs Temp 97.2 F 06/22/23 07:17 Pulse 102 H 06/22/23 07:17 Resp 20 06/22/23 07:17 BP 170/100 H 06/22/23 07:17 Pulse Ox 92 06/22/23 07:17 O2 Del Method Room Air 06/22/23 07:17 O2 Flow Rate 2 06/20/23 16:00 FiO2 30 06/19/23 03:42 BMI result Body Mass Index 30.4 Gen: in no acute distress HEENT: sclera anicteric, moist mucus membranes Neck: supple Lungs: diminished Heart: rapid, irregular, no murmurs Abd: soft, non-tender, non-distended Ext: 1+ BLE edema Skin: warm/well-perfused Neuro: alert and oriented x3, no focal findings Psych: appropriate affect Objective Data Active Medications Acetaminophen (Acetaminophen 325 Mg Tablet) 975 mg PO Q6H PRN PRN Reason: fever and pain Last Admin: 06/16/23 04:49 Dose: 975 mg Documented By: TERESA Albuterol/Ipratropium (Albuterol/Iprat 2.5/0.5mg 3 Ml Ampul.Neb) 3 ml INHALE Q2H PRN PRN Reason: sob Apixaban (Apixaban 5 Mg Tablet) 5 mg PO BID [facility] Last Admin: 06/22/23 08:02 Dose: 5 mg Documented By: SYBIL Atorvastatin Calcium (Atorvastatin Calcium 80 Mg Tablet) 80 mg PO BEDTIME [facility] Last Admin: 06/21/23 20:48 Dose: 80 mg Documented By: YVES Calcium Carbonate (Calcium Carbonate 500 Mg Tablet) 500 mg PO DAILY [facility] Last Admin: 06/22/23 08:02 Dose: 500 mg Documented By: SYBIL Diltiazem HCl (Diltiazem Hcl Cd 240 Mg Cap.Er.Deg) 480 mg PO DAILY [facility]; Protocol Last Admin: 06/22/23 07:55 Dose: 480 mg Documented By: SYBIL Doxycycline Monohydrate (Doxycycline Monohydrate 100 Mg Capsule) 100 mg PO Q12H [facility] Last Admin: 06/22/23 08:02 Dose: 100 mg Documented By: SYBIL Guaifenesin (Guaifenesin 200 Mg/10 Ml 10 Ml Liquid) 10 ml PO Q6H [facility] Last Admin: 06/22/23 05:33 Dose: 10 ml Documented By: YVES Guaifenesin/Codeine Phosphate (Guaifen/Codeine Sf 200/20/10ml 10 Ml Liquid) 5 ml PO Q4H PRN PRN Reason: Cough Last Admin: 06/22/23 08:01 Dose: 5 ml Documented By: SYBIL Hydromorphone HCl (Hydromorphone Hcl 0.5 Mg/0.5 Ml Syringe) 0.5 mg IVPUSH Q4H PRN; Protocol PRN Reason: distress Last Admin: 06/16/23 16:48 Dose: 0.5 mg Documented By: MARIA DE JESUS Ceftriaxone Sodium 1 gm/ (Sodium Chloride) 50 mls @ 100 mls/hr IV DAILY [facility] Last Admin: 06/22/23 08:09 Dose: 100 mls/hr Documented By: SYBIL Omeprazole (Omeprazole 20 Mg Capsule.Dr) 20 mg PO DAILY@0630 [facility] Last Admin: 06/22/23 05:33 Dose: 20 mg Documented By: YVES Prednisone (Prednisone 20 Mg Tablet) 40 mg PO DAILY [facility]; Taper Stop: 06/30/23 08:59 Last Admin: 06/22/23 08:02 Dose: 40 mg Documented By: SYBIL Sodium Bicarbonate (Sodium Bicarbonate 650 Mg Tablet) 650 mg PO QID [facility] Last Admin: 06/22/23 08:03 Dose: 650 mg Documented By: SYBIL Sodium Chloride (0.9 % Sodium Chloride Flush 3 Ml Syringe) 3 ml IVFLUSH QSHIFT [facility] Last Admin: 06/22/23 08:09 Dose: 3 ml Documented By: SYBIL Vitamin D (Cholecalciferol (Vitamin D3) 25 Mcg Tablet) 25 mcg PO DAILY [facility] Last Admin: 06/22/23 08:02 Dose: 25 mcg Documented By: SYBIL Labs 06/16/23 22:51 06/21/23 08:30 Labs: Laboratory Results - last 24 hr 06/21/23 09:58 B-Natriuretic Peptide 188 H Assessment and Plan (1) Atrial fibrillation with rapid ventricular response: Status: Acute (2) ARDS (adult respiratory distress syndrome): Status: Acute (3) Elevated troponin: Status: Acute (4) ENEDELIA (acute kidney injury): Status: Acute (5) Acute hypoxic respiratory failure: Status: Acute Assessment and Plan: d9 77[facility] M [facility] and confusion presented with fever, tachycardia, tachypnea, lactic acidosis, ENEDELIA admitted for hypoxia due to influenza A + pneumonia new-onset AF/RVR acute/chronic HFpEF - diurese with furosemide 20 mg bid, monitor I+O/BNP/lytes - check CXR acute hypoxic rep failure + severe sepsis due to influenza + pneumonia - ceftriaxone 06/14-06/22 - azithromycin 06/14-06/20, doxycycline 06/20-06/22 - vancomycin 06/14-06/20, MRSA negative so vancomycin discontinued - completed >5d of oseltamivir - wean steroids: was on 40 mg of IV methylprednisolone q6h, changed to q12h 06/20 then q24h ; prednisone taper over 8 days -06/28 - hypoxia + lactic acidosis resolved new-onset AF/RVR - amiodarone gtt -> PO diltiazem. needs better rate control; increase diltiazem 360 -> 480 mg daily - apixaban for CVA prevention - TTE 06/15/23: 1. Technically limited study despite use of contrast agent 2. Normal LV ejection fraction of 55-60% with impaired relaxation filling pattern 3. Mildly dilated left atrium 4. Poorly visualized cardiac valves with moderate mitral calcification with cardiac valvular Dopplers within normal limits 5. Normal RV systolic pressure prerenal ENEDELIA/CKD3 - ENEDELIA resolved with IV fluid hydration; monitor with diuresis possible secondary hyperPTH - will need Nephrology outpt follow-up hypoK hypoMg - repleted VTE ppx - apixaban dispo - STR recommended; pt refused; will go back to [facility] In my clinical judgment, the patient requires continued inpatient hospitalization for the following reasons: rate control, diuresis Total time managing care of this patient today: 45 minutes. Quality Stroke Does the patient have a stroke diagnosis?: No VTE Prior VTE?: No VTE Risk Level:: Medical - moderate - high VTE Device Contraindication: Treatment Not Indicated VTE Drug Contraindication: N/A - Med Ordered
[2023-06-22] MEDS: Furosemide 20 MG/2 ML VIAL IVPUSH ×2 (10:16→17:16)
[2023-06-22 11:22] VITALS: BP 144/95; PULSE 86; TEMP 36.6; O2SAT 94
[2023-06-22 15:09] VITALS: BP 141/90; PULSE 103; RESP 20; TEMP 36.4; O2SAT 94
[2023-06-22 19:13] VITALS: BP 153/81; PULSE 92; RESP 18; TEMP 36; O2SAT 93
[2023-06-22] MEDS: Atorvastatin Calcium 80 MG TABLET PO (19:52)
[2023-06-22 23:32] VITALS: BP 143/88; PULSE 107; RESP 21; TEMP 36.3; O2SAT 98
[2023-06-23] MEDS: guaiFENesin 200 MG/10 ML 10 ML LIQUID PO ×5 (00:19→21:59)
[2023-06-23] MEDS: 0.9 % Sodium Chloride Flush 3 ML SYRINGE IVFLUSH ×4 (00:20→20:10)
[2023-06-23 03:27] VITALS: BP 145/87; PULSE 50; RESP 20; TEMP 36.3; O2SAT 92
[2023-06-23] MEDS: Omeprazole 20 MG CAPSULE.DR PO (05:19)
--- NOTE | 2023-06-23 05:57 | PC.NURSE ---
Patient noted to have minimal output from vega catheter. At 04:00 pt bladder scanned, 496mls. MD ordered to irrigate vega catheter. Catheter irrigated with normal saline 50mls, no output. MD notified, vega catheter pulled and new vega catheter placed. minimal output. MD notified and no further orders placed.
[2023-06-23 07:38] VITALS: BP 130/90; PULSE 104; RESP 20; TEMP 36.4; O2SAT 92
[2023-06-23] MEDS: Doxycycline Monohydrate 100 MG CAPSULE PO ×2 (08:48→20:10)
[2023-06-23] MEDS: Furosemide 20 MG/2 ML VIAL IVPUSH ×2 (08:48→16:42)
[2023-06-23] MEDS: dilTIAZem HCL CD 240 MG CAP.ER.DEG 480 MG PO (08:48)
[2023-06-23] MEDS: cefTRIAXone sodium 1 GM in 0.9 % Sodium Chloride 50 ML IV (08:48)
[2023-06-23] MEDS: predniSONE 20 MG TABLET 30 MG PO (08:48)
[2023-06-23] MEDS: Apixaban 5 MG TABLET PO ×2 (08:48→20:10)
[2023-06-23] MEDS: Cholecalciferol (Vitamin D3) 25 MCG TABLET PO (08:48)
[2023-06-23] MEDS: Sodium Bicarbonate 650 MG TABLET PO ×4 (08:48→20:10)
[2023-06-23 11:00] VITALS: BP 129/86; PULSE 112; RESP 20; TEMP 36.1; O2SAT 95
--- NOTE | 2023-06-23 14:28 | MHC.CM.PN ---
Addendum entered by Tatiana East 06/24/23 12:05: PT DISCHARGED TO [facility] TODAY VIA [facility] BLS ARRANGED BY PREVIOUS CM Addendum entered by Karlene Watkins 06/23/23 15:23: Per hospitalist, D/C to be delayed until tomorrow. Transport re-booked for 06/23 at 12pm via BLS/[facility]. Pt and his daughter/HCP Taya updated and [facility] updated. Original Note: Second IMM 06/22. Pt is medically cleared for D/C today, this CM called Tatiana at [facility] and they are unable to accept pt back today due to his deconditioning and PT recommendation for STR. This CM added referral to STR in local area and [facility] has offered pt a bed for today. Transport set up for 4:30pm via BLS/Jerry. Above plan relayed to pt and pts daughter/HCP Taya who is in agreement with plan.
[2023-06-23 15:47] VITALS: BP 141/86; PULSE 92; RESP 20; TEMP 36.4; O2SAT 94
--- NOTE | 2023-06-23 17:06 | HO.PM.IMPN ---
Subjective Subjective Date of Service: 06/23/23 Interval History: No acute issues overnight. Review of Systems Denies chest pain Denies shortness of breath Denies nausea vomiting diarrhea Denies fever chills Physical Exam Vital Signs: Vital Signs: Last Vital Signs Temp 97.6 F 06/23/23 15:47 Pulse 92 06/23/23 15:47 Resp 20 06/23/23 15:47 BP 141/86 H 06/23/23 15:47 Pulse Ox 94 06/23/23 15:47 O2 Del Method Room Air 06/23/23 15:47 O2 Flow Rate 2 06/20/23 16:00 FiO2 30 06/19/23 03:42 BMI result Body Mass Index 30.4 Const: Other: Awake alert no acute distress Resp: Other: Clear to auscultation bilaterally no rales rhonchi wheezes Cardio: Other: No S4; positive S1-S2; no S3 murmurs rubs or gallops GI: Other: Soft nontender nondistended normoactive bowel sounds Extrem: Other: No edema bilaterally Objective Data Active Medications Acetaminophen (Acetaminophen 325 Mg Tablet) 975 mg PO Q6H PRN PRN Reason: fever and pain Last Admin: 06/16/23 04:49 Dose: 975 mg Documented By: TERESA Apixaban (Apixaban 5 Mg Tablet) 5 mg PO BID [facility] Last Admin: 06/23/23 08:48 Dose: 5 mg Documented By: MAGALIS Atorvastatin Calcium (Atorvastatin Calcium 80 Mg Tablet) 80 mg PO BEDTIME [facility] Last Admin: 06/22/23 19:52 Dose: 80 mg Documented By: YVES Calcium Carbonate (Calcium Carbonate 500 Mg Tablet) 500 mg PO DAILY [facility] Last Admin: 06/23/23 08:48 Dose: 500 mg Documented By: MAGALIS Diltiazem HCl (Diltiazem Hcl Cd 240 Mg Cap.Er.Deg) 480 mg PO DAILY [facility]; Protocol Last Admin: 06/23/23 08:48 Dose: 480 mg Documented By: MAGALIS Doxycycline Monohydrate (Doxycycline Monohydrate 100 Mg Capsule) 100 mg PO Q12H [facility] Stop: 06/23/23 23:00 Last Admin: 06/23/23 08:48 Dose: 100 mg Documented By: MAGALIS Furosemide (Furosemide 20 Mg Tablet) 20 mg PO DAILY [facility]; Protocol Guaifenesin (Guaifenesin 200 Mg/10 Ml 10 Ml Liquid) 10 ml PO Q6H [facility] Last Admin: 06/23/23 16:42 Dose: 10 ml Documented By: ROSS Guaifenesin/Codeine Phosphate (Guaifen/Codeine Sf 200/20/10ml 10 Ml Liquid) 5 ml PO Q4H PRN PRN Reason: Cough Last Admin: 06/22/23 08:01 Dose: 5 ml Documented By: SYBIL Hydromorphone HCl (Hydromorphone Hcl 0.5 Mg/0.5 Ml Syringe) 0.5 mg IVPUSH Q4H PRN; Protocol PRN Reason: distress Last Admin: 06/16/23 16:48 Dose: 0.5 mg Documented By: MARIA DE JESUS Omeprazole (Omeprazole 20 Mg Capsule.Dr) 20 mg PO DAILY@0630 [facility] Last Admin: 06/23/23 05:19 Dose: 20 mg Documented By: YVES Prednisone (Prednisone 20 Mg Tablet) 40 mg PO DAILY [facility]; Taper Stop: 06/30/23 08:59 Last Admin: 06/23/23 08:48 Dose: 40 mg Documented By: MAGALIS Sodium Bicarbonate (Sodium Bicarbonate 650 Mg Tablet) 650 mg PO QID [facility] Last Admin: 06/23/23 16:42 Dose: 650 mg Documented By: ROSS Sodium Chloride (0.9 % Sodium Chloride Flush 3 Ml Syringe) 3 ml IVFLUSH QSHIFT [facility] Last Admin: 06/23/23 16:42 Dose: 3 ml Documented By: ROSS Vitamin D (Cholecalciferol (Vitamin D3) 25 Mcg Tablet) 25 mcg PO DAILY [facility] Last Admin: 06/23/23 08:48 Dose: 25 mcg Documented By: MAGALIS Labs 06/16/23 22:51 06/21/23 08:30 Assessment and Plan (1) Acute hypoxic respiratory failure: Status: Acute Assessment and Plan: 77yo M sent in from [facility] due to multiple falls and confusion;presented with fever, tachycardia, tachypnea, lactic acidosis, ENEDELIA;admitted for hypoxia due to influenza A + pneumonia and new-onset AF/RVR 1.Acute/chronic HFpEF -switch to p.o. Lasix and follow clinically -follow response to therapy -follow renals/divalents 2.Acute hypoxic rep failure + severe sepsis due to influenza + pneumonia - ceftriaxone 06/14-06/22 - azithromycin 06/14-06/20, doxycycline 06/20-06/22 - vancomycin 06/14-06/20, MRSA negative so vancomycin discontinued - completed >5d of oseltamivir - wean steroids: was on 40 mg of IV methylprednisolone q6h, changed to q12h 06/20 then q24h ; prednisone taper over 8 days -06/28 3.New-onset AF/RVR - amiodarone gtt -> PO diltiazem -acceptable rate control -apixaban for CVA prevention 4.CKD3 -back to baseline with volume repletion -follow renals/divalents Apixaban Full code Short-term rehab in a.m. In my clinical judgment, the patient requires continued inpatient hospitalization for the following reasons: rate control, diuresis (2) Atrial fibrillation with rapid ventricular response: Status: Acute Quality Stroke Does the patient have a stroke diagnosis?: No VTE Prior VTE?: No VTE Risk Level:: Medical - moderate - high VTE Device Contraindication: Treatment Not Indicated VTE Drug Contraindication: N/A - Med Ordered
[2023-06-23 19:11] VITALS: BP 146/82; PULSE 75; RESP 18; TEMP 36; O2SAT 93
[2023-06-23] MEDS: Atorvastatin Calcium 80 MG TABLET PO (20:10)
[2023-06-23 23:20] VITALS: BP 146/77; PULSE 71; RESP 18; TEMP 36.6; O2SAT 96
[2023-06-24 03:07] VITALS: BP 175/87; PULSE 65; RESP 18; TEMP 36.6; O2SAT 92
[2023-06-24] MEDS: guaiFENesin 200 MG/10 ML 10 ML LIQUID PO (05:45)
[2023-06-24] MEDS: Omeprazole 20 MG CAPSULE.DR PO (05:45)
[2023-06-24 07:13] VITALS: BP 167/90; PULSE 68; RESP 22; TEMP 36.8; O2SAT 92
[2023-06-24] MEDS: dilTIAZem HCL CD 240 MG CAP.ER.DEG 480 MG PO (07:57)
[2023-06-24] MEDS: Sodium Bicarbonate 650 MG TABLET PO (07:58)
[2023-06-24] MEDS: Furosemide 20 MG TABLET PO (07:58)
[2023-06-24] MEDS: Cholecalciferol (Vitamin D3) 25 MCG TABLET PO (07:58)
[2023-06-24] MEDS: predniSONE 20 MG TABLET 30 MG PO (07:58)
[2023-06-24] MEDS: Apixaban 5 MG TABLET PO (07:58)
[2023-06-24] MEDS: 0.9 % Sodium Chloride Flush 3 ML SYRINGE IVFLUSH (07:59)
--- NOTE | 2023-06-24 11:37 | PM.DS ---
DS: Providers Provider Date of Service: 06/24/23 Date of admission: 06/13/23 23:49 Date of discharge: 06/24/23 Primary care physician: Odell Velasco MD Consults: 06/14/23 08:53 Consult to Nephrology Routine Consulting Provider: [facility] Reason for consultation: enedelia,multiple electrolytic abnormalities Has provider been notified: No 06/15/23 03:56 Consult to Wound Care Routine Reason for consultation: Coccyx wound Has provider been notified: No 06/16/23 07:57 Consult to Pulmonology Routine Consulting Provider: [facility] Reason for consultation: copd excerebation Has provider been notified: No 06/17/23 07:14 Consult to Cardiology Routine Consulting Provider: [facility] Reason for consultation: new onset afib ,elevated trop Has provider been notified: No 06/19/23 10:20 Consult to Infectious Diseases Routine Consulting Provider: [facility] Reason for consultation: acute hypoxemic respiratory failure sec pneumonia/copd Has provider been notified: No DS: Diagnosis Discharge Diagnosis (1) Acute hypoxic respiratory failure: Status: Acute (2) Atrial fibrillation with rapid ventricular response: Status: Acute DS: Summary Hospital Course Hospital Course: 77yo M sent in from [facility] due to multiple falls and confusion; presented with fever, tachycardia, tachypnea, lactic acidosis, ENEDELIA;admitted for hypoxia due to influenza A + pneumonia. 1.Acute hypoxic rep failure + severe sepsis due to influenza + pneumonia - ceftriaxone 06/14-06/22 - azithromycin 06/14-06/20, doxycycline 06/20-06/22 - vancomycin 06/14-06/20, MRSA negative so vancomycin discontinued - completed >5d of oseltamivir - wean steroids, was on 40 mg of IV methylprednisolone q6h, prednisone taper; 60 x 3 days, 40 x 3 days, 20 x 3 days 2.New-onset AF/RVR - amiodarone gtt -> PO diltiazem. Currently 240 CD mg/d. Will give extra 60 mg IR q6h x2 and increase CD to 360 mg/d; ineffective. . . Rate control with 480 daily - apixaban for CVA prevention - TTE 06/15/23: Technically limited study despite use of contrast agent Normal LV ejection fraction of 55-60% with impaired relaxationfilling pattern Mildly dilated left atrium Poorly visualized cardiac valves with moderate mitral calcification with cardiac valvular Dopplers within normal limits Normal RV systolic pressure 3. prerenal ENEDELIA/CKD3 - ENEDELIA resolved with IV fluid hydration -follow renals/divalents Seen by Physical therapy who recommended short-term rehab. At this point in time patient medically acceptable to transfer to SNF for short-term rehab Time Attestation Discharge coordination time: Greater than 30 minutes Quality: Safe Use of Opioids Does Pt have an Active Cancer Diagnosis on the Problem List?: No Quality: Stroke Does the patient have a stroke diagnosis?: No Physical Exam Vital Signs: Vital Signs: Last Vital Signs Temp 98.3 F 06/24/23 07:13 Pulse 68 06/24/23 07:13 Resp 22 H 06/24/23 07:13 BP 167/90 H 06/24/23 07:13 Pulse Ox 92 06/24/23 07:13 O2 Del Method Room Air 06/24/23 07:13 O2 Flow Rate 2 06/20/23 16:00 FiO2 30 06/19/23 03:42 BMI result Body Mass Index 30.4 Const: Other: Awake alert no acute distress Resp: Other: Clear to auscultation bilaterally no rales rhonchi wheezes Cardio: Other: No S4; positive S1-S2; no S3 murmurs rubs or gallops GI: Other: Soft nontender nondistended normoactive bowel sounds Extrem: Other: No edema bilaterally Discharge Plan Discharge Anticipated Discharge Date/Time: 06/24/23 11:32 Patient Disposition: Xfer Inpatient Rehab Fac Discharge Diagnosis: Pneumonia Referrals: [facility] [Outside] - 1 Week Odell Velasco MD [Primary Care Provider] - 1 Week Discharge Medications: New Eliquis 5 mg Tablet 5 mg PO BID Qty: 60 0RF diltiazem HCl 240 mg Capsule,Extended Release 24hr 480 mg PO DAILY Qty: 30 0RF Protocol: Hold for SBP/HR < HOLD for SBP < : 90 HOLD for HR < : 60 calcium carbonate [Oyster Shell Calcium 500] 500 mg calcium (1,250 mg) Tablet 500 mg PO DAILY Qty: 30 0RF sodium bicarbonate 650 mg Tablet 650 mg PO QID Qty: 120 0RF furosemide 20 mg Tablet 20 mg PO DAILY Qty: 30 0RF Protocol: Hold for SBP< HOLD for SBP < : 90 prednisone 20 mg tablet See Rx Instructions .Route .COMPLEX Qty: 18 0RF Rx Instructions: 20 mg orally; 3 tabs daily for 3 days, 2 tabs daily for 3 days, 1 tab daily for 3 days Continued amlodipine 5 mg tablet 5 mg PO DAILY tramadol 50 mg tablet 50 mg PO Q6H PRN (Reason: Pain) pantoprazole 20 mg tablet,delayed release (DR/EC) 20 mg PO DAILY lisinopril 30 mg tablet 30 mg PO DAILY rosuvastatin 20 mg tablet 20 mg PO BEDTIME Discharge Orders: Discharge Order (Routine); Ordered 06/24/23 Ordered By: Steve Ayala Diet: Advance to usual diet Activity on Discharge: As tolerated Stand Alone Forms: Patient Portal Discharge page Care Plan Goals: Continue all meds as outlined on discharge sheet Health Concerns: Prednisone taper as ordered Plan of Treatment: As per receiving facility Assessment: See discharge summary
[2023-06-24 11:43] VITALS: BP 132/81; PULSE 84; RESP 22; O2SAT 92
== END 2023-06-24 12:10 | DRG 871 ==
LOC: HO.ED 23:02 → HO.EDOVER 23:54 → HO.IMC 06-14 14:58
PROVIDERS: Family Medicine; Internal Medicine; Admitting Provider Internal Medicine; Emergency Provider Emergency Medicine Emergency Medical Services; PCP Internal Medicine; Visit Provider Hospitalist
DX: A41.89 Other specified sepsis (principal); J10.01 Influenza due to other identified influenza virus with the same other identified influenza virus pneumonia; J80 Acute respiratory distress syndrome; E87.21 Acute metabolic acidosis; N17.9 Acute kidney failure, unspecified; R65.20 Severe sepsis without septic shock; I48.91 Unspecified atrial fibrillation; E87.6 Hypokalemia; E21.3 Hyperparathyroidism, unspecified; E83.42 Hypomagnesemia; N18.30 Chronic kidney disease, stage 3 unspecified; R29.6 Repeated falls; K21.9 Gastro-esophageal reflux disease without esophagitis; Z79.899 Other long term (current) drug therapy
CPT/HCPCS: 36415; 36600; 70450; 71045; 71046; 80048; 80053; 80202; 81001; 82306; 82565; 82803; 83605; 83690; 83735; 83880; 83970; 84132; 84484; 85007; 85025; 85027; 85610; 85730; 87040; 87502; 87635; 87640; 87641; 93005; 93306; 94640; 97162; 97530; 99285; C1758; C9113; J0131; J0282; J0456; J0696; J1170; J1644; J1940; J2270; J2920; J2930; J3370; J3371; J3475; J3480; P9047; Q9957

== ENCOUNTER → 2023-06-13 20:11 | Outpatient (BNV) | payer MEDICARE, MEDICAID, SELFPAY | PROVIDERS: Admitting Provider Internal Medicine; Emergency Provider Emergency Medicine Emergency Medical Services; Visit Provider Internal Medicine Cardiovascular Disease | DX: R94.31 Abnormal electrocardiogram [ECG] [EKG] (principal) | CPT/HCPCS: 93010 ==

== ENCOUNTER 2023-06-13 23:49 | Outpatient (BNV) | payer MEDICARE, MEDICAID, SELFPAY | END 2023-06-16 22:12 | PROVIDERS: Admitting Provider Internal Medicine; Emergency Provider Emergency Medicine Emergency Medical Services; PCP Internal Medicine; Visit Provider Internal Medicine Cardiovascular Disease | DX: R94.31 Abnormal electrocardiogram [ECG] [EKG] (principal) | CPT/HCPCS: 93010 ==

== ENCOUNTER 2023-06-13 23:49 | Outpatient (BNV) | payer MEDICARE, MEDICAID, SELFPAY | END 2023-06-15 07:00 | PROVIDERS: Admitting Provider Internal Medicine; Emergency Provider Emergency Medicine Emergency Medical Services; PCP Internal Medicine; Visit Provider Internal Medicine Cardiovascular Disease | DX: I34.81 Nonrheumatic mitral (valve) annulus calcification (principal) | CPT/HCPCS: 93306 ==

== ENCOUNTER → 2023-06-13 23:49 | Outpatient (BNV) | payer MEDICARE, MEDICAID, SELFPAY | PROVIDERS: Admitting Provider Internal Medicine; Emergency Provider Emergency Medicine Emergency Medical Services; PCP Internal Medicine; Visit Provider Internal Medicine Cardiovascular Disease | DX: I48.91 Unspecified atrial fibrillation (principal); J96.01 Acute respiratory failure with hypoxia; J10.1 Influenza due to other identified influenza virus with other respiratory manifestations | CPT/HCPCS: 99222; 99233 ==

== ENCOUNTER → 2023-06-13 23:49 | Outpatient (BNV) | payer MEDICARE, MEDICAID, SELFPAY | PROVIDERS: Admitting Provider Internal Medicine; Emergency Provider Emergency Medicine Emergency Medical Services; PCP Internal Medicine; Visit Provider Physician Assistant Medical | DX: J10.08 Influenza due to other identified influenza virus with other specified pneumonia (principal) | CPT/HCPCS: 99231 ==

== ENCOUNTER → 2023-06-13 23:49 | Outpatient (BNV) | payer MEDICARE, MEDICAID, SELFPAY | PROVIDERS: Admitting Provider Internal Medicine; Emergency Provider Emergency Medicine Emergency Medical Services; Visit Provider Internal Medicine | DX: J96.01 Acute respiratory failure with hypoxia (principal); I48.91 Unspecified atrial fibrillation; N18.30 Chronic kidney disease, stage 3 unspecified | CPT/HCPCS: 99223; 99232; 99233; 99238; 99499 ==

== ENCOUNTER → 2023-06-13 23:49 | Outpatient (BNV) | payer MEDICARE, MEDICAID, SELFPAY | PROVIDERS: Admitting Provider Internal Medicine; Emergency Provider Emergency Medicine Emergency Medical Services; PCP Internal Medicine; Visit Provider Internal Medicine | DX: J80 Acute respiratory distress syndrome (principal); N17.9 Acute kidney failure, unspecified; J10.1 Influenza due to other identified influenza virus with other respiratory manifestations; J18.9 Pneumonia, unspecified organism | CPT/HCPCS: 99222 ==

== ENCOUNTER → 2023-06-13 23:49 | Outpatient (BNV) | payer MEDICARE, MEDICAID, SELFPAY | PROVIDERS: Admitting Provider Internal Medicine; Emergency Provider Emergency Medicine Emergency Medical Services; PCP Internal Medicine; Visit Provider Internal Medicine Nephrology | DX: N17.0 Acute kidney failure with tubular necrosis (principal) | CPT/HCPCS: 99223 ==

== ENCOUNTER → 2023-06-13 23:49 | Outpatient (BNV) | payer MEDICARE, MEDICAID, SELFPAY | PROVIDERS: Admitting Provider Internal Medicine; Emergency Provider Emergency Medicine Emergency Medical Services; PCP Internal Medicine; Visit Provider Hospitalist | DX: J10.1 Influenza due to other identified influenza virus with other respiratory manifestations (principal); J18.9 Pneumonia, unspecified organism | CPT/HCPCS: 99223; 99232 ==

== ENCOUNTER 2024-01-04 10:06 | Outpatient (AMB) | payer MEDICARE, SELFPAY, MEDICAID ==
--- NOTE | 2024-01-04 10:09 | MHC.OFFVIS ---
Vital Signs 01/04/24 10:10 Height 5 ft 6 in Weight 165 lb BMI 26.6 BP 118/60 Blood Pressure Location Lt brachial Position Sitting Pulse 80 Pulse Source Pulse Oximeter Intake Visit Reasons: f/up and r/s Allergies atorvastatin Allergy (Unknown, Verified 11/20/19 00:00) itching Medication List - Last Reconciled 01/04/24 by Sky Dennis MD amlodipine 5 mg PO DAILY apixaban (Eliquis) 5 mg PO BID calcium carbonate (Oyster Shell Calcium 500) 500 mg PO DAILY diltiazem HCl CD 480 mg See Protocol PO DAILY furosemide 20 mg See Protocol PO DAILY lisinopril 30 mg PO DAILY pantoprazole 20 mg PO DAILY prednisone 20 mg orally; 3 tabs daily for 3 days, 2 tabs daily for 3 days, 1 tab daily for 3 days rosuvastatin 20 mg PO BEDTIME sodium bicarbonate 650 mg PO QID tramadol 50 mg PO Q6H PRN HPI Comments Details: Thierno comes for follow-up accompanied by SALES SERVICE ASSISTANT from his long-term living facility. He is walking with a walker. Otherwise he is not having any cardiac issues. Denies any prolonged palpitation irregular heartbeat. Taking all his medications. Denies any exertional chest pain or shortness of breath. Denies orthopnea, PND, leg edema. No lightheadedness, syncope. Seemingly he is both on diltiazem and amlodipine, trying to confirm this conflict [facility] Medical History Atrial fibrillation with rapid ventricular response GERD (gastroesophageal reflux disease) Hypercholesteremia Hypertension Social History Household Members: None Household Members Other:: Pt from [facility] Housing: [facility] Do you presently have visiting nurse or other home services: No Patient Tobacco Use Status: Never used Tobacco Advance Directives Date on File: 06/14/23 service: No Review of Systems Const Denies weakness ENT Denies dizziness Card Denies chest pain, Denies chest pain with activity, Denies syncope, Denies rapid heart rate, Denies pedal edema, Denies edema, Denies leg edema, Denies lightheadedness, Denies palpitations, Denies dyspnea, Denies dyspnea on exertion and Denies orthopnea Resp Denies cough, Denies dyspnea and Denies dyspnea on exertion GI Denies hematochezia and Denies change in stool character Musc Denies abnormal gait, Denies muscle cramps, Denies muscle weakness, Denies numbness, Denies radiating pain into limb and Denies tingling Neuro Denies abnormal gait, Denies dizziness, Denies syncope, Denies numbness, Denies tingling and Denies weakness Endo Denies palpitations Physical Exam Vital Signs: Last Vital Signs Pulse 80 01/04/24 10:10 BP 118/60 01/04/24 10:10 BMI result Body Mass Index 26.6 Const General: cooperative, comfortable, alert, awake and poor hygiene Nutritional Appearance: average body habitus Orientation/consciousness: patient oriented x3 Limitations: ambulation with walker Neck Neck: Yes trachea midline, Yes supple and Yes no JVD Resp Effort & Inspection: normal respiratory effort Auscultation: clear to auscultation bilaterally Cardio Jugular venous distension: no JVD Palpation: normal PMI Rate: regular rate Rhythm: regular rhythm Heart sounds: S1 normal heart sound present, S2 normal heart sound present, no click, no gallops, no murmurs and no rubs GI Auscultation: normal bowel sounds Neuro General: patient oriented x3 and no focal motor deficits Extrem General: Yes no clubbing, cyanosis or edema Office Procedures EKG Details: EKG shows normal sinus rhythm with rightward axis otherwise normal EKG [place] 98157-[id number], Complete Assessment & Plan Assessment & Plan (1) Paroxysmal atrial fibrillation: Code(s): I48.0 - Paroxysmal atrial fibrillation Category: Medical Plan: Paroxysmal atrial fibrillation which is currently suppressed without any obvious new symptoms. At this point time would continue Cardizem therapy. Continue full oral anticoagulation with Eliquis 5 mg b.i.d.. Semi annual renal function test should be pursued. Avoidance of stimulants was discussed. Continue aggressive risk factor modification with aggressive blood pressure control, see below. (2) Hypertension: Code(s): I10 - Essential (primary) hypertension Category: Medical Plan: Blood pressure on today's exam is well controlled although seems like he is on 2 calcium channel blockers both Cardizem as well as amlodipine. At this point time would discontinue amlodipine and continue Cardizem therapy as it helps with management of atrial fibrillation as well. Target goal blood pressure less than 130/84. Low-salt diet was recommended. Will follow up in 1 year's time, sooner p.r.n.. Thank you for allowing me to partake in his care Orders: Orders CA echo transthoracic complete Today I48.0 - Paroxysmal atrial fibrillation Coding Level of Care Code Est Pt Level 4 (03608) Diagnoses Paroxysmal atrial fibrillation I48.0 Hypertension I10 CPT Codes EKG - CPT: 57087-[id number], Complete ([id number])
[2024-01-04 10:10] VITALS: BP 118/60; PULSE 80; BMI 26.6
== END 2024-01-04 10:29 | disposition home or self-care (01) ==
PROVIDERS: PCP Internal Medicine; Visit Provider Internal Medicine Cardiovascular Disease
DX: I48.0 Paroxysmal atrial fibrillation (principal); I10 Essential (primary) hypertension
CPT/HCPCS: 93010; 99214

== ENCOUNTER → 2024-01-04 10:06 | Outpatient (BNVA) | payer MEDICARE, MEDICAID, SELFPAY | PROVIDERS: PCP Internal Medicine; Visit Provider Internal Medicine Cardiovascular Disease | DX: I48.0 Paroxysmal atrial fibrillation (principal); I10 Essential (primary) hypertension; Z79.01 Long term (current) use of anticoagulants; Z79.899 Other long term (current) drug therapy | CPT/HCPCS: 93005; 99212 ==

== ENCOUNTER → 2024-01-18 10:52 | Outpatient (REF) | payer MEDICARE, MEDICAID, SELFPAY ==
--- NOTE | 2024-01-18 11:05 | CA_ITS ---
Transthoracic Echocardiogram Amended Patient (Last, First, Middle): Thierno Maki J Gender: Male Date of : 1945 Age: 78 Procedure Date: 01/18/2024 Procedure Type: Transthoracic Echocardiogram Location: OP Height: 167.64 cm Weight: 74.84 kg BSA: 1.84 m2 Heart Rate: bpm BP: 118 / 64 mmHg Corporate Development Intern: TO Referring MD: Sky Denins MD Symptoms: I48.0 - Paroxysmal atrial fibrillation Study Quality: Fair ECG Rhythm: Sinus Conclusions: - The left ventricular systolic function is normal. The calculated ejection fraction is 65% by biplane method. - No obvious valvular pathology seen on this study. Findings Left Ventricle Normal left ventricular cavity size. The left ventricular systolic function is normal. The calculated ejection fraction is 65% by biplane method. There is no evidence of regional wall motion abnormalities. Diastolic function is normal for age. There is mild septal and mild basal asymmetric hypertrophy. Right Ventricle Mildly increased right ventricular cavity size. There is normal right ventricular systolic function. Atria The left atrium is mildly dilated. The right atrium is normal in size. Aortic Valve There is a normal trileaflet aortic valve. There is no aortic valve stenosis. There is no aortic valve regurgitation. Mitral Valve There is mild mitral annular calcification. There is trace mitral valve regurgitation. There is no mitral valve stenosis. Pulmonic Valve The pulmonic valve is likely normal. Tricuspid Valve Normal tricuspid valve structure. There is trace tricuspid valve regurgitation. Tricuspid regurgitation envelope is inadequate for calculation of right ventricular systolic pressure. Great Vessels The aortic annulus, sinuses of valsalva, and asc aorta are normal in size. Venous The inferior vena cava was not well visualized. Pericardium/Pleural There is no evidence of pericardial effusion. Prior Study Comparison No significant change compared to prior study dated: 06/15/2023. Recommendations, Care & Conclusions No obvious valvular pathology seen on this study. Measurements 2D Linear Measurements IVSd: 1.17 0.6-0.9/0.6-1.0 cm LVIDd: 5.03 3.9-5.3/4.2-5.9 cm LVIDd Index: 2.73 2.4-3.2/2.2-3.1 cm/m2 LVIDs: 2.93 2.0-3.6 cm LVPWd: 0.81 0.7-1.1 cm LA Diam: 4.10 2.7-3.8/3.0-4.0 cm LAIDs Index: 2.23 1.5-2.3 cm/m2 LV Mass: 226.05 67-162/88-224 g LV Mass Index: 122.85 43-95/49-115 g/m2 LVOT Diam: 2.30 3.0+(-)1.3 cm 2D Volumes LA Vol: 40.50 2D Systolic Function EF 4C: 69.50 >55% EF 2C: 63.90 >55% EF BiP: 65.20 >55% Mitral Valve MV VTI: 0.43 MV Pk Nate: 1.19 MV Mn Nate: 0.76 MV Pk Grad: 6.00 MV Mn Grad: 3.00 MV Pk E: 0.93 MV PK A: 1.08 MV Decel Time: 276.00 E/A: 0.90 E'Lateral: 9.36 E'Medial: 6.74 E/E' Med: 13.90 E/E' Lat: 10.00 PHT: 81.00 MVA PHT: 2.72 MVA Continuity: 2.59 Decel Cooper: 3.38 Aortic Valve AoV Pk Nate: 1.56 AoV Mn Nate: 1.08 AoV VTI: 0.34 AoV Pk Grad: 10.00 Aov Mn Grad: 5.00 LUCIO Cont.VTI: 3.23 LVOT LVOT Pk Nate: 1.21 LVOT Mn Nate: 0.83 LVOT VTI: 0.27 LVOT Pk Grad: 6.00 LVOT Mn Grad: 3.00 LVOT Diam: 2.30 LVOT Area: 4.15 Diastolic Function MV Pk E: 0.93 MV Pk A: 1.08 E/A: 0.90 E'Medial: 6.74 E/E' Med: 13.90 E' Laterial: 9.36 E/E' Lat: 10.00 Great Vessels Aorta Sinus of Valsalva: 3.98 2.0-3.[address] Ridge: 3.29 1.7-3.4 cm Ao Asc: 3.80 2.1-3.4 cm Updated in Other Vendor System with Status of Final Héctor Dunn MD electronically signed on 01/20/2024 9:24:34 AM with status of Final
== END ==
LOC: HO.CARD 10:52
PROVIDERS: PCP Internal Medicine; Visit Provider Internal Medicine Cardiovascular Disease
DX: I48.0 Paroxysmal atrial fibrillation (principal)
CPT/HCPCS: 93306

== ENCOUNTER → 2024-01-18 11:05 | Outpatient (BNV) | payer MEDICARE, MEDICAID, SELFPAY | PROVIDERS: PCP Internal Medicine; Visit Provider Internal Medicine | DX: I42.2 Other hypertrophic cardiomyopathy (principal) | CPT/HCPCS: 93306 ==

== ENCOUNTER 2025-01-06 10:27 | Outpatient (AMB) | payer MEDICARE, MEDICAID, SELFPAY ==
--- NOTE | 2025-01-06 10:29 | A.OFFVIS_ITS ---
Vital Signs 01/06/25 10:30 Height 5 ft 6 in Weight 174 lb 2.643 oz BMI 28.1 BP 118/68 Blood Pressure Location Lt brachial Position Sitting Pulse 80 Intake Visit Reasons: 1 year follow-up Intake Note: 1 year follow-up with ekg feeling good Research Associate Quality Control Qc Required: No Hydroelectric Component Machinist: Hydroelectric Component Machinist Present Accompanied by: Other Relationship Allergies atorvastatin Allergy (Unknown, Verified 11/20/19 00:00) itching Medication List - Last Reconciled 01/06/25 by Sky Dennis MD amlodipine 5 mg PO DAILY apixaban (Eliquis) 5 mg PO BID calcium carbonate (Oyster Shell Calcium 500) 500 mg PO DAILY diltiazem HCl CD (Cardizem CD) 360 mg PO DAILY furosemide 20 mg See Protocol PO DAILY lisinopril 30 mg PO DAILY pantoprazole 20 mg PO DAILY rosuvastatin 20 mg PO BEDTIME sodium bicarbonate 650 mg PO QID tramadol 50 mg PO Q6H PRN HPI Comments Details: Thierno comes for follow-up. Remains in intermediate care facility. Walks with a walker. No falls. Denies any cardiac symptoms. No exertional chest pain or sh ortness of breath. No orthopnea, PND, leg edema. No prolonged palpitation irregular heartbeat. Currently noted that he is on both Cardizem and amlodipine therapy still. We discussed this last year and made a note of it although no changes has been made. Blood pressures been well optimized. Hemoglobin noted in his chart had gradually downtrending. Did not have any clear lab work from his intermediate facility. He denies any lightheadedness, syncope. [facility] Medical History Atrial fibrillation with rapid ventricular response GERD (gastroesophageal reflux disease) Hypercholesteremia Hypertension Social History Household Members: None Household Members Other:: Pt from [facility] Home Housing: Assisted Do you presently have visiting nurse or other home services: No Patient Tobacco Use Status: Never used Tobacco Advance Directives Date on File: 06/14/23 service: No Review of Systems Const Denies chills, Denies fatigue, Denies fever(s), Denies frequent falls, Denies weakness, Denies weight gain and Denies weight loss ENT Denies dizziness Card Denies chest pain, Denies leg edema, Denies lightheadedness, Denies palpitations, Denies dyspnea, Denies dyspnea on exertion, Denies orthopnea and Denies other (loss of consciousness) Resp Denies cough, Denies dyspnea and Denies dyspnea on exertion GI Denies hematochezia and Denies change in stool character Musc Denies abnormal gait, Denies muscle weakness, Denies numbness, Denies radiating pain into limb and Denies tingling Neuro Denies abnormal gait, Denies dizziness, Denies frequent falls, Denies numbness, Denies tingling and Denies weakness Endo Denies fatigue and Denies palpitations Physical Exam Vital Signs: Last Vital Signs Pulse 80 01/06/25 10:30 BP 118/68 01/06/25 10:30 BMI result Body Mass Index 28.1 Const General: cooperative, comfortable, alert, awake and poor hygiene Nutritional Appearance: average body habitus Orientation/consciousness: patient oriented x3 Limitations: ambulation with walker Neck Neck: Yes trachea midline, Yes supple and Yes no JVD Resp Effort & Inspection: normal respiratory effort Auscultation: clear to auscultation bilaterally Cardio Jugular venous distension: no JVD Palpation: normal PMI Rate: regular rate Rhythm: regular rhythm Heart sounds: S1 normal heart sound present, S2 normal heart sound present, no click, no gallops, no murmurs and no rubs GI Auscultation: normal bowel sounds Neuro General: patient oriented x3 and no focal motor deficits Extrem General: Yes no clubbing, cyanosis or edema Office Procedures EKG Details: EKG shows normal sinus rhythm with low-voltage QRS with rightward axis otherwise normal EKGs 56849-[id number], Complete Assessment & Plan Assessment & Plan (1) Paroxysmal atrial fibrillation: Code(s): I48.0 - Paroxysmal atrial fibrillation Category: Medical Plan: Paroxysmal atrial fibrillation without any obvious clinical recurrence at this point time. Can continue Cardizem therapy although should be both on Cardizem and amlodipine therapy. Continue aggressive blood pressure control, see below. Continue full oral anticoagulation, currently on apixaban 5 mg b.i.d.. Semi annual renal function test and annual CBC should be checked. If that has gr adually downtrending hemoglobin the further workup should be pursued either 3 Hematology with GI if he has any significant GI bleed may need alternative therapies to oral anticoagulation. Discussed with him. Avoidance of stimulants was discussed. Will follow up as need be. (2) Hypertension: Code(s): I10 - Essential (primary) hypertension Category: Medical Plan: Hypertension which is currently well optimized although he is on dual calcium channel ross therapy. This should be discontinued. Amlodipine can be discontinued switch to lisinopril therapy and increasing lisinopril dosing. Continue monitor blood pressure on a regular basis at the superintendent terminal care facility. Low-salt diet was discussed. Stress mitigation strategies were discussed. Will follow up in the clinic if need be. Thank you for allowing me to partake in his care Coding Level of Care Code Est Pt Level 4 (30907) Complex EM visit Add On G2211 Diagnoses Paroxysmal atrial fibrillation I48.0 Hypertension I10 CPT Codes EKG - CPT: 11961-[id number], Complete ([id number])
[2025-01-06 10:30] VITALS: BP 118/68; PULSE 80; BMI 28.1
--- OUTSIDE RECORDS SUMMARY | 2025-01-06 13:23 | XMS_ITS | Clinical Summary ---
Author Organization [facility] Facility Address [address] [address] Care Team Providers Care Assembler Finger Buffs Name Role Phone Unavailable Primary Care Provider Unavailabl e Social History Tobacco Use Types Packs/Day Years Used Date Smoking Tobacco: Never Assessed Sex and Gender Information Value Date Recorded Sex Assigned at Not on file Legal Sex Male 12:20 PM EDT Gender Identity Not on file Sexual Orientation Not on file Plan of Treatment Health Maintenance Due Date Last Done Comments Pneumococcal Vaccine: 50+ Ye ars (1 of 1 - PCV) 08/09/1995 Influenza Vaccine (#1) 2024 Hepatitis B Vaccine Aged Out No longe r eligible based on patient's age to complete this topic Insurance Medicare [facility] [address] [place] [id number] Medicare [facility]
--- OUTSIDE RECORDS SUMMARY | 2025-01-06 13:23 | XMS_ITS | Patient Health Record ---
Author Organization [facility] Address [address] [facility] [place] [address] Care Team Providers Care Chief Executive Officer Name Role Phone Rod PORTER, Odell Primary Care Provider Reji Montes Unavailable [phone] Reason For Referral No Information Medications Medication SIG (Take, Route, Frequency, Duration) Notes Start Date End Date Status Lisinopril-hydroCHLOROthiazi de 10-12.5 MG 1 tablet Orally Once a day; Duration: 30 day(s) Active Citalopram Hydrobromide 40 MG 0.5 tablet Orally Once a day; Duration: 30 day(s) Active Sucralfate 1 GM 1 tablet Orally Twic e a day; Duration: 30 day(s) Active Zantac 150 MG 1 tablet Orally Twic e a day; Duration: 30 day(s) Active Crestor 20 MG 1 tablet Orally Once a day; Duration: 30 day(s) Active Beano as directed Orally A ctive Gabapentin 100 MG as directed Orally Active Glucosamine 500 MG 1 capsule with a marina l Orally Once a day; Duration: 30 day(s) Active Omeprazole 20 MG 1 capsule Orally Onc e a day; Duration: 30 day(s) Active Voltaren 1 % as directed Transdermal Active diazePAM 10 MG as directed Rectal Active Vitamin D3 1000 UNIT 1 tablet Orally Onc e a day; Duration: 30 day(s) Active Requip 2 MG 1 tablet 1 to 3 hour s before bedtime Orally Once a day; Duration: 30 day(s) Active Centrum Silver as directed Orally Active oxyCODONE-Acetaminophen 5-325 MG/5ML 5 ml as needed Orally every 6 hrs Active traMADol-Acetaminophen 37.5-325 MG 2 tablets as needed Orally every 6 hrs; Duration: 5 day(s) Active Cyclobenzaprine HCl 5 MG 1 tablet Orally Once a day; Duration: 30 day(s) Active buPROPion HCl ER (XL) 300 MG 1 tablet in the morning Orally Once a day; Duration: 30 day(s) Active Problems Problem Type SNOMED Code ICD Code Onset Dates Problem Status W/U Status Risk Notes Problem Hammer toe (877870380) Hammer toe (735.4) Active confirmed Problem Congenital pes planus (30828794) Flat Foot, Congenital (754.61) Active confirmed Problem Ingrowing nail (123846730) Ingrowing Nail (703.0) Active confirmed Plan Of Treatment Pending Test Test Name Order Date [id number] Plate 07/23/2012 41384- Debride <25 sq cm 08/06/2012 Insurance Providers Payer Name Payer Address Payer Phone Subscriber Number Group Number Insured Name Patient Relationship to Insured Coverage Start Date Coverage End Date Medicare [employer] [address] [place] [address] [id number] Thierno Maki Self - patient is the insured 1 Medicare [employer] [address] [place] [address] Thierno Maki Self - patient is the insured Medical (General) History Medical History History ICD Code chicken pox Surgical History Surgery Date(Month/Year) right knee replacement 2009
--- OUTSIDE RECORDS SUMMARY | 2025-01-06 13:23 | XMS_ITS | Encounter Summary ---
Author Organization [facility] Address [address] [place] [id number] Care Team Providers Care Spray Operator Name Role Phone Odell Velasco MD Primary Care Provider Encounter Details Date Type Department Care Team (Late st Contact Info) Description 11/26/[address] [facility] - Main Lab [address] [facility] [place] [address] Hay Diaz PA P[facility]P [address] [facility] [address] [place] [address] Essential (primary) hypertension; Unspecified atrial fibrillation (CMS/HCC V24, CMS/HCC V28); Chronic kidney disease, unspecified; Benign prostatic hyperplasia without lower urinary tract symptoms Social History Tobacco Use Types Packs/Day Years Used Date Smoking Tobacco: Never Smokeless Tobacco: Never Alcohol Use Standard Drinks/Week Comments Never 0 (1 standard drink = 0.6 oz pur e alcohol) Sex and Gender Information Value Date Recorded Sex Assigned at Not on file Legal Sex Male 8:50 AM EST Gender Identity Not on file Sexual Orientation Not on file documented as of this encounter Plan of Treatment Not on file documented as of this encounter Procedures Procedure Name Priority Date/Time Associated Diagnosis Comments PROSTATE SPECIFIC ANTIGEN DIAGNOSTIC Routine 11/26/2024 7:08 AM EDT Essential (primary) hypertension Unspecified atrial fibrillation (CMS/HCC V24, CMS/HCC V28) Chronic kidney disease, unspecified Benign prostatic hyperplasia without lower urinary tract symptoms COMPLETE BLOOD COUNT Routine 11/26/2024 7:08 AM EDT Essential (primary) hypertension Unspecified atrial fibrillation (CMS/HCC V24, CMS/HCC V28) Chronic kidney disease, unspecified Benign prostatic hyperplasia without lower urinary tract symptoms COMPREHENSIVE METABOLIC PANEL Routine 11/26/2024 7:08 AM EDT Essential (primary) hypertension Unspecified atrial fibrillation (CMS/HCC V24, CMS/HCC V28) Chronic kidney disease, unspecified Benign prostatic hyperplasia without lower urinary tract symptoms documented in this encounter Results * (ABNORMAL) Prostate specific antigen diagnostic (11/26/2024 7:08 AM EDT) PSA 4.40(H) 0.00 - 4.00 ng/mL LAB CHEMISTRY METHOD 11/26/2024 1:16 PM EDT [facility] Blood Venous blood specimen / Unknown Venipuncture / Unknown 11/26/2024 7:08 AM EDT 11/26/2024 9:46 AM EDT Narrative [facility] - 11/26/2024 1:16 PM EDT The Siemens [employer] [place] [employer] Chemiluminescent Immunoassay is used. Results obtained with different assay methods or kits cannot be used interchangeably. Results cannot be interpreted as absolute evidence of the presence or absence of malignant disease. [facility] BLOOD ORDERABLES Juanita solano Result [facility] [address] [place] [address], * (ABNORMAL) Comprehensive metabolic panel (11/26/2024 7:08 AM EDT) Sodium 140 133 - 145 mmol/L LAB CHEMISTRY METHOD 11/26/2024 12:07 PM EDT [facility] Potassium 4.0 3.5 - 5.5 mmol/L LAB CHEMISTRY METHOD 11/26/2024 12:07 PM EDT [facility] Chloride 107 96 - 110 mmol/L LAB CHEMISTRY METHOD 11/26/2024 12:07 PM EDT [facility] CO2 25 21 - 32 mmol/L LAB CHEMISTRY METHOD 11/26/2024 12:07 PM EDT [facility] Anion Gap 8 3 - 11 LAB CHEMISTRY METHOD 11/26/2024 12:[address] [facility] Glucose 81 70 - 100 mg/dL LAB CHEMISTRY METHOD 11/26/2024 12:[address] [facility] BUN 23 5 - 25 mg/dL LAB CHEMISTRY METHOD 11/26/2024 12:[address] [facility] Creatinine 1.35(H) 0.70 - 1.30 mg/dL LAB CHEMISTRY METHOD 11/26/2024 12:[address] [facility] eGFR 53(L) >=60 mL/min/1. 73m2 LAB CHEMISTRY METHOD 11/26/2024 12:[address] [facility] Comment:Calculation based on the Chronic Kidney Disease Epidemiology Collaboration (CKD-EPI) equation refit without adjustment for race. BUN/Creatinine Ratio 17.0 LAB CHEMISTRY METHOD 11/26/2024 12:[address] [facility] Calcium 8.3(L) 8.5 - 10.5 mg/dL LAB CHEMISTRY METHOD 11/26/2024 12:07 [facility] AST (SGOT) 16 10 - 42 unit/L LAB CHEMISTRY METHOD 11/26/2024 12:07 [facility] ALT (SGPT) 13 10 - 60 unit/L LAB CHEMISTRY METHOD 11/26/2024 12:[address] [facility] Alkaline Phosphatase 98 42 - 121 unit/L LAB CHEMISTRY METHOD 11/26/2024 12:[address] [facility] Total Protein 6.9 6.0 - 8.0 g/dL LAB CHEMISTRY METHOD 11/26/2024 12:[address] [facility] Albumin 3.7 3.2 - 5.0 g/dL LAB CHEMISTRY METHOD 11/26/2024 12:[address] [facility] Total Bilirubin 0.4 0.0 - 1.4 mg/dL LAB CHEMISTRY METHOD 11/26/2024 12:07 PM EDT [facility] Blood Venous blood specimen / Unknown Venipuncture / Unknown 11/26/2024 7:08 AM EDT 11/26/2024 9:46 AM EDT [facility] BLOOD ORDERABLES Juanita l Result [facility] [address] [place] [address], * (ABNORMAL) Complete blood count (11/26/2024 7:08 AM EDT) WBC 7.8 4.8 - 10.8 K/mcL LAB HEMETOLOGY METHOD 11/26/2024 10:[address] [facility] RBC 4.00(L) 4.50 - 5.50 M/mcL LAB HEMETOLOGY METHOD 11/26/2024 10:[address] [facility] Hemoglobin 11.5(L) 13.5 - 17.5 g/dL LAB HEMETOLOGY METHOD 11/26/2024 10:[address] [facility] Hematocrit 35.0(L) 42.0 - 54.0 % LAB HEMETOLOGY METHOD 11/26/2024 10:[address] [facility] MCV 87.1 79.0 - 98.0 FL LAB HEMETOLOGY METHOD [facility] MCH 28.6 27.0 - 32.0 pcg LAB HEMETOLOGY METHOD 11/26/2024 10:[address] [facility] MCHC 32.9 32.0 - 37.0 g/dL LAB HEMETOLOGY METHOD 11/26/2024 10:[address] [facility] RDW 15.3(H) 11.0 - 15.0 % LAB HEMETOLOGY METHOD 11/26/2024 10:42 AM EDT [facility] Platelets 222 130 - 400 K/mcL LAB HEMETOLOGY METHOD 11/26/2024 10:42 AM EDT [facility] MPV 9.7 7.0 - 11.0 FL LAB HEMETOLOGY METHOD 11/26/2024 10:42 AM EDT [facility] NRBC 0.0 <1.0 % LAB HEMETOLOGY METHOD 11/26/2024 10:42 AM EDT [facility] NRBC Absolute 0.00 <0.10 K/mcL LAB HEMETOLOGY METHOD 11/26/2024 10:42 AM EDT [facility] Blood Venous blood specimen / Unknown Venipuncture / Unknown 11/26/2024 7:08 AM EDT 11/26/2024 9:46 AM EDT [facility] BLOOD ORDERABLES Juanita l Result [facility] [address] [place] [address], documented in this encounter Visit Diagnoses Diagnosis Essential (primary) hypertension Unspecified essential hypertension Unspecified atrial fibrillation (CMS/HCC V24, CMS/HCC V28) Chronic kidney disease, unspecified Benign prostatic hyperplasia without lower urinary tract symptoms documented in this encounter Care Teams Spray Operator Relationship Specialty Start Date End Date Odell Velasco MD [address] [facility] [address] [place], [place] PCP - General Internal Medicine 07/14/14 documented as of this encounter
--- OUTSIDE RECORDS SUMMARY | 2025-01-06 13:23 | XMS_ITS | Encounter Summary ---
Author Organization [facility] Address [id number] [place] [id number] Care Team Providers Care Press Operator [employer] Name Role Phone Odell Velasco MD Primary Care Provider Encounter Details Date Type Department Care Team (Late st Contact Info) Description 06/11/[address] [facility] - Main Lab [address] [facility] [place] [address] Hay Diaz [facility] [address] [facility] [address] [place] [address] Heart failure, unspecified (CMS/HCC V24, CMS/HCC V28); Hyperlipidemia, unspecified; Benign prostatic hyperplasia without lower urinary tract symptoms; Essential (primary) hypertension Social History Tobacco Use Types Packs/Day Years [...] Procedure Name Priority Date/Time Associated Diagnosis Comments LIPID PANEL WITH REFLEX TO DIRECT LDL Routine 06/11/2024 5:52 AM EST Heart failure, unspecified (CMS/HCC) Hyperlipidemia, unspecified Benign prostatic hyperplasia without lower urinary tract symptoms Essential (primary) hypertension PROSTATE SPECIFIC ANTIGEN DIAGNOSTIC Routine 06/11/2024 5:52 AM EST Heart failure, unspecified (CMS/HCC) Hyperlipidemia, unspecified Benign prostatic hyperplasia without lower urinary tract symptoms Essential (primary) hypertension COMPLETE BLOOD COUNT Routine 06/11/2024 5:52 AM EST Heart failure, unspecified (CMS/HCC) Hyperlipidemia, unspecified Benign prostatic hyperplasia without lower urinary tract symptoms Essential (primary) hypertension COMPREHENSIVE METABOLIC PANEL Routine 06/11/2024 5:52 AM EST Heart failure, unspecified (CMS/HCC) Hyperlipidemia, unspecified Benign prostatic hyperplasia without lower urinary tract symptoms Essential (primary) hypertension documented in this encounter Results * (ABNORMAL) Prostate specific antigen diagnostic (06/11/2024 5:52 AM EST) PSA 4.93(H) 0.00 - 4.00 ng/mL LAB CHEMISTRY METHOD 06/11/2024 12:06 PM EST [facility] Blood Venous blood specimen / Unknown Venipuncture / Unknown 06/11/2024 5:52 AM EST 06/11/2024 11:59 AM EST Narrative [facility] - 06/11/2024 12:06 PM EST The Siemens Advia Centaur Chemiluminescent Immunoassay is used. Results obtained with different assay methods or kits cannot be used interchangeably. Results cannot be interpreted as absolute evidence of the presence or absence of malignant disease. [facility] LAB BLOOD ORDERABLES Juanita l Result [facility] [address] [place] [address], * (ABNORMAL) Lipid panel with reflex to direct LDL (06/11/2024 5:52 AM EST) Cholesterol 111 0 - 200 mg/dL LAB CHEMISTRY METHOD 06/11/2024 12:17 PM EST [facility] Triglycerides 107 0 - 150 mg/dL LAB CHEMISTRY METHOD 06/11/2024 12:17 PM EST [facility] HDL 25(L) >=40 mg/dL LAB CHEMISTRY METHOD 06/11/2024 12:17 PM EST [facility] LDL Calculated 65 0 - 100 mg/dL LAB CHEMISTRY METHOD 06/11/2024 12:17 PM [facility] VLDL Cholesterol Hu 21.4 mg/dL LAB CHEMISTRY METHOD 06/11/2024 12:17 PM [facility] Non HDL Chol. (LDL+VLDL) 86 <145 mg/dL LAB CHEMISTRY METHOD 06/11/2024 12:17 PM [facility] Chol/HDL Ratio 4.4 0.0 - 4.4 LAB CHEMISTRY METHOD 06/11/2024 12:17 PM [facility] Blood Venous blood specimen / Unknown Venipuncture / Unknown 06/11/2024 5:52 AM EST 06/11/2024 11:59 AM EST [facility] BLOOD ORDERABLES Juanita l Result [facility] [address] [place] [address], * (ABNORMAL) Comprehensive metabolic panel (06/11/2024 5:52 AM EST) Sodium 138 133 - 145 mmol/L LAB CHEMISTRY METHOD 06/11/2024 12:17 PM [facility] Potassium 4.4 3.5 - 5.5 mmol/L LAB CHEMISTRY METHOD 06/11/2024 12:17 PM [facility] Chloride 106 96 - 110 mmol/L LAB CHEMISTRY METHOD 06/11/2024 12:17 PM [facility] CO2 25 21 - 32 mmol/L LAB CHEMISTRY METHOD 06/11/2024 12:17 PM [facility] Anion Gap 7 3 - 11 LAB CHEMISTRY METHOD 06/11/2024 12:17 PM [facility] Glucose 84 70 - 100 mg/dL LAB CHEMISTRY METHOD 06/11/2024 12:17 PM [facility] BUN 16 5 - 25 mg/dL LAB CHEMISTRY METHOD 06/11/2024 12:17 PM [facility] Creatinine 1.38(H) 0.70 - 1.30 mg/dL LAB CHEMISTRY METHOD 06/11/2024 12:17 PM [facility] eGFR 52(L) >=60 mL/min/1. 73m2 LAB CHEMISTRY METHOD 06/11/2024 12:17 PM [facility] Comment:Calculation based on the Chronic Kidney Disease Epidemiology Collaboration (CKD-EPI) equation refit without adjustment for race. BUN/Creatinine Ratio 11.6 LAB CHEMISTRY METHOD 06/11/2024 12:17 PM [facility] Calcium 8.6 8.5 - 10.5 mg/dL LAB CHEMISTRY METHOD 06/11/2024 12:17 PM [facility] AST (SGOT) 10 10 - 42 unit/L LAB CHEMISTRY METHOD 06/11/2024 12:17 PM [facility] ALT (SGPT) 13 10 - 60 unit/L LAB CHEMISTRY METHOD 06/11/2024 12:17 PM [facility] Alkaline Phosphatase 82 42 - 121 unit/L LAB CHEMISTRY METHOD 06/11/2024 12:17 PM [facility] Total Protein 7.0 6.0 - 8.0 g/dL LAB CHEMISTRY METHOD 06/11/2024 12:17 PM [facility] Albumin 3.2 3.2 - 5.0 g/dL LAB CHEMISTRY METHOD 06/11/2024 12:17 PM [facility] Total Bilirubin 0.4 0.0 - 1.4 mg/dL LAB CHEMISTRY METHOD 06/11/2024 12:17 PM [facility] Blood Venous blood specimen / Unknown Venipuncture / Unknown 06/11/2024 5:52 AM EST 06/11/2024 11:59 AM EST [facility] BLOOD ORDERABLES Juanita l Result [facility] [address] [place] [address], [place] [phone] * (ABNORMAL) Complete blood count (06/11/2024 5:52 AM EST) [facility] WBC 7.4 4.8 - 10.8 K/mcL LAB HEMETOLOGY METHOD 06/11/2024 12:01 PM [facility] RBC 3.70(L) 4.50 - 5.50 M/mcL LAB HEMETOLOGY METHOD 06/11/2024 12:01 PM [facility] Hemoglobin 10.6(L) 13.5 - 17.5 g/dL LAB HEMETOLOGY METHOD 06/11/2024 12:01 PM [facility] Hematocrit 32.3(L) 42.0 - 54.0 % LAB HEMETOLOGY METHOD 06/11/2024 12:01 PM [facility] MCV 88.3 79.0 - 98.0 FL LAB HEMETOLOGY METHOD 06/11/2024 12:01 PM [facility] MCH 29.0 27.0 - 32.0 pcg LAB HEMETOLOGY METHOD 06/11/2024 12:01 PM [facility] MCHC 32.8 32.0 - 37.0 g/dL LAB HEMETOLOGY METHOD 06/11/2024 12:01 PM [facility] RDW 14.1 11.0 - 15.0 % LAB HEMETOLOGY METHOD 06/11/2024 12:01 PM [facility] Platelets 278 130 - 400 K/mcL LAB HEMETOLOGY METHOD 06/11/2024 12:01 PM [facility] MPV 10.3 7.0 - 11.0 FL LAB HEMETOLOGY METHOD 06/11/2024 12:01 PM [facility] NRBC 0.0 <1.0 % LAB HEMETOLOGY METHOD 06/11/2024 12:01 PM EST [facility] NRBC Absolute 0.00 <0.10 K/mcL LAB HEMETOLOGY METHOD 06/11/2024 12:01 PM EST [facility] Blood Venous blood specimen / Unknown Venipuncture / Unknown 06/11/2024 5:52 AM EST 06/11/2024 12:00 PM EST us [facility] BLOOD ORDERABLES Juanita l Result [facility] [address] [place] [address], documented in this encounter Visit Diagnoses Diagnosis Heart failure, unspecified (CMS/HCC V24, CMS/HCC V28) Heart failure, unspecified Hyperlipidemia, unspecified Benign prostatic hyperplasia without lower urinary tract symptoms Essential (primary) hypertension Unspecified essential hypertension documented in this encounter Care Teams Press Operator [employer] Relationship Specialty Start Date End Date Odell Velasco MD [address] PCP - General Internal Medicine 07/14/14 documented as of this encounter
--- OUTSIDE RECORDS SUMMARY | 2025-01-06 13:23 | XMS_ITS | Clinical Summary ---
Author Organization [facility] Address [address] [place] [address] Care Team Providers Care Incident Manager Name Role Phone Odell Velasco MD Primary Care Provider [phone] Medications Medication Sig Dispensed Refills Start Date End Date Status amLODIPine (NORVASC) tablet 5 mg Take 5 mg by mouth daily. 0 12/14/2020 Active acetaminophen (TYLENOL) 325 MG tablet Take 650 mg by mouth. 0 Active celecoxib (CeleBREX) 200 MG capsule TAKE 1 CAPSULE BY MOUTH EVERY DAY WITH FOOD OR MILK 0 11/18/2020 Active escitalopram (LEXAPRO) 5 MG tablet Take 5 mg by mouth daily. as directed 0 01/06/2021 Active furosemide (LASIX) 20 MG tablet Take 20 mg by mouth daily. 0 01/05/2021 Active lisinopril (PRINIVIL,ZESTRIL) tablet 20 mg Take 20 mg by mouth daily. 0 10/21/2020 Active levoFLOXacin (LEVAQUIN) 250 MG tablet 0 01/06/2021 Active omeprazole (PriLOSEC) 20 MG capsule Take 20 mg by mouth daily. 0 11/11/2020 Active rosuvastatin (CRESTOR) tablet 20 mg Take 20 mg by mouth every night at bedtime. 0 01/05/2021 Active tamsulosin (FLOMAX) 0.4 MG CAPS TAKE 1 CAPSULE BY MOUTH TWICE DAILY 30 MINUTES AFTER A MEAL 0 12/11/2020 Active triamcinolone (KENALOG) 0.1 % cream APPLY TOPICALLY TO THE AFFECTED AREA TWICE DAILY 0 10/29/2020 Active vancomycin (VANCOCIN) 125 MG capsule 0 11/10/2020 Active traMADol (ULTRAM) 50 MG tablet TAKE 1 TABLET BY MOUTH THREE TIMES DAILY FOR 7 DAYS NEEDED 0 12/31/2020 Active methylPREDNISolone (MEDROL DOSEPACK) 4 MG tablet follow package directions 21 tablet 0 01/27/2021 Active Family History Medical History Relation Name Comments Cancer Mother Relation Name Status Comments Mother Social History Tobacco Use Types Packs/Day Years Used Date Smoking Tobacco: Never Smokeless Tobacco: Never Alcohol Use Standard Drinks/Week Comments Never 0 (1 standard drink = 0.6 oz pur e alcohol) Sex and Gender Information Value Date Recorded Sex Assigned at Not on file Gender Identity Not on file Sexual Orientation Not on file Job Start Date Occupation Industry Not on file Not on file Not on file Last Filed Vital Signs Vital Sign Reading Time Taken Comments Blood Pressure - - Pulse - - Temperature - - Respiratory Rate - - Oxygen Saturation - - Inhaled Oxygen Concentration - - Weight 93.4 kg (206 lb) 06/11/2021 8:42 AM EST Height 165.1 cm (5' 5 ) 06/11/2021 8:42 AM EST Body Mass Index 34.28 06/11/2021 8:42 AM EST Plan of Treatment Health Maintenance Due Date Last Done Comments Hepatitis C Screening 1945 COVID-19 Vaccine (#1) 02/07/1946 Depression Screening 1957 BMI Counseling 08/09/1963 Preventative Health Evaluation 08/09/1963 DTap / Tdap / Td (1 - Tdap) 1964 Shingrix-Zoster Vaccine (1 of 2) 08/09/1995 Fall Risk Assessment 2010 Pneumococcal Vaccine (1 of 1 - PCV) 2010 RSV Adult > 60+ Yrs or Pregn ant (1 - 1-dose 75+ series) 2020 Influenza Vaccine (#1) 2024 Hepatitis B Vaccines Aged Out No long er eligible based on patient's age to complete this topic RSV Ped < 20 months Aged Out No longe r eligible based on patient's age to complete this topic Care Teams Incident Manager Relationship Specialty Start Date End Date Odell Velasco MD [address] [address] PCP - General Internal Medicine 12/15/20
--- OUTSIDE RECORDS SUMMARY | 2025-01-06 13:23 | XMS_ITS | Clinical Summary ---
Author Organization [address] [facility] Address [address] [place] [address] Phone Care Team Providers Care Stamp Maker Name Role Phone Odell Velasco MD Primary Care Provider Encounters Date Type Department Care Team Description 11/26/2024 Lab Requisition [facility] - Main Lab [address] [facility] [place] [address] Hay Diaz PA Essential (primary) hypertension; Unspecified atrial fibrillation (CMS/HCC V24, CMS/HCC V28); Chronic kidney disease, unspecified; Benign prostatic hyperplasia without lower urinary tract symptoms from Last 3 Months Surgical History Surgery Date Site/Laterality Comments KNEE SURGERY PROCEDURE:KNEE SURGERY Medical History Medical History Date Comments High blood pressure DX:High bloo d pressure Family History Medical History Relation Name Comments [...] on file Sexual Orientation Not on file Obstetrics History Plan of Treatment Health Maintenance Due Date Last Done Comments DTaP,Tdap,and Td Vaccines (1 - Tdap) 1964 Pneumococcal Vaccine: 50+ Years (1 of 2 - PCV) 1964 Zoster Vaccines (1 of 2) 08/09/1995 RSV Immunization Adult Patients (1 - 1-dose 75+ series) 2020 Falls Risk Assessment 03/27/2022 Hepatitis C Screening 03/27/2022 Medicare Annual Wellness Visit 03/27/2022 Social Influencers of Health Screening 03/27/2022 Depression Screening 04/24/2024 COVID-19 Vaccine ( - 2023-2 5 season) 2024 Influenza Vaccine (#1) 2024 Hypertension/CHF/CAD Annual BMP Blood Test 11/26/2025 11/26/2024, 06/11/2024 Cholesterol Screening (Lipid Panel) 06/11/2029 06/11/2024 HIB Vaccines Aged Out No longer eligi ble based on patient's age to complete this topic HPV Vaccines Aged Out No longer eligi ble based on patient's age to complete this topic Hepatitis A Vaccines Aged Out No long er eligible based on patient's age to complete this topic Hepatitis B Vaccines Aged Out No long er eligible based on patient's age to complete this topic IPV Vaccines Aged Out No longer eligi ble based on patient's age to complete this topic MMR Vaccines Aged Out No longer eligi ble based on patient's age to complete this topic Meningococcal ACWY Vaccine Aged Out N o longer eligible based on patient's age to complete this topic Meningococcal B Vaccine Aged Out No l onger eligible based on patient's age to complete this topic RSV Immunization Patients Under 20 months Aged Out No longer eligible b ased on patient's age to complete this topic Varicella Vaccines Aged Out No longer eligible based on patient's age to complete this topic Procedures Procedure Name Priority Date/Time Associated Diagnosis [...] prostatic hyperplasia without lower urinary tract symptoms LIPID PANEL WITH REFLEX TO DIRECT LDL Routine 06/11/2024 5:52 AM EST Heart failure, unspecified (CMS/HCC) Hyperlipidemia, unspecified Benign prostatic hyperplasia without lower urinary tract symptoms Essential (primary) hypertension from Last 3 Months or Most Recently Relevant to Health Maintenance Results * (ABNORMAL) Prostate specific antigen diagnostic (11/26/2024 7:08 AM EDT) PSA 4.40(H) 0.00 - 4.00 ng/mL LAB CHEMISTRY METHOD 11/26/2024 1:16 PM EDT [facility] Blood Venous blood specimen / Unknown Venipuncture / Unknown 11/26/2024 7:08 AM EDT 11/26/2024 9:46 AM EDT Narrative [facility] - 11/26/2024 1:16 PM EDT The Siemens Advia Vantosaur Chemiluminescent Immunoassay is used. Results obtained with different assay methods or kits cannot be used interchangeably. Results cannot be interpreted as absolute evidence of the presence or absence of malignant disease. us [facility] LAB BLOOD ORDERABLES Juanita solano Result [facility] [address] [place] [address], * (ABNORMAL) Complete blood count (11/26/2024 7:08 AM EDT) WBC 7.8 4.8 - 10.8 K/mcL LAB HEMETOLOGY METHOD 11/26/2024 10:42 AM EDT [facility] RBC 4.00(L) 4.50 - 5.50 M/mcL LAB HEMETOLOGY METHOD 11/26/2024 10:42 AM EDT [facility] Hemoglobin 11.5(L) 13.5 - 17.5 g/dL LAB HEMETOLOGY METHOD 11/26/2024 10:42 AM EDT [facility] Hematocrit 35.0(L) 42.0 - 54.0 % LAB HEMETOLOGY METHOD 11/26/2024 10:42 AM EDT [facility] MCV 87.1 79.0 - 98.0 FL LAB HEMETOLOGY METHOD 11/26/2024 10:42 AM EDT [facility] MCH 28.6 27.0 - 32.0 pcg LAB HEMETOLOGY METHOD 11/26/2024 10:42 AM EDT [facility] MCHC 32.9 32.0 - 37.0 g/dL LAB HEMETOLOGY METHOD 11/26/2024 10:42 AM EDT [facility] RDW 15.3(H) 11.0 - 15.0 % LAB HEMETOLOGY METHOD 11/26/2024 10:42 AM [facility] Platelets 222 130 - 400 K/mcL LAB HEMETOLOGY METHOD 11/26/2024 10:42 AM EDT [facility] MPV 9.7 7.0 - 11.0 FL LAB HEMETOLOGY METHOD 11/26/2024 10:42 AM EDT [facility] NRBC 0.0 <1.0 % LAB HEMETOLOGY METHOD 11/26/2024 10:42 AM [facility] NRBC Absolute 0.00 <0.10 K/mcL LAB HEMETOLOGY METHOD 11/26/2024 10:42 AM T [facility] Blood Venous blood specimen / Unknown Venipuncture / Unknown 11/26/2024 7:08 AM EDT 11/26/2024 9:46 AM EDT us [facility] BLOOD ORDERABLES Juanita solano Result [facility] [address] [place] [address], * (ABNORMAL) Comprehensive metabolic panel (11/26/2024 7:08 AM EDT) Sodium 140 133 - 145 mmol/L LAB CHEMISTRY METHOD 11/26/2024 12:07 PM [facility] Potassium 4.0 3.5 - 5.5 mmol/L LAB CHEMISTRY METHOD 11/26/2024 12:07 PM [facility] Chloride 107 96 - 110 mmol/L LAB CHEMISTRY METHOD 11/26/2024 12:07 PM [facility] CO2 25 21 - 32 mmol/L LAB CHEMISTRY METHOD 11/26/2024 12:07 PM [facility] Anion Gap 8 3 - 11 LAB CHEMISTRY METHOD 11/26/2024 12:07 PM [facility] Glucose 81 70 - 100 mg/dL LAB CHEMISTRY METHOD 11/26/2024 12:07 PM [facility] BUN 23 5 - 25 mg/dL LAB CHEMISTRY METHOD 11/26/2024 12:07 PM [facility] Creatinine 1.35(H) 0.70 - 1.30 mg/dL LAB CHEMISTRY METHOD 11/26/2024 12:07 PM [facility] eGFR 53(L) >=60 mL/min/1. 73m2 LAB CHEMISTRY METHOD 11/26/2024 12:07 PM [facility] Comment:Calculation based on the Chronic Kidney Disease Epidemiology Collaboration (CKD-EPI) equation refit without adjustment for race. BUN/Creatinine Ratio 17.0 LAB CHEMISTRY METHOD 11/26/2024 12:07 PM [facility] Calcium 8.3(L) 8.5 - 10.5 mg/dL LAB CHEMISTRY METHOD 11/26/2024 12:07 PM [facility] AST (SGOT) 16 10 - 42 unit/L LAB CHEMISTRY METHOD 11/26/2024 12:07 PM [facility] ALT (SGPT) 13 10 - 60 unit/L LAB CHEMISTRY METHOD 11/26/2024 12:07 PM EDT [facility] Alkaline Phosphatase 98 42 - 121 unit/L LAB CHEMISTRY METHOD 11/26/2024 12:07 PM T [facility] Total Protein 6.9 6.0 - 8.0 g/dL LAB CHEMISTRY METHOD 11/26/2024 12:07 PM [facility] Albumin 3.7 3.2 - 5.0 g/dL LAB CHEMISTRY METHOD 11/26/2024 12:07 PM [facility] Total Bilirubin 0.4 0.0 - 1.4 mg/dL LAB CHEMISTRY METHOD 11/26/2024 12:07 PM [facility] Blood Venous blood specimen / Unknown Venipuncture / Unknown 11/26/2024 7:08 AM EDT 11/26/2024 9:46 AM EDT [facility] BLOOD ORDERABLES Juanita l Result [facility] [address] [place] [address], [place] [phone] * (ABNORMAL) Lipid panel with reflex to direct LDL (06/11/2024 5:52 AM EST) Cholesterol 111 0 - 200 mg/dL LAB CHEMISTRY METHOD 06/11/2024 12:17 PM [facility] Triglycerides 107 0 - 150 mg/dL LAB CHEMISTRY METHOD 06/11/2024 12:17 PM [facility] HDL 25(L) >=40 mg/dL LAB CHEMISTRY METHOD 06/11/2024 12:17 PM [facility] LDL Calculated 65 0 - 100 mg/dL LAB CHEMISTRY METHOD 06/11/2024 12:17 PM [facility] VLDL Cholesterol Hu 21.4 mg/dL LAB CHEMISTRY METHOD 06/11/2024 12:17 PM [facility] Non HDL Chol. (LDL+VLDL) 86 <145 mg/dL LAB CHEMISTRY METHOD 06/11/2024 12:17 PM EST [facility] Chol/HDL Ratio 4.4 0.0 - 4.4 LAB CHEMISTRY METHOD 06/11/2024 12:17 PM EST [facility] Blood Venous blood specimen / Unknown Venipuncture / Unknown 06/11/2024 5:52 AM EST 06/11/2024 11:59 AM EST us [facility] BLOOD ORDERABLES Juanita l Result [facility] [address] [place] [address], from Last 3 Months or Most Recently Relevant to Health Maintenance Insurance MEDICARE MEDICAID - [place] Care Teams Stamp Maker Relationship Specialty Start Date End Date Odell Velasco MD [address] PCP - General Internal Medicine 07/14/14
== END 2025-01-06 11:02 | disposition home or self-care (01) ==
LOC: HO.HCS 10:28
PROVIDERS: PCP Internal Medicine; Visit Provider Internal Medicine Cardiovascular Disease
DX: I48.0 Paroxysmal atrial fibrillation (principal); I10 Essential (primary) hypertension
CPT/HCPCS: 93010; 99214; G2211

== ENCOUNTER → 2025-01-06 10:27 | Outpatient (BNVA) | payer MEDICARE, MEDICAID, SELFPAY | PROVIDERS: PCP Internal Medicine; Visit Provider Internal Medicine Cardiovascular Disease | DX: I48.0 Paroxysmal atrial fibrillation (principal); I10 Essential (primary) hypertension | CPT/HCPCS: 93005; 99212 ==

== ENCOUNTER 2025-01-21 09:39 | Outpatient (REF) | payer MEDICARE, MEDICAID, SELFPAY ==
--- NOTE | ~2025-01-21 | US_ITS ---
CLINICAL HISTORY: BPH and elevated PSA US retroperitoneum Comparison: None provided Findings: Suboptimal exam due to limited acoustic window. Right kidney normal size and echotexture, 11.4 cm length. No calculus or hydronephrosis. 2 simple cysts at the interpolar region, the largest cyst measures 3.3 x 3.5 x 3.1. Normal color flow. Left kidney normal size and echotexture, 11.8 cm in length. Several simple cysts are visualized, dominant cyst is 1.9 cm at the interpolar region. No hydronephrosis, or calculus. Normal color flow. Urinary bladder is unremarkable. Prevoid volume 102 mL. Postvoid volume is not obtained, per potash flaker note, patient could not void. Ureteral jets are visualized bilaterally Prostate is partially visualized, the inferior portion is obscured by shadowing, roughly measures 5.0 x 3.8 x 5.3 cm, 53 mL. Impression: 1. Bilateral renal cysts. 2. Prostatomegaly. This document has been electronically signed by: Greta Yeager MD on 01/22/2025 12:20:01
--- OUTSIDE RECORDS SUMMARY | 2025-01-21 10:33 | XMS_ITS | Clinical Summary ---
Author Organization [facility] Facility Address [address] [address] Care Team Providers Care Grades 1 Thru 5 Teacher Name Role Phone Unavailable Primary Care Provider [...] age to complete this topic Insurance Medicare [facility] [address] [place] [id number] Medicare [facility]
--- OUTSIDE RECORDS SUMMARY | 2025-01-21 10:33 | XMS_ITS | Clinical Summary ---
Author Organization [address] [facility] Address [address] [place] [address] Phone Care Team Providers Care Rn Angiography Name Role Phone Odell Velasco MD Primary Care Provider Encounters Date Type Department Care Team Description 11/26/2024 Lab Requisition [facility] - Main Lab 299 [facility] [place] [address] Hay Diaz PA Essential (primary) [...] LAB CHEMISTRY METHOD 11/26/2024 1:16 PM EDT [facility] Blood Venous blood specimen / Unknown Venipuncture / Unknown 11/26/2024 7:08 AM EDT 11/26/2024 9:46 AM EDT Narrative [facility] - 11/26/2024 1:16 PM EDT The Siemens Advia [employer]aur Chemiluminescent Immunoassay is used. Results obtained with different assay methods or kits cannot be used interchangeably. Results cannot be interpreted as absolute evidence of the presence or absence of malignant disease. us [facility] LAB BLOOD ORDERABLES Juanita solano Result [facility] [address] [place] [address], * (ABNORMAL) Complete blood count (11/26/2024 7:08 AM EDT) WBC 7.8 4.8 - 10.8 K/mcL LAB HEMETOLOGY METHOD 11/26/2024 10:42 AM EDT [facility] RBC 4.00(L) 4.50 - 5.50 M/mcL LAB HEMETOLOGY METHOD 11/26/2024 10:42 AM EDT [facility] Hemoglobin 11.5(L) 13.5 - 17.5 g/dL LAB HEMETOLOGY METHOD 11/26/2024 10:42 AM EDT [facility] Hematocrit 35.0(L) 42.0 - 54.0 % LAB HEMETOLOGY METHOD 11/26/2024 10:42 AM EDT [facility] MCV 87.1 79.0 - 98.0 FL LAB HEMETOLOGY METHOD 11/26/2024 10:42 AM EDT [facility] MCH 28.6 27.0 - 32.0 pcg LAB HEMETOLOGY METHOD 11/26/2024 10:42 AM EDT [facility] MCHC 32.9 32.0 - 37.0 g/dL LAB HEMETOLOGY METHOD 11/26/2024 10:42 AM EDT [facility] RDW 15.3(H) 11.0 - 15.0 % LAB HEMETOLOGY METHOD 11/26/2024 10:42 AM [facility] Platelets 222 130 - 400 K/mcL LAB HEMETOLOGY METHOD 11/26/2024 10:42 AM EDT [facility] MPV 9.7 7.0 - 11.0 FL LAB HEMETOLOGY METHOD 11/26/2024 10:42 AM EDT [facility] NRBC 0.0 <1.0 % LAB HEMETOLOGY METHOD 11/26/2024 10:42 AM [facility] NRBC Absolute 0.00 <0.10 K/mcL LAB HEMETOLOGY METHOD 11/26/2024 10:42 AM T [facility] Blood Venous blood specimen / Unknown Venipuncture / Unknown 11/26/2024 7:08 AM EDT 11/26/2024 9:46 AM EDT us [facility] LAB BLOOD ORDERABLES Juanita solano Result [facility] [address] [place] [address], * (ABNORMAL) Comprehensive metabolic panel (11/26/2024 7:08 AM EDT) Sodium 140 133 - 145 mmol/L LAB CHEMISTRY METHOD 11/26/2024 12:07 PM [facility] Potassium 4.0 3.5 - 5.5 mmol/L LAB CHEMISTRY METHOD 11/26/2024 12:07 PM [facility] Chloride 107 96 - 110 mmol/L LAB CHEMISTRY METHOD 11/26/2024 12:07 PM [facility] CO2 25 21 - 32 mmol/L LAB CHEMISTRY METHOD 11/26/2024 12:07 PM [facility] Anion Gap 8 3 - 11 LAB CHEMISTRY METHOD 11/26/2024 12:07 PM [facility] Glucose 81 70 - 100 mg/dL LAB CHEMISTRY METHOD 11/26/2024 12:07 PM [facility] BUN 23 5 - 25 mg/dL LAB CHEMISTRY METHOD 11/26/2024 12:07 PM [facility] Creatinine 1.35(H) 0.70 - 1.30 mg/dL LAB CHEMISTRY METHOD 11/26/2024 12:07 PM [facility] eGFR 53(L) >=60 mL/min/1. 73m2 LAB CHEMISTRY METHOD 11/26/2024 12:07 PM [facility] Comment:Calculation based on the Chronic Kidney Disease Epidemiology Collaboration (CKD-EPI) equation refit without adjustment for race. BUN/Creatinine Ratio 17.0 LAB CHEMISTRY METHOD 11/26/2024 12:07 PM [facility] Calcium 8.3(L) 8.5 - 10.5 mg/dL LAB CHEMISTRY METHOD 11/26/2024 12:07 PM [facility] AST (SGOT) 16 10 - 42 unit/L LAB CHEMISTRY METHOD 11/26/2024 12:07 PM [facility] ALT (SGPT) 13 10 - 60 unit/L LAB CHEMISTRY METHOD 11/26/2024 12:07 PM EDT [facility] Alkaline Phosphatase 98 42 - 121 unit/L LAB CHEMISTRY METHOD 11/26/2024 12:07 PM T [facility] Total Protein 6.9 6.0 - 8.0 g/dL LAB CHEMISTRY METHOD 11/26/2024 12:07 PM [facility] Albumin 3.7 3.2 - 5.0 g/dL LAB CHEMISTRY METHOD 11/26/2024 12:07 PM [facility] Total Bilirubin 0.4 0.0 - 1.4 mg/dL LAB CHEMISTRY METHOD 11/26/2024 12:07 PM [facility] Blood Venous blood specimen / Unknown Venipuncture / Unknown 11/26/2024 7:08 AM EDT 11/26/2024 9:46 AM EDT [facility] LAB BLOOD ORDERABLES Juanita l Result [facility] [address] [place] [address], [place] [phone] * (ABNORMAL) Lipid panel with reflex to direct LDL (06/11/2024 5:52 AM EST) Cholesterol 111 0 - 200 mg/dL LAB CHEMISTRY METHOD 06/11/2024 12:17 PM [facility] Triglycerides 107 0 - 150 mg/dL LAB CHEMISTRY METHOD 06/11/2024 12:17 PM [facility] HDL 25(L) >=40 mg/dL LAB CHEMISTRY METHOD 06/11/2024 12:17 PM [facility] LDL Calculated 65 0 - 100 mg/dL LAB CHEMISTRY METHOD 06/11/2024 12:17 PM [facility] VLDL Cholesterol Hu 21.4 mg/dL LAB CHEMISTRY METHOD 06/11/2024 12:17 PM [facility] Non HDL Chol. (LDL+VLDL) 86 <145 mg/dL LAB CHEMISTRY METHOD 06/11/2024 12:17 PM EST [facility] Chol/HDL Ratio 4.4 0.0 - 4.4 LAB CHEMISTRY METHOD 06/11/2024 12:17 PM EST [facility] Blood Venous blood specimen / Unknown Venipuncture / Unknown 06/11/2024 5:52 AM EST 06/11/2024 11:59 AM EST us [facility] LAB BLOOD ORDERABLES Juanita l Result [facility] [address] [place] [address], from Last 3 Months or Most Recently Relevant to Health Maintenance Insurance MEDICARE MEDICAID - [place] Care Teams Rn Angiography Relationship Specialty Start Date End Date Odell Velasco MD [address] PCP - General Internal Medicine 07/14/14
--- OUTSIDE RECORDS SUMMARY | 2025-01-21 10:33 | XMS_ITS ---
Author Name [facility] Organization Unknown Encounters Encounter Type Encounter Reason Primary Diagnosis Location Date Ambulatory [facility] [place] 09/07/2022
--- OUTSIDE RECORDS SUMMARY | 2025-01-21 10:33 | XMS_ITS | Encounter Summary ---
Author Organization [facility] Address [address] [place] [address] Care Team Providers Care Director Of Acquisitions Name Role Phone Odell Velasco MD Primary Care Provider Encounter Details Date Type Department Care Team (Late st Contact Info) Description 11/26/2024 Lab Requisition [facility] - Main Lab [address] [facility] [place] [address] Hay Diaz PA PCCP [address] [facility] [address] [place] [address] Essential (primary) hypertension; Unspecified atrial fibrillation (CMS/HCC [...] LAB CHEMISTRY METHOD 11/26/2024 1:16 PM EDT [facility] Blood Venous blood specimen / Unknown Venipuncture / Unknown 11/26/2024 7:08 AM EDT 11/26/2024 9:46 AM EDT Narrative [facility] - 11/26/2024 1:16 PM EDT The Siemens Advia [employer]aur Chemiluminescent Immunoassay is used. Results obtained with different assay methods or kits cannot be used interchangeably. Results cannot be interpreted as absolute evidence of the presence or absence of malignant disease. us [facility] LAB BLOOD ORDERABLES Juanita solano Result [facility] [address] [place] [address], * (ABNORMAL) Comprehensive metabolic panel (11/26/2024 7:08 AM EDT) Sodium 140 133 - 145 mmol/L LAB CHEMISTRY METHOD 11/26/2024 12:07 PM EDT [facility] Potassium 4.0 3.5 - 5.5 mmol/L LAB CHEMISTRY METHOD 11/26/2024 12:07 PM EDT [facility] Chloride 107 96 - 110 mmol/L LAB CHEMISTRY METHOD 11/26/2024 12:07 PM EDT [facility] CO2 25 21 - 32 mmol/L LAB CHEMISTRY METHOD 11/26/2024 12:07 PM EDT [facility] Anion Gap 8 3 - 11 LAB CHEMISTRY METHOD 11/26/2024 12:07 PM [facility] Glucose 81 70 - 100 mg/dL LAB CHEMISTRY METHOD 11/26/2024 12:07 PM [facility] BUN 23 5 - 25 mg/dL LAB CHEMISTRY METHOD 11/26/2024 12:07 PM [facility] Creatinine 1.35(H) 0.70 - 1.30 mg/dL LAB CHEMISTRY METHOD 11/26/2024 12:07 PM [facility] eGFR 53(L) >=60 mL/min/1. 73m2 LAB CHEMISTRY METHOD 11/26/2024 12:07 PM [facility] Comment:Calculation based on the Chronic Kidney Disease Epidemiology Collaboration (CKD-EPI) equation refit without adjustment for race. BUN/Creatinine Ratio 17.0 LAB CHEMISTRY METHOD 11/26/2024 12:07 PM [facility] Calcium 8.3(L) 8.5 - 10.5 mg/dL LAB CHEMISTRY METHOD 11/26/2024 12:07 [facility] AST (SGOT) 16 10 - 42 unit/L LAB CHEMISTRY METHOD 11/26/2024 12:07 [facility] ALT (SGPT) 13 10 - 60 unit/L LAB CHEMISTRY METHOD 11/26/2024 12:07 PM [facility] Alkaline Phosphatase 98 42 - 121 unit/L LAB CHEMISTRY METHOD 11/26/2024 12:07 PM [facility] Total Protein 6.9 6.0 - 8.0 g/dL LAB CHEMISTRY METHOD 11/26/2024 12:07 PM [facility] Albumin 3.7 3.2 - 5.0 g/dL LAB CHEMISTRY METHOD 11/26/2024 12:07 PM [facility] Total Bilirubin 0.4 0.0 - 1.4 mg/dL LAB CHEMISTRY METHOD 11/26/2024 12:07 PM EDT [facility] Blood Venous blood specimen / Unknown Venipuncture / Unknown 11/26/2024 7:08 AM EDT 11/26/2024 9:46 AM EDT us [facility] LAB BLOOD ORDERABLES Juanita l Result [facility] [address] [place] [address], * (ABNORMAL) Complete blood count (11/26/2024 7:08 AM EDT) WBC 7.8 4.8 - 10.8 K/mcL LAB HEMETOLOGY METHOD 11/26/2024 10:42 AM [facility] RBC 4.00(L) 4.50 - 5.50 M/mcL LAB HEMETOLOGY METHOD 11/26/2024 10:42 AM [facility] Hemoglobin 11.5(L) 13.5 - 17.5 g/dL LAB HEMETOLOGY METHOD 11/26/2024 10:42 AM [facility] Hematocrit 35.0(L) 42.0 - 54.0 % LAB HEMETOLOGY METHOD 11/26/2024 10:42 AM [facility] MCV 87.1 79.0 - 98.0 FL LAB HEMETOLOGY METHOD 11/26/2024 10:[facility] MCH 28.6 27.0 - 32.0 pcg LAB HEMETOLOGY METHOD 11/26/2024 10:42 AM [facility] MCHC 32.9 32.0 - 37.0 g/dL LAB HEMETOLOGY METHOD 11/26/2024 10:42 AM [facility] RDW 15.3(H) 11.0 - 15.0 % LAB HEMETOLOGY METHOD 11/26/2024 10:42 AM EDT [facility] Platelets 222 130 - 400 K/mcL LAB HEMETOLOGY METHOD 11/26/2024 10:42 AM EDT [facility] MPV 9.7 7.0 - 11.0 FL LAB HEMETOLOGY METHOD 11/26/2024 10:42 AM EDT [facility] NRBC 0.0 <1.0 % LAB HEMETOLOGY METHOD 11/26/2024 10:42 AM EDT [facility] NRBC Absolute 0.00 <0.10 K/mcL LAB HEMETOLOGY METHOD 11/26/2024 10:42 AM EDT [facility] Blood Venous blood specimen / Unknown Venipuncture / Unknown 11/26/2024 7:08 AM EDT 11/26/2024 9:46 AM EDT [facility] LAB BLOOD ORDERABLES Juanita l Result [facility] [address] [place] [address], documented in this encounter Visit Diagnoses Diagnosis Essential (primary) hypertension Unspecified essential hypertension Unspecified atrial fibrillation (CMS/HCC V24, CMS/HCC V28) Chronic kidney disease, unspecified Benign prostatic hyperplasia without lower urinary tract symptoms documented in this encounter Care Teams Director Of Acquisitions Relationship Specialty Start Date End Date Odell Velasco MD [address] [facility] [address] [place], [place] PCP - General Internal Medicine 07/14/14 documented as of this encounter
--- OUTSIDE RECORDS SUMMARY | 2025-01-21 10:33 | XMS_ITS | Patient Health Record ---
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, Congenital (754.61) Active confirmed Problem Ingrowing nail (364583780) Ingrowing Nail (703.0) Active confirmed Plan Of Treatment Pending Test Test Name Order Date [id number] Plate 07/23/2012 25946- Debride <25 sq cm 08/06/2012 Insurance Providers Payer Name Payer Address Payer Phone Subscriber Number Group Number Insured Name Patient Relationship to Insured Coverage Start Date Coverage End Date Medicare [employer] [address] [place] [address] [id number] Thierno Maki Self - patient is the insured 1 Medicare [employer] [address] [place] [address] Thierno Maki Self - patient is the insured Medical (General) History Medical History History ICD Code chicken pox Surgical History Surgery Date(Month/Year) right knee replacement 2009
--- OUTSIDE RECORDS SUMMARY | 2025-01-21 10:33 | XMS_ITS | Clinical Summary ---
Author Organization [facility] Address [address] [place] [address] Care Team Providers Care Radiator Specialist Name Role Phone Odell Velasco MD Primary Care Provider [phone] Medications Medication Sig Dispensed Refills Start Date [...] age to complete this topic Care Teams Radiator Specialist Relationship Specialty Start Date End Date Odell Velasco MD [address] [address] PCP - General Internal Medicine 12/15/20
--- OUTSIDE RECORDS SUMMARY | 2025-01-21 10:33 | XMS_ITS | Encounter Summary ---
Author Organization [facility] Address [address] [place] [address] Care Team Providers Care Program Director Name Role Phone Odell Velasco MD Primary Care Provider [phone] Encounter Details Date Type Department Care Team (Late st Contact Info) Description 06/11/2024 Lab Requisition [facility] - Main Lab 299 [facility] [place] [address] Hay Diaz PA [facility] [address] [facility] [address] [place] [address] Heart failure, unspecified (CMS/HCC V24, CMS/HCC V28); [...] LAB CHEMISTRY METHOD 06/11/2024 12:06 PM EST [facility] Blood Venous blood specimen / Unknown Venipuncture / Unknown 06/11/2024 5:52 AM EST 06/11/2024 11:59 AM EST Narrative [facility] - 06/11/2024 12:06 PM EST The Siemens Advia Centaur Chemiluminescent Immunoassay is used. Results obtained with different assay methods or kits cannot be used interchangeably. Results cannot be interpreted as absolute evidence of the presence or absence of malignant disease. [facility] LAB BLOOD ORDERABLES Juanita l Result [facility] [address] [place] [address], * (ABNORMAL) Lipid panel with reflex to direct LDL (06/11/2024 5:52 AM EST) Cholesterol 111 0 - 200 mg/dL LAB CHEMISTRY METHOD 06/11/2024 12:17 PM EST [facility] Triglycerides 107 0 - 150 mg/dL LAB CHEMISTRY METHOD 06/11/2024 12:17 PM EST [facility] HDL 25(L) >=40 mg/dL LAB CHEMISTRY METHOD 06/11/2024 12:17 PM EST [facility] LDL Calculated 65 0 - 100 mg/dL LAB CHEMISTRY METHOD 06/11/2024 12:17 PM [facility] VLDL Cholesterol Hu 21.4 mg/dL LAB CHEMISTRY METHOD 06/11/2024 12:17 PM [facility] Non HDL Chol. (LDL+VLDL) 86 <145 mg/dL LAB CHEMISTRY METHOD 06/11/2024 12:17 PM [facility] Chol/HDL Ratio 4.4 0.0 - 4.4 LAB CHEMISTRY METHOD 06/11/2024 12:17 PM [facility] Blood Venous blood specimen / Unknown Venipuncture / Unknown 06/11/2024 5:52 AM EST 06/11/2024 11:59 AM EST [facility] LAB BLOOD ORDERABLES Juanita l Result [facility] [address] [place] [address], * (ABNORMAL) Comprehensive metabolic panel (06/11/2024 5:52 AM EST) Sodium 138 133 - 145 mmol/L LAB CHEMISTRY METHOD 06/11/2024 12:17 PM [facility] Potassium 4.4 3.5 - 5.5 mmol/L LAB CHEMISTRY METHOD 06/11/2024 12:17 PM [facility] Chloride 106 96 - 110 mmol/L LAB CHEMISTRY METHOD 06/11/2024 12:17 PM [facility] CO2 25 21 - 32 mmol/L LAB CHEMISTRY METHOD 06/11/2024 12:17 PM [facility] Anion Gap 7 3 - 11 LAB CHEMISTRY METHOD 06/11/2024 12:17 PM [facility] Glucose 84 70 - 100 mg/dL LAB CHEMISTRY METHOD 06/11/2024 12:17 PM [facility] BUN 16 5 - 25 mg/dL LAB CHEMISTRY METHOD 06/11/2024 12:17 PM [facility] Creatinine 1.38(H) 0.70 - 1.30 mg/dL LAB CHEMISTRY METHOD 06/11/2024 12:17 PM [facility] eGFR 52(L) >=60 mL/min/1. 73m2 LAB CHEMISTRY METHOD 06/11/2024 12:17 PM [facility] Comment:Calculation based on the Chronic Kidney Disease Epidemiology Collaboration (CKD-EPI) equation refit without adjustment for race. BUN/Creatinine Ratio 11.6 LAB CHEMISTRY METHOD 06/11/2024 12:17 PM [facility] Calcium 8.6 8.5 - 10.5 mg/dL LAB CHEMISTRY METHOD 06/11/2024 12:17 PM [facility] AST (SGOT) 10 10 - 42 unit/L LAB CHEMISTRY METHOD 06/11/2024 12:17 PM [facility] ALT (SGPT) 13 10 - 60 unit/L LAB CHEMISTRY METHOD 06/11/2024 12:17 PM [facility] Alkaline Phosphatase 82 42 - 121 unit/L LAB CHEMISTRY METHOD 06/11/2024 12:17 PM [facility] Total Protein 7.0 6.0 - 8.0 g/dL LAB CHEMISTRY METHOD 06/11/2024 12:17 PM [facility] Albumin 3.2 3.2 - 5.0 g/dL LAB CHEMISTRY METHOD 06/11/2024 12:17 PM [facility] Total Bilirubin 0.4 0.0 - 1.4 mg/dL LAB CHEMISTRY METHOD 06/11/2024 12:17 PM [facility] Blood Venous blood specimen / Unknown Venipuncture / Unknown 06/11/2024 5:52 AM EST 06/11/2024 11:59 AM EST [facility] LAB BLOOD ORDERABLES Juanita l Result [facility] [address] [place] [address], [place] [phone] * (ABNORMAL) Complete blood count (06/11/2024 5:52 AM EST) [facility] WBC 7.4 4.8 - 10.8 K/mcL LAB HEMETOLOGY METHOD 06/11/2024 12:01 PM [facility] RBC 3.70(L) 4.50 - 5.50 M/mcL LAB HEMETOLOGY METHOD 06/11/2024 12:01 PM [facility] Hemoglobin 10.6(L) 13.5 - 17.5 g/dL LAB HEMETOLOGY METHOD 06/11/2024 12:01 PM [facility] Hematocrit 32.3(L) 42.0 - 54.0 % LAB HEMETOLOGY METHOD 06/11/2024 12:01 PM [facility] MCV 88.3 79.0 - 98.0 FL LAB HEMETOLOGY METHOD 06/11/2024 12:01 PM [facility] MCH 29.0 27.0 - 32.0 pcg LAB HEMETOLOGY METHOD 06/11/2024 12:01 PM [facility] MCHC 32.8 32.0 - 37.0 g/dL LAB HEMETOLOGY METHOD 06/11/2024 12:01 PM [facility] RDW 14.1 11.0 - 15.0 % LAB HEMETOLOGY METHOD 06/11/2024 12:01 PM [facility] Platelets 278 130 - 400 K/mcL LAB HEMETOLOGY METHOD 06/11/2024 12:01 PM [facility] MPV 10.3 7.0 - 11.0 FL LAB HEMETOLOGY METHOD 06/11/2024 12:01 PM [facility] NRBC 0.0 <1.0 % LAB HEMETOLOGY METHOD 06/11/2024 12:01 PM EST [facility] NRBC Absolute 0.00 <0.10 K/mcL LAB HEMETOLOGY METHOD 06/11/2024 12:01 PM EST [facility] Blood Venous blood specimen / Unknown Venipuncture / Unknown 06/11/2024 5:52 AM EST 06/11/2024 12:00 PM EST us [facility] LAB BLOOD ORDERABLES Juanita l Result [facility] [address] [place] [address], documented in this encounter Visit Diagnoses Diagnosis Heart failure, unspecified (CMS/HCC V24, CMS/HCC V28) Heart failure, unspecified Hyperlipidemia, unspecified Benign prostatic hyperplasia without lower urinary tract symptoms Essential (primary) hypertension Unspecified essential hypertension documented in this encounter Care Teams Program Director Relationship Specialty Start Date End Date Odell Velasco MD [address] PCP - General Internal Medicine 07/14/14 documented as of this encounter
== END 2025-01-21 09:40 | disposition home or self-care (01) ==
LOC: HO.US 09:39
PROVIDERS: PCP Internal Medicine; Visit Provider Internal Medicine
DX: N40.0 Benign prostatic hyperplasia without lower urinary tract symptoms (principal); R97.20 Elevated prostate specific antigen [PSA]
CPT/HCPCS: 76770

== ENCOUNTER → 2025-01-21 10:01 | Outpatient (BNV) | payer MEDICARE, MEDICAID, SELFPAY | PROVIDERS: PCP Internal Medicine; Visit Provider Radiology Diagnostic Radiology | DX: N40.0 Benign prostatic hyperplasia without lower urinary tract symptoms (principal); N28.1 Cyst of kidney, acquired | CPT/HCPCS: 76770 ==